=== PATIENT | male | born 1950 | race African-American/Black ===

== ENCOUNTER 2018-01-15 19:28 | Emergency (ER) | payer OTHER ==
[~2018-01-15] VITALS: Ht 167.6 cm; Wt 66.3 kg
[2018-01-15 19:36] VITALS: BP 170/90
--- NOTE | 2018-01-15 19:38 | NUR ---
TO BED # 11 AMBULATORY, REPORT GIVEN TO BRADLEY SMITH
--- NOTE | 2018-01-15 20:00 | NUR ---
PT BIB SELF C/O HIGH BLOOD SUGAR READ AT HOME, BLISTER TO RT FOOT,N/T TO EXTREMEITIES. PT IS AWAKE AND ALERT, ACTING APPROPRIATE, SITTING IN BED GRANDAUGHTER AT BEDSIDE. PT STATES HE TOOK HIS INSULIN THIS AM THEN RE TOOK BS AND IT READ HIGH. NO OPEN SKIN NOTED , EDEMA NOTED TO BL LOWER LEGS, +CMS. PMH HIGH CHOLESTEROL, HTN, DM NKDA
[2018-01-15] MEDS ORDERED: NACL 0.9% 2,000 ML IV ONE (20:05)
--- NOTE | 2018-01-15 20:26 | NUR ---
DR SMYTH AT BEDSIDE EVALUATING PT.
[2018-01-15 20:54] LABS: ANION GAP 9.9 (8-16); CARBON DIOXIDE 28.6 mmol/L (21-32); CREATININE 1.6 mg/dL (0.7-1.3); POTASSIUM 4.5 mmol/L (3.5-5.1)
[2018-01-15] MEDS ORDERED: NACL 0.9% 1,000 ML IV ONE (21:05)
[2018-01-15 21:59] VITALS: BP 187/97
--- NOTE | 2018-01-15 21:59 | NUR ---
Patient discharged with v/s stable. Written and verbal after care instructions given and explained. Patient verbalized understanding. Ambulatory with steady gait. All questions addressed prior to discharge. Advised to follow up with PMD.
== END 2018-01-15 21:59 | disposition home or self-care (01) ==
LOC: MED 19:28
DX: E11.65 Type 2 diabetes mellitus with hyperglycemia (principal); R42 Dizziness and giddiness; I10 Essential (primary) hypertension
CPT/HCPCS: 36415; 80048; 82948; 96360; 96361; 99285; J7030; 99284

== ENCOUNTER 2018-04-12 00:20 | Emergency (ER) | payer OTHER ==
[~2018-04-12] VITALS: Ht 167.6 cm; Wt 68.0 kg
[2018-04-12 00:42] VITALS: BP 166/95
--- NOTE | 2018-04-12 00:45 | NUR ---
PT TAKEN TO BED 11
--- NOTE | 2018-04-12 00:50 | NUR ---
Note undone in EDM - 04/12/18 at 0056 by DONNA 67 Y/O M PRESENTS TO ED W/C/O L KNEE L LEG PAIN STATUS POST T/C YESTERDAY. +SEATBELT, PT WAS PASSANGER. PT DENIES LOC, DENIES HITTING HEAD. PT DENIES N/V/D; AAOX4, PERRL, WITH EVEN AND STEADY GAIT; LUNGS CLEAR BL, BREATHING UNLABORED; HR EVEN AND REGULAR, BL PERIPHERAL PULSES PRESENT; BS ACTIVE X4, NO TENDERNESS TO PALPATION, NO HEPATOSPLENOMEGALLY PALPATED, RESONANT TO PERCUSSION; PT DENIES ANY FEVER, CP, SOB, OR COUGH AT THIS TIME; PT STATES 8/10 PAIN AT THIS TIME; VSS; PATIENT POSITIONED FOR COMFORT; HOB ELEVATED; BEDRAILS UP X2; BED DOWN.
--- NOTE | 2018-04-12 00:50 | NUR ---
67 Y/O M PRESENTS TO ED W/C/O L KNEE L LEG PAIN STATUS POST T/C YESTERDAY. +SEATBELT, PT WAS DIRECTOR DATA MANAGEMENT. PT DENIES LOC, DENIES HITTING HEAD. PT DENIES N/V/D; AAOX4, PERRL, WITH EVEN AND STEADY GAIT; LUNGS CLEAR BL, BREATHING UNLABORED; HR EVEN AND REGULAR, BL PERIPHERAL PULSES PRESENT; BS ACTIVE X4, NO TENDERNESS TO PALPATION, NO HEPATOSPLENOMEGALLY PALPATED, RESONANT TO PERCUSSION; PT DENIES ANY FEVER, CP, SOB, OR COUGH AT THIS TIME; PT STATES 8/10 PAIN AT THIS TIME; VSS; PATIENT POSITIONED FOR COMFORT; HOB ELEVATED; BEDRAILS UP X2; BED DOWN.
[2018-04-12] MEDS ORDERED: KETOROLAC 60 MG/2 ML VIAL IM ONE (01:00)
--- NOTE | 2018-04-12 02:00 | NUR ---
DPatient discharged with v/s stable. Written and verbal after care instructions given and explained. Patient alert, oriented and verbalized understanding of instructions. Ambulatory with steady gait. All questions addressed prior to discharge. ID band removed. Patient advised to follow up with PMD. Rx of NORCO, IBUPROFEN given. Patient educated on indication of medication including possible reaction and side effects. Opportunity to ask questions provided and answered.
[2018-04-12 02:03] VITALS: BP 136/81
== END 2018-04-12 02:00 | disposition home or self-care (01) ==
LOC: MED 00:20
DX: M25.572 Pain in left ankle and joints of left foot (principal); E11.9 Type 2 diabetes mellitus without complications; I10 Essential (primary) hypertension; V89.2XXA Person injured in unspecified motor-vehicle accident, traffic, initial encounter; Y93.89 Activity, other specified; Y92.89 Other specified places as the place of occurrence of the external cause; Y99.8 Other external cause status
CPT/HCPCS: 96372; 99283; J1885

== ENCOUNTER 2018-09-12 12:26 | Inpatient (IN) | payer OTHER ==
[~2018-09-12] VITALS: Ht 170.2 cm; Wt 74.4 kg
[2018-09-12 12:36] VITALS: BP 224/116
--- NOTE | 2018-09-12 12:45 | NUR ---
68 YEAR OLD MALE BIB SELF C/O BUE, BLE, AND ORBITAL EDEMA. PT REPORTS HEADACHE AT 10. UPON ASSESSMENT PT WAS NOTED WITH OPEN WOUNDS TO LLE. PMH OF DM AND HTN. CONNECTED TO MONITOR AND WAITING FOR ER MD EVALUATION. Addendum: 09/12/18 at 1319 by JEAN PT WAS NOTED WITH OPEN WOUNDS TO RIGHT LOWER LEG AND ANKLE.
[2018-09-12] MEDS ORDERED: hydrALAZINE 20 MG/ML VIAL IVP ONE (13:25)
[2018-09-12] MEDS ORDERED: ENALAPRILAT 2.5 MG/2 ML VIAL IVP ONE (13:25)
[2018-09-12 14:37] LABS: BASOPHILS % (AUTO) 0.7 % (0.0-2.0); EOSINOPHILS # (AUTO) 0.1 K/uL (0-0.4); HEMATOCRIT 28.3 % (36-52); HEMOGLOBIN 9.7 g/dL (12.0-18.0); LYMPHOCYTES # (AUTO) 0.9 K/uL (2.0-11.5); LYMPHOCYTES % (AUTO) 12.2 % (20.5-51.1); MEAN CORPUSCULAR HEMOGLOBIN 29 pg (27-31); MEAN CORPUSCULAR HGB CONC 34 g/dL (33-37); MONOCYTES # (AUTO) 0.5 K/uL (0.8-1.0); MONOCYTES % (AUTO) 6.8 % (1.7-9.3); NEUTROPHILS # (AUTO) 5.6 K/uL (1.8-7.7); NEUTROPHILS % (AUTO) 79.3 % (42.2-75.2); PLATELET COUNT (AUTO) 329 K/uL (140-450); RED BLOOD CELL COUNT(AUTO) 3.37 MIL/uL (4.20-6.10); RED CELL DISTRIBUTION WIDTH 12.6 % (11.6-13.7)
--- NOTE | 2018-09-12 14:50 | NUR ---
BP REDUCED TO 169/80 POST MEDICATION ADMIN. WILL CONTINUE TO ASSESS.
[2018-09-12 15:04] LABS: CREATINE KINASE MB 3.3 ng/mL (0-3.6)
[2018-09-12 15:07] LABS: CHOL/HDL RATIO 4.4 (1-4.5)
[2018-09-12 15:08] LABS: ANION GAP 12.5 (8-16); CARBON DIOXIDE 27.3 mmol/L (21-32); CREATININE 1.9 mg/dL (0.7-1.3); POTASSIUM 3.8 mmol/L (3.5-5.1); TOTAL BILIRUBIN 0.2 mg/dL (0.0-1.0)
[2018-09-12 15:09] LABS: ALBUMIN 1.9 g/dL (3.4-5.0)
[2018-09-12] MEDS ORDERED: INSULIN REGULAR, HUMAN 100 UNIT/ML VIAL IVP ONE (15:20)
[2018-09-12] MEDS ORDERED: SIMVASTATIN 40 MG TAB PO STA (15:21)
[2018-09-12] MEDS ORDERED: FUROSEMIDE 40 MG/4 ML VIAL IVP ONE (15:55)
--- NOTE | 2018-09-12 16:16 | NUR ---
PT UNABLE TO RECALL NAMES/DOSES OF HOME MEDICATIONS AT THIS TIME.
[2018-09-12] MEDS ORDERED: DEXTROSE 50% 50 ML SYR IVP PRN (17:20)
--- NOTE | 2018-09-12 17:20 | NUR ---
RECEIVED REPORT FROM ER NURSE ABUNDIO. PATIENT ARRIVED UNIT VIA GURNEY ACCOMPANIED WITH SISTER KENDALL. PATIENT IS AOX4. DENIES PAIN. RA. NO SIGNS OF DISTRESS NOTED. IV ON R AC 22, INTACT AND CLEAN, NOT INFUSING AT THIS TIME. RIGHT LATERAL LEG WOUND AND MID LEG WOUND NOTED. PICTURES TAKEN. PATIENT IS ABLE TO AMBULATE WITH STEADY GAIT. ORIENTED PATIENT TO THE ROOM, AND INSTRUCTED PATIENT ON HOW TO USE THE CALL LIGHT, TV, BED REMOTE,LIGHTS AND BATHROOM. PATIENT VERBALIZED UNDERSTANDING. DISCUSSED PLAN OF CARE WITH PATIENT AND PATIENT VERBALIZED UNDERSTANDING. VITAL SIGNS TAKEN. MRSA TAKEN. TELE MONITOR ATTACHED. BED IN LOW POSITION AND CALL LIGHT WITHIN REACH.
--- NOTE | 2018-09-12 17:23 | NUR ---
Patient will be admitted to care of [facility]. Admited to TELE VIA GUENRY WITH VSS. Will go to room 105B. Belongings list completed. Report to RUSS SMITH.
[2018-09-12] MEDS ORDERED: DOCUSATE SODIUM 250 MG GELCAP PO PRN (17:25)
[2018-09-12] MEDS ORDERED: guaiFENesin DM 200/20 MG-10 ML 10 ML UDC PO PRN (17:25)
[2018-09-12] MEDS ORDERED: ALBUTEROL 0.083% 2.5 MG/3 ML NEBU INH PRN (17:25)
[2018-09-12] MEDS ORDERED: MAG SULF 2000 MG/WATER PREMIX 50 ML IV PRN (17:25)
[2018-09-12] MEDS ORDERED: ZOLPIDEM 5 MG TAB PO PRN (17:25)
[2018-09-12] MEDS ORDERED: ACETAMINOPHEN 650 MG SUPP RC PRN (17:25)
[2018-09-12] MEDS ORDERED: HYDROcodone/APAP 5/325 MG 1 TAB TAB PO PRN (17:25)
[2018-09-12] MEDS ORDERED: ACETAMINOPHEN 325 MG TAB PO PRN (17:25)
[2018-09-12] MEDS ORDERED: LORazepam 2 MG/ML VIAL IVP PRN (17:25)
[2018-09-12] MEDS ORDERED: ALUMINUM HYD/MAG/SIMETHICONE 30 ML UDC PO PRN (17:25)
[2018-09-12] MEDS ORDERED: POTASSIUM CHLORIDE 40 MEQ, LIDOCAINE 1% 25 MG in NACL 0.9% 250 ML IV PRN (17:25)
[2018-09-12] MEDS ORDERED: SODIUM PHOSPHATE 118 ML ENEM RC PRN (17:25)
[2018-09-12] MEDS ORDERED: MAGNESIUM OXIDE 400 MG TAB PO PRN (17:25)
[2018-09-12] MEDS ORDERED: ONDANSETRON 4 MG/2 ML VIAL IVP PRN (17:25)
[2018-09-12] MEDS ORDERED: IPRATROPIUM 0.02% 0.5 MG/2.5 ML NEBU INH PRN (17:25)
[2018-09-12] MEDS ORDERED: POTASSIUM CHLORIDE 10 MEQ TABER PO PRN (17:25)
[2018-09-12] MEDS ORDERED: BISACODYL 10 MG SUPP RC PRN (17:25)
[2018-09-12] MEDS ORDERED: diphenhydrAMINE 50 MG/ML VIAL IVP PRN (17:25)
--- NOTE | 2018-09-12 18:05 | NUR ---
PATIENT IS SITTING UP ON BED AND EATING DINNER. DENIES PAIN AND SOB. NO SIGNS OF DISTRESS NOTED.
[2018-09-12 19:00] VITALS: BP 179/82
--- NOTE | 2018-09-12 19:25 | NUR ---
ENDORSED PATIENT AT BEDSIDE TO METAPHYSICIAN NURSE FOR CONTINUITY OF CARE. PATIENT IS IN STABLE CONDITION.
--- NOTE | 2018-09-12 19:30 | NUR ---
RECEIVED BEDSIDE REPORT FROM LUIS SOLANO, PER DAY SHIFT EXECUTIVE DIRECTOR OF NURSING NEEDS TO CE COMPLETED. PATIENT IN BED, AAOX4, DENIES PAIN. ADMISSION QUESTIONS ASKED. IV IN RIGHT AC 22 G SL. NOTED WOUND ON LEG, PICTURE IN CHART. MRSA SCREEN COLLECTED AND SENT TO LAB. EXPLAINED PLAN OF CARE, WILL CONTINUE TO MONITOR.
[2018-09-12] MEDS: cloNIDine 0.1 MG TAB PO PRN (20:20)
[2018-09-12] MEDS: BLOOD GLUCOSE MONITORING 1 DEV DEV FS SCH (20:23)
[2018-09-12] MEDS: INSULIN LISPRO SLIDING SCALE 100 UNITS/ML VIAL SUBQ PRN (20:23)
--- NOTE | 2018-09-12 20:24 | NUR ---
PTS BP 179/82 HR 110 GAVE CATAPRES WILL REASSESS. BG 462 GAVE 14 UNITS ACCORDING TO MD ORDER. WILL REASSESS AND CALL
--- NOTE | 2018-09-12 21:10 | NUR ---
BP 120/63 HR 80 AFTER CLONIDINE. BG 429 AFTER [address] UN[address]MINISTR[address]. [address] CECILIA RODRIGUEZ SINGING TEACHER.
--- NOTE | 2018-09-12 22:55 | NUR ---
CALLED MARGAUX FROM RADIOLOGY REGARDING ORDERS FOR DR BROOKS. DR BROOKS IS NOT AVAILABLE RIGHT NOW DR RODRIGUEZ IS LOCKER OPERATOR. NOTIFIED MARGAUX THAT DR BROOKS SHOULD BE THE ONE TO VERIFY THE DUPLICATE ORDER. WILL ENDORSE TO DAY SHIFT TO ENSURE ORDER IS CORRECTED ONCE DR BROOKS IS AVAILABLE.
--- NOTE | 2018-09-12 23:27 | NUR ---
CALL BACK FROM DR RODRIGUEZ ORDER FOR 20 U HUMALOG NOW AND TO INCREASE MAINTENANCE DOSAGE OF GLUCOTROL TO 10 MG A DAY AND TO GIVE ONE DOSE NOW OF GLUCOTROL. WILL PUT IN ORDERS.
[2018-09-12] MEDS ORDERED: INSULIN LISPRO 100 UNITS/ML VIAL SUBQ ONE (23:30)
[2018-09-12] MEDS ORDERED: glipiZIDE 10 MG TAB PO ONE (23:35)
--- NOTE | 2018-09-12 23:44 | NUR ---
GAVE DUE MEDICATIONS
[2018-09-13] VITALS: BP 125/70
--- NOTE | 2018-09-13 01:42 | NUR ---
BLOOD GLUCOSE 161
[2018-09-13] MEDS ORDERED: INFLUENZA VIRUS VACCINE QUAD 0.5 ML SYR IMVAC PRN ×2 (03:30→05:05)
[2018-09-13] MEDS ORDERED: PNEUMOCOCCAL VACCINE 23 MCG/0.5 ML VIAL IMVAC ONE (03:30)
[2018-09-13 04:00] VITALS: BP 147/88
--- NOTE | 2018-09-13 04:00 | NUR ---
V/S TAKEN BP WITHIN BASELINE WILL CONTINUE TO MONITOR
[2018-09-13] MEDS ORDERED: PNEUMOCOCCAL VACCINE 23 MCG/0.5 ML VIAL IMVAC PRN (05:05)
[2018-09-13] MEDS: BLOOD GLUCOSE MONITORING 1 DEV DEV FS SCH ×2 (06:09→12:27)
[2018-09-13] MEDS: glipiZIDE 5 MG TAB PO SCH ×2 (06:14→17:30)
--- NOTE | 2018-09-13 07:02 | NUR ---
BG 104 NO COVERAGE NEEDED
[2018-09-13 07:30] LABS: BASOPHILS % (AUTO) 0.6 % (0.0-2.0); EOSINOPHILS # (AUTO) 0.1 K/uL (0-0.4); EOSINOPHILS % (AUTO) 1.2 % (0.0-4.0); HEMATOCRIT 26.6 % (36-52); HEMOGLOBIN 9.1 g/dL (12.0-18.0); LYMPHOCYTES # (AUTO) 0.9 K/uL (2.0-11.5); LYMPHOCYTES % (AUTO) 12.8 % (20.5-51.1); MEAN CORPUSCULAR HEMOGLOBIN 28 pg (27-31); MEAN CORPUSCULAR HGB CONC 34 g/dL (33-37); MEAN CORPUSCULAR VOLUME 82.4 fL (80-94); MONOCYTES # (AUTO) 0.4 K/uL (0.8-1.0); MONOCYTES % (AUTO) 5.3 % (1.7-9.3); NEUTROPHILS # (AUTO) 5.4 K/uL (1.8-7.7); NEUTROPHILS % (AUTO) 80.1 % (42.2-75.2); PLATELET COUNT (AUTO) 343 K/uL (140-450); RED BLOOD CELL COUNT(AUTO) 3.23 MIL/uL (4.20-6.10); RED CELL DISTRIBUTION WIDTH 12.8 % (11.6-13.7); WHITE BLOOD COUNT (AUTO) 6.8 K/uL (4.8-10.8)
[2018-09-13] MEDS ORDERED: glipiZIDE 5 MG TAB PO SCH (07:30)
--- NOTE | 2018-09-13 07:37 | NUR ---
ENDORSED PATIENT TO DAY SHIFT NURSE PATIENT STABLE
--- NOTE | 2018-09-13 07:38 | NUR ---
RECEIVED REPORT FROM BARKING MACHINE FEEDER NURSE [facility] FOR CONTINUITY OF CARE. PT IN STABLE CONDITION. RESPIRATIONS EVEN AND UNLABORED. IV INTACT AND PATENT. BED IN LOW POSITION. CALL LIGHT AT BEDSIDE. SAFETY MEASURES IN PLACE. WILL CONTINUE MONITOR.
[2018-09-13 08:00] VITALS: BP 198/99
[2018-09-13] MEDS: cloNIDine 0.1 MG TAB PO PRN (08:01)
[2018-09-13 08:35] LABS: CARBON DIOXIDE 22.4 mmol/L (21-32)
--- NOTE | 2018-09-13 08:46 | NUR ---
RECEIVED PATIENT ON ROOM AIR, PULSE OX SAT 98%. PATIENT DENIES ANY SHORTNESS OF BREATH. BREATH SOUNDS CLEAR. NO PRN TX GIVEN; NO TX INDICATED AT THIS TIME. NO RESPIRATORY DISTRESS NOTED AT THIS TIME. AMBU BAG AT BEDSIDE. WILL CONTINUE TO MONITOR.
[2018-09-13] MEDS ORDERED: LISINOPRIL 20 MG TAB PO SCH (09:00)
[2018-09-13] MEDS ORDERED: METOPROLOL 50 MG TAB PO SCH (09:00)
[2018-09-13 09:05] LABS: ANION GAP 16.2 (8-16); CREATININE 1.9 mg/dL (0.7-1.3)
--- NOTE | 2018-09-13 09:10 | NUR ---
CRITICAL LAB: POTASSIUM 2.6 DR BROOKS AWARE. ORDERS GIVEN.
[2018-09-13 09:11] LABS: POTASSIUM 2.6 mmol/L (3.5-5.1)
[2018-09-13 10:24] LABS: CHOL/HDL RATIO 4.1 (1-4.5)
[2018-09-13 10:26] LABS: PROTHROMBIN TIME 8.6 secs (10.8-13.4)
[2018-09-13] MEDS ORDERED: FUROSEMIDE 40 MG TAB PO SCH (10:45)
[2018-09-13 12:00] VITALS: BP 146/75
--- NOTE | 2018-09-13 12:14 | NUR ---
PT LYING IN BED IN STABLE CONDITION WATCHING TV. RESPIRATIONS EVEN AND UNLABORED. BED IN LOW POSITION. CALL LIGHT AT BEDSIDE. WILL CONTINUE TO MONITOR.
[2018-09-13] MEDS: INSULIN LISPRO SLIDING SCALE 100 UNITS/ML VIAL SUBQ PRN ×2 (12:38→14:35)
[2018-09-13] MEDS ORDERED: POTASSIUM CHLORIDE 10 MEQ TABER PO SCH (14:00)
--- NOTE | 2018-09-13 14:25 | NUR ---
PT LYING IN BED IN STABLE CONDITION. BED IN LOW POSITION. CALL LIGHT AT BEDSIDE. WILL CONTINUE TO MONITOR.
[2018-09-13 16:00] VITALS: BP 149/79
--- NOTE | 2018-09-13 16:00 | NUR ---
PICTURES TAKEN OF RIGHT LOWER LEG WOUND, CLEANED WITH STERILE WATER, PAT DRY, OPEN TO AIR.
[2018-09-13 16:56] LABS: ANION GAP 10.8 (8-16); CARBON DIOXIDE 26.2 mmol/L (21-32)
--- NOTE | 2018-09-13 18:10 | NUR ---
GAVE DISCHARGE INSTRUCTIONS AND PRESCRIPTIONS TO TAKE TO PHARMACY. PT VERBALIZED UNDERSTANDING OF INSTRUCTIONS. IV REMOVED LUMEN INTACT. ID BAND REMOVED. GAVE INFLUENZA/PNA VACCINE. PT TOLERATED WELL. PT REFUSED WHEELCHAIR, WALKED PT TO LOBBY WHERE HE OPTED TO WAIT FOR FAMILY MEMBER TO TELEPHONE ORDER SUPERVISOR. PT CALLED MULTIPLE FAMILY MEMBERS TO SEE WHO WILL PICK HIM UP FIRST. PT WAS OFFERED MULTIPLE TIMES TO WAIT IN ROOM TILL FAMILY CAME, PT REFUSED. PT WAITED IN LOBBY IN STABLE CONDITION. AAOX4.
[2018-09-13] MEDS ORDERED: ATORVASTATIN 20 MG TAB PO SCH (19:00)
[2018-09-14] MEDS ORDERED: TAMSULOSIN 0.4 MG CAP PO SCH (08:30)
--- NOTE | 2018-09-14 08:51 | NUR ---
Wound consult not done. pt. discharged.
[2018-09-14] MEDS ORDERED: FUROSEMIDE 40 MG TAB PO SCH (09:00)
--- NOTE | 2018-09-14 15:27 | NUR ---
CALLED 'S OFFICE AND SET UP FOLLOW UP APPOINTMENT FOR September. [place]ESS [id number] [address] [place] [facility] PHONE [phone]. I CALLED THE PATIENT AND HE HAD ME SPEAK WITH HIS SISTER, KENDALL STARKS HER PHONE [phone]. SHE SAID THE PATIENT IS NOT GOING BACK TO [place], HE WILL BE WITH HER, [address]. DOES NOT WANT TO FOLLOW UP WITH DR. HATCH. SHE SAID THAT SHE WILL CALL [facility] AND CHANGE THE ADDRESS AND SHE SAID THE PATIENT WILL FOLLOW UP WITH DR. BALDWIN [phone]. SHE WILL CALL FOR AN APPOINTMENT. I WILL CALL HER BACK TOMORROW TO FOLLOW UP.
--- NOTE | 2018-09-15 12:33 | NUR ---
SPOKE WITH THE SISTER KENDALL STARKS, . SHE SAID SHE SPOKE WITH [facility] AND THEY WILL CHANGE THE PCP TO DR. BALDWIN. KENDALL CALLED DR. BALDWIN'S OFFICE AND THEY ARE WORKING ON GETTING THE PATIENT'S INFORMATION AND THEN GETTING AN APPOINTMENT. KENDALL ASKED ME TO CANCEL THE APPOINTMENT WITH DR. HATCH IN [facility], WHICH I WILL DO..
== END 2018-09-13 18:10 | disposition home or self-care (01) | DRG 639 ==
LOC: MED 12:26 → MTU 16:31
PROVIDERS: ADMIT Internal Medicine Pulmonary Disease; ATTEND Internal Medicine Pulmonary Disease
PROC: 3E02340 Introduction of Influenza Vaccine into Muscle, Percutaneous Approach (ICD-10-PCS; principal; 2018-09-13)
PROC: 3E0234Z Introduction of Serum, Toxoid and Vaccine into Muscle, Percutaneous Approach (ICD-10-PCS; 2018-09-13)
DX: E11.65 Type 2 diabetes mellitus with hyperglycemia (principal); E87.6 Hypokalemia; E78.5 Hyperlipidemia, unspecified; E11.22 Type 2 diabetes mellitus with diabetic chronic kidney disease; I12.9 Hypertensive chronic kidney disease with stage 1 through stage 4 chronic kidney disease, or unspecified chronic kidney disease; D64.9 Anemia, unspecified; R33.9 Retention of urine, unspecified; Z23 Encounter for immunization; Z79.84 Long term (current) use of oral hypoglycemic drugs; N18.3 Chronic kidney disease, stage 3 (moderate)
CPT/HCPCS: 36415; 71045; 76770; 80048; 80053; 82550; 82553; 82948; 83036; 83880; 84484; 85025; 85379; 85610; 85730; 87081; 90732; 93005; 96374; 96375; 99285; J0360; J1815; J1940; J2001; J3480; J3490; J7030; Q0092

== ENCOUNTER 2018-09-16 11:00 | Inpatient (IN) | payer OTHER ==
[~2018-09-16] VITALS: Ht 167.6 cm; Wt 67.6 kg
[2018-09-16 11:03] VITALS: BP 212/85
--- NOTE | 2018-09-16 11:10 | NUR ---
Patient ambulated to bed 8 with family. RN evaluating patient at bedside.
--- NOTE | 2018-09-16 11:12 | NUR ---
68 Y M BIB SISTER WITH C/O MICHELINE LEG PAIN AND GROIN PAIN X 3 DAYS. PAIN 8/10. +SWELLING AT GROIN SITE. BILATERAL LEG EDEMA 3+, BP 212/85, DR GIBSON NOTIFIED. BED IS DOWN, LOCKED, BED RAIL X 1, ERMD NOTIFIED. PMH- HTN, DIABETES, HIGH CHOLESTEROL MEDS- CANT RECALL NAMES
--- NOTE | 2018-09-16 11:29 | NUR ---
Dr. Ocasio evaluating patient at bedside.
[2018-09-16] MEDS ORDERED: LISINOPRIL 5 MG TAB PO STA (11:31)
[2018-09-16] MEDS ORDERED: FUROSEMIDE 40 MG/4 ML VIAL IVP ONE (11:35)
[2018-09-16 11:58] LABS: BASOPHILS % (AUTO) 0.3 % (0.0-2.0); EOSINOPHILS # (AUTO) 0.1 K/uL (0-0.4); EOSINOPHILS % (AUTO) 1.8 % (0.0-4.0); HEMATOCRIT 26.4 % (36-52); HEMOGLOBIN 8.9 g/dL (12.0-18.0); LYMPHOCYTES # (AUTO) 0.7 K/uL (2.0-11.5); LYMPHOCYTES % (AUTO) 11.5 % (20.5-51.1); MEAN CORPUSCULAR HEMOGLOBIN 29 pg (27-31); MEAN CORPUSCULAR HGB CONC 34 g/dL (33-37); MEAN CORPUSCULAR VOLUME 84.5 fL (80-94); MONOCYTES # (AUTO) 0.5 K/uL (0.8-1.0); MONOCYTES % (AUTO) 8.1 % (1.7-9.3); NEUTROPHILS # (AUTO) 4.8 K/uL (1.8-7.7); NEUTROPHILS % (AUTO) 78.3 % (42.2-75.2); PLATELET COUNT (AUTO) 318 K/uL (140-450); RED BLOOD CELL COUNT(AUTO) 3.13 MIL/uL (4.20-6.10); RED CELL DISTRIBUTION WIDTH 12.9 % (11.6-13.7); WHITE BLOOD COUNT (AUTO) 6.2 K/uL (4.8-10.8)
[2018-09-16 12:17] LABS: ALBUMIN 1.9 g/dL (3.4-5.0); ANION GAP 10.3 (8-16); CARBON DIOXIDE 28.5 mmol/L (21-32); CREATININE 1.9 mg/dL (0.7-1.3); POTASSIUM 4.8 mmol/L (3.5-5.1); TOTAL BILIRUBIN 0.3 mg/dL (0.0-1.0)
[2018-09-16] MEDS ORDERED: LISINOPRIL 10 MG TAB ONE (12:23)
[2018-09-16] MEDS ORDERED: INSULIN REGULAR, HUMAN 100 UNIT/ML VIAL IVP ONE (12:30)
--- NOTE | 2018-09-16 12:30 | NUR ---
RAD AT BEDSIDE
--- NOTE | 2018-09-16 12:31 | NUR ---
CRITICAL LABS DOCUMENTED, REPORT FROM [place] IN LAB
[2018-09-16] MEDS ORDERED: hydrALAZINE 20 MG/ML VIAL IVP ONE (13:15)
--- NOTE | 2018-09-16 13:16 | NUR ---
bp 216/100, dr washington notified
--- NOTE | 2018-09-16 13:54 | NUR ---
pt doesnt recall the names of his medications, pt states his sister has the list and will give them to attending nurse when she arrives to hospital. brother at bedside
--- NOTE | 2018-09-16 13:54 | NUR ---
new bp is 175/79
[2018-09-16] MEDS ORDERED: ZOLPIDEM 5 MG TAB PO PRN (14:10)
[2018-09-16] MEDS ORDERED: DYR50 PO (14:16)
[2018-09-16] MEDS ORDERED: METF1000 PO (14:16)
[2018-09-16] MEDS ORDERED: METO25TA PO (14:16)
[2018-09-16] MEDS ORDERED: FERR325E14 PO (14:17)
[2018-09-16] MEDS ORDERED: GLIP10TA3 PO (14:17)
[2018-09-16] MEDS ORDERED: LISI-420 PO (14:17)
[2018-09-16] MEDS ORDERED: SIMV40TA1 PO (14:17)
[2018-09-16] MEDS ORDERED: FURO-572 PO (14:17)
[2018-09-16] MEDS ORDERED: APID SUBQ (14:17)
[2018-09-16] MEDS ORDERED: BENA40TA PO (14:17)
--- NOTE | 2018-09-16 15:25 | NUR ---
Patient will be admitted to care of dr sánchez. Admited to tele. Will go to room 112 a. Belongings list completed. Report to kenneth maria.
--- NOTE | 2018-09-16 15:25 | NUR ---
RECEIVED PT FROM CLAUDE ER NURSE. ORIENTED PT TO UNIT. ASSESSED VITALS. WENT OVER CARE PLAN AND PERFORMED ASSESSMENT, TOOK PHOTOS OF PTS OPEN TEARS ON LEGS AND PLACED THE PHOTOS IN THE PTS CHART. PLACED PT ON FALL PRECAUTIONS. PLACED YELLOW ARM BAND ON PT. AND YELLOW SIGN ON DOOR. WILL CONTINUE TO MONITOR PT
[2018-09-16 17:00] VITALS: BP 147/72
[2018-09-16] MEDS ORDERED: DEXTROSE 50% 50 ML SYR IVP PRN (17:50)
[2018-09-16] MEDS: INSULIN LISPRO SLIDING SCALE 100 UNITS/ML VIAL SUBQ PRN (17:59)
--- NOTE | 2018-09-16 18:30 | NUR ---
Dr. Montgomery at bedside to assess pt. Pt's sister & daughter at bedside as well. Pt lying comfortably in bed, no signs of distress. Call light within reach.
--- NOTE | 2018-09-16 19:34 | NUR ---
HANDOFF REPORT GIVEN TO SHIFT PRODUCTION ASSOCIATE NURSE. FAMILY AT BEDSIDE. PT IS STABLE AND APPEARS TO BE IN NO APPARENT DISTRESS.
--- NOTE | 2018-09-16 19:35 | NUR ---
RECEIVED BEDSIDE REPORT FROM JENSEN SMITH. PT IS AAO X 4. ON ROOM AIR DENIES ANY SOB OR PAIN AT THIS TIME. HAS IV ON RAC 20G SL. PT WITH WOUND ON R WATSON. PICTURES WERE TAKEN BY NURSE. MICHELINE LEG EDEMA PITTING +3. GOOD CIRCULATION AND SENSATION ON LEGS. SISTER AND DAUGHTER AT BEDSIDE. PLAN OF CARE DISCUSSED. CALL LIGHT WITHIN REACH. WILL CONTINUE TO MONITOR.
[2018-09-16 20:00] VITALS: BP 156/96
[2018-09-16] MEDS: BLOOD GLUCOSE MONITORING 1 DEV DEV FS SCH (20:21)
[2018-09-16] MEDS: METOPROLOL 50 MG TAB PO SCH (20:32)
--- NOTE | 2018-09-16 20:32 | NUR ---
DUE MEDICATIONS GIVEN PT TOLERATED WELL. BLOOD SUGAR 106. PT EATING DINNER. VITAL SIGNS ARE STABLE. Addendum: 09/16/18 at 2240 by Rose Jamison RN B/P 156/96 HR 89 100% ROOM AIR. REASSESSMENT FOR HYDRALAZINE FOR 1400 WAS NOT DOCUMENTED. WILL CONTINUE TO MONITOR.
[2018-09-16] MEDS: FUROSEMIDE 100 MG/10 ML VIAL IV SCH (20:34)
[2018-09-16] MEDS ORDERED: FUROSEMIDE 100 MG/10 ML VIAL IV SCH (21:00)
[2018-09-16] MEDS ORDERED: METOPROLOL 50 MG TAB PO SCH (21:00)
[2018-09-16] MEDS ORDERED: INSULIN LANTUS 100 UNITS/ML 10 ML VIAL SUBQ SCH (23:05)
--- NOTE | 2018-09-16 23:48 | NUR ---
BLOOD GLUCOSE 184. PER MD GIVE LANTUS 20U. PT TOLERATED WELL. HAS SNACK AT BEDSIDE. VS ARE STABLE B/P TRENDING DOWN 148/77 HR 70. ALL NEEDS MET AT THIS TIME. CALL LIGHT WITH REACH. WILL CONTINUE TO MONITOR.
[2018-09-17] VITALS (7 sets, daily range): BP systolic 134–173; BP diastolic 64–77
--- NOTE | 2018-09-17 01:00 | NUR ---
PT IS SLEEPING COMFORTABLY IN BED. NO S/S OF DISTRESS. RESPIRATIONS ARE EQUAL AND UNLABORED. CALL LIGHT WITHIN REACH.
--- NOTE | 2018-09-17 04:00 | NUR ---
VITAL SIGNS ARE STABLE. B/P 151/69 HR 71. SAFETY MEASURES ARE MET. CALL LIGHT WITHIN REACH.
[2018-09-17] MEDS: FUROSEMIDE 100 MG/10 ML VIAL IV SCH ×2 (04:25→21:25)
[2018-09-17] MEDS: INSULIN LISPRO SLIDING SCALE 100 UNITS/ML VIAL SUBQ PRN ×3 (05:59→21:21)
[2018-09-17] MEDS: BLOOD GLUCOSE MONITORING 1 DEV DEV FS SCH ×4 (06:02→21:20)
[2018-09-17 07:15] LABS: BASOPHILS % (AUTO) 0.4 % (0.0-2.0); EOSINOPHILS # (AUTO) 0.2 K/uL (0-0.4); EOSINOPHILS % (AUTO) 2.7 % (0.0-4.0); HEMATOCRIT 25.7 % (36-52); HEMOGLOBIN 8.8 g/dL (12.0-18.0); LYMPHOCYTES % (AUTO) 18.2 % (20.5-51.1); MEAN CORPUSCULAR HEMOGLOBIN 29 pg (27-31); MEAN CORPUSCULAR HGB CONC 34 g/dL (33-37); MEAN CORPUSCULAR VOLUME 83.3 fL (80-94); MONOCYTES # (AUTO) 0.3 K/uL (0.8-1.0); MONOCYTES % (AUTO) 5.5 % (1.7-9.3); NEUTROPHILS # (AUTO) 4.1 K/uL (1.8-7.7); NEUTROPHILS % (AUTO) 73.2 % (42.2-75.2); PLATELET COUNT (AUTO) 335 K/uL (140-450); RED BLOOD CELL COUNT(AUTO) 3.09 MIL/uL (4.20-6.10); RED CELL DISTRIBUTION WIDTH 12.9 % (11.6-13.7); WHITE BLOOD COUNT (AUTO) 5.7 K/uL (4.8-10.8)
--- NOTE | 2018-09-17 07:18 | NUR ---
GAVE BEDSIDE REPORT TO FAN SMITH. PT ENDORSED IN STABLE CONDITION.
--- NOTE | 2018-09-17 07:33 | NUR ---
RECEIVED HAND OFF REPORT FROM CLAIM TECHNICIAN NURSE. PT STABLE AND RESTING IN BED. WILL CONTINUE TO MONITOR
[2018-09-17 07:43] LABS: PHOSPHORUS 3.9 mg/dL (2.5-4.9)
[2018-09-17 07:46] LABS: ALBUMIN 1.5 g/dL (3.4-5.0); ANION GAP 9.8 (8-16); CARBON DIOXIDE 29.8 mmol/L (21-32); POTASSIUM 3.6 mmol/L (3.5-5.1); TOTAL BILIRUBIN 0.1 mg/dL (0.0-1.0)
[2018-09-17] MEDS: DOCUSATE SODIUM 100 MG GELCAP PO SCH (08:28)
[2018-09-17] MEDS: BENAZEPRIL 20 MG TAB PO SCH (08:28)
[2018-09-17] MEDS: TAMSULOSIN 0.4 MG CAP PO SCH (08:29)
[2018-09-17] MEDS: METOPROLOL 50 MG TAB PO SCH ×2 (08:29→21:26)
--- NOTE | 2018-09-17 08:56 | NUR ---
PATIENT HAS BEEN SCREENED AND CATEGORIZED MODERATE NUTRITION RISK. PATIENT WILL BE SEEN WITHIN 3-5 DAYS OF ADMISSION. 09/19/18-09/21/[address]
[2018-09-17] MEDS ORDERED: TRIAMTERENE 50 MG CAP PO SCH (09:00)
--- NOTE | 2018-09-17 09:23 | NUR ---
PT REQUESTED TO BE PLACED ON BEDSIDE COMMODE. HELPED ASSIST PT ON BEDSIDE COMMODE AND ADMINISTERED MORNING MEDICATIONS. ASSESSED PT BLOOD GLUCOSE. [address] PATEL GAVE 10 UNIT HUMALOG AND 35 UNITS LANTUS Addendum: 09/17/18 at 1113 by Cami Balderrama RN WRONG PT
--- NOTE | 2018-09-17 10:20 | NUR ---
REASSESSED PTS BLOOD GLUCOSE [address] IBARRA PLACED PT ON CLEAR LIQUID DIET REQUESTED FOR CONSULT AND STAT ABG ALSO DELAYED DISCHARGE TIL 1600 PENDING PTS BLOOD SUGAR LEVEL Addendum: 09/17/18 at 1113 by Cami Balderrama RN WRONG PT
--- NOTE | 2018-09-17 12:30 | NUR ---
Bladders scan completed. Asked pt to void prior to scan, pt refused & states he doesn't need to go. 64ml bladder contents present. No bladder distention noted.
--- NOTE | 2018-09-17 14:09 | NUR ---
CM NOTE RECEIVED ORDER FOR HIGH RISK FOLLOW UP WITH [facility]. NO DISCHARGE ORDER AT THIS TIME. I SPOKE WITH [facility] # [phone] TO SET UP PATIENT'S OUTPATIENT FOLLOW UP APPOINTMENT ON SEPTEMBER 21, 2018 2:[address] JOSE RAFAEL BALDWIN AT [address] [place], [place] [phone]. I GAVE THE PATIENT HIS HIGH RISK OUTPATIENT FOLLOW UP SCHEDULE.
--- NOTE | 2018-09-17 14:15 | NUR ---
CM NOTE FAXED ORDER FOR HIGH RISK FOLLOW UP WITH [facility] AND ORDER FOR HOME HEALTH WITH [facility] TO [facility]. [facility] CM EMMIE AWARE. FAXED ORDER FOR HOME HEALTH WITH [facility] FOR TRANSITIONAL CARE MANAGEMENT AND CLINICAL PACKET TO [facility].
--- NOTE | 2018-09-17 15:23 | NUR ---
CM NOTE I SPOKE WITH THE PATIENT BEDSIDE TO CONFIRM HIS ADDRESS. PER PATIENT HE LIVES IN [place] BUT HE WILL BE STAYING POST DISCHARGE WITH HIS SISTER ROLO STARKS AT HER HOUSE AT [address] [id number] UNTIL HE RECOVERS. I SPOKE WITH THE PATIENT'S SISTER KENDALL STARKS WHO CONFIRMED THAT THE PATIENT WILL BE STAYING AT HER HOUSE POST DISCHARGE. I GAVE CHLOE OF [facility] TRANSITIONAL CARE MANAGEMENT THE ADDRESS WHERE THE PATIENT STATED HE WILL BE STAYING POST DISCHARGE AND PER CHLOE # [phone] THEY ARE ACCEPTING THE PATIENT AND WILL HAVE A NURSE TO SEE THE PATIENT WHEN DISCHARGED.
--- NOTE | 2018-09-17 17:19 | NUR ---
PT MOVED TO BED 120B ALL BELONGINGS WITH THE PATIENT. PT IS STABLE AND COMFORTABLE WITH NO COMPLAINTS OF PAIN. WILL CONTINUE TO MONITOR.
--- NOTE | 2018-09-17 19:18 | NUR ---
ENDORSED RESIDENT DOCTOR NURSE. PT RESTING COMFORTABLY IN BED. NO SIGNS OF DISTRESS. ALL SAFETY MEASURES IN PLACE
--- NOTE | 2018-09-17 19:40 | NUR ---
RECEIVED ENDORSEMENT FROM AM SHIFT RN; PATIENT A/Ox4, ABLE TO MAKE NEEDS KNOWN. INTRODUCED SELF, UPDATED BOARD. PATIENT IS AMBULATORY. NO SOB OR DISTRESS NOTED, ON ROOM AIR. IV SITE ON RIGHT ANTECUBITAL, 20 GAUGE, SALINE LOCKED. SKIN TEAR NOTED ON RIGHT LEG, HAS A WOUND EVAL SCHEDULED FOR 09/18/2018. BED IN THE LOWEST POSITION, CALL LIGHT WITHIN REACH. INITIAL ASSESSMENT DONE. WILL CONTINUE TO MONITOR.
--- NOTE | 2018-09-17 20:30 | NUR ---
VITALS TAKEN, DUE MEDS GIVEN. NO DISTRESS NOTED.
[2018-09-17] MEDS ORDERED: SIMVASTATIN 40 MG TAB PO SCH (21:00)
[2018-09-17] MEDS ORDERED: INSULIN LANTUS 100 UNITS/ML 10 ML VIAL SUBQ SCH ×2 (21:00)
--- NOTE | 2018-09-17 23:20 | NUR ---
VITALS TAKEN, PATIENT ASLEEP, VISIBLE CHEST RISE AND FALL NOTED.
[2018-09-18] VITALS: BP 139/67
--- NOTE | 2018-09-18 02:05 | NUR ---
FREQUENT CHECKS MADE, NO DISTRESS NOTED.
--- NOTE | 2018-09-18 03:50 | NUR ---
VITALS TAKEN, PATIENT ASLEEP, NO DISTRESS NOTED.
[2018-09-18 04:00] VITALS: BP 155/68
--- NOTE | 2018-09-18 06:30 | NUR ---
BLOOD SUGAR CHECK DONE; BS AT 76. GAVE ORANGE JUICE. WILL CONTINUE TO MONITOR.
[2018-09-18] MEDS: BLOOD GLUCOSE MONITORING 1 DEV DEV FS SCH ×2 (06:45→11:30)
--- NOTE | 2018-09-18 07:25 | NUR ---
ENDORSED PATIENT TO AM SHIFT RN; PATIENT IN STABLE CONDITION.
--- NOTE | 2018-09-18 07:26 | NUR ---
RECEIVED REPORT FROM ENGINEER EXHAUSTER NURSE. PATIENT LYING DOWN IN BED SLEEPING, AROUSABLE BY VOICE. NO DISTRESS NOTED. DENIES ANY PAIN. AAOX4, CALM, COOPERATIVE, SKIN COLOR APPROPRIATE TO ETHNICITY, WARM TO TOUCH. HAS RIGHT LE SKIN TEAR, DRESSING DRY AND INTACT. RESPIRATIONS EVEN, UNLABORED, ON ROOM AIR. IV SITE INTACT, PATENT, AND INFUSING IVF PER MD ORDERS. REVIEWED PLAN OF CARE WITH PATIENT. PATIENT VERBALIZED UNDERSTANDING. SAFETY MEASURES IN PLACE, CALL LIGHT WITHIN REACH. WILL CONTINUE TO MONITOR.
[2018-09-18 07:37] LABS: BASOPHILS # (AUTO) 0.1 K/uL (0.00-0.22); BASOPHILS % (AUTO) 0.8 % (0.0-2.0); EOSINOPHILS # (AUTO) 0.2 K/uL (0-0.4); EOSINOPHILS % (AUTO) 3.1 % (0.0-4.0); HEMATOCRIT 31.2 % (36-52); HEMOGLOBIN 10.5 g/dL (12.0-18.0); LYMPHOCYTES # (AUTO) 1.4 K/uL (2.0-11.5); LYMPHOCYTES % (AUTO) 20.2 % (20.5-51.1); MEAN CORPUSCULAR HEMOGLOBIN 28 pg (27-31); MEAN CORPUSCULAR HGB CONC 34 g/dL (33-37); MEAN CORPUSCULAR VOLUME 84.2 fL (80-94); MONOCYTES # (AUTO) 0.4 K/uL (0.8-1.0); MONOCYTES % (AUTO) 6.3 % (1.7-9.3); NEUTROPHILS # (AUTO) 4.7 K/uL (1.8-7.7); NEUTROPHILS % (AUTO) 69.6 % (42.2-75.2); PLATELET COUNT (AUTO) 463 K/uL (140-450); RED CELL DISTRIBUTION WIDTH 13.1 % (11.6-13.7); WHITE BLOOD COUNT (AUTO) 6.8 K/uL (4.8-10.8)
[2018-09-18 07:52] LABS: PHOSPHORUS 4.1 mg/dL (2.5-4.9)
[2018-09-18 07:56] LABS: ALBUMIN 1.9 g/dL (3.4-5.0); ANION GAP 12.5 (8-16); CARBON DIOXIDE 28.6 mmol/L (21-32); CREATININE 1.9 mg/dL (0.7-1.3); POTASSIUM 3.1 mmol/L (3.5-5.1); TOTAL BILIRUBIN 0.2 mg/dL (0.0-1.0)
[2018-09-18 08:00] VITALS: BP 166/76
[2018-09-18] MEDS: BENAZEPRIL 20 MG TAB PO SCH (09:07)
[2018-09-18] MEDS: METOPROLOL 50 MG TAB PO SCH (09:07)
[2018-09-18] MEDS: DOCUSATE SODIUM 100 MG GELCAP PO SCH (09:07)
[2018-09-18] MEDS: TAMSULOSIN 0.4 MG CAP PO SCH (09:07)
[2018-09-18] MEDS: FUROSEMIDE 100 MG/10 ML VIAL IV SCH (09:08)
--- NOTE | 2018-09-18 09:21 | NUR ---
PATIENT SITTING IN BED WATCHING TV. NO DISTRESS NOTED. DENIES ANY PAIN. SCHEDULED MEDICATIONS DUE GIVEN. WILL CONTINUE TO MONITOR.
[2018-09-18] MEDS ORDERED: GLIP10TA3 PO (09:56)
[2018-09-18] MEDS ORDERED: METO25TA PO (09:56)
[2018-09-18] MEDS ORDERED: APID SUBQ (09:56)
[2018-09-18] MEDS ORDERED: TAMS0.4C96 PO (09:56)
[2018-09-18] MEDS ORDERED: POTA10TE30 PO (10:02)
[2018-09-18] MEDS ORDERED: AMLO5TAB PO (10:02)
[2018-09-18] MEDS ORDERED: amLODIPine 5 MG TAB PO SCH (10:30)
[2018-09-18] MEDS ORDERED: POTASSIUM CHLORIDE 10 MEQ TABER PO SCH (10:30)
--- NOTE | 2018-09-18 11:00 | NUR ---
WOUND CARE NURSE AT BEDSIDE PERFORM RLE WOUND EVALUATION. WILL CONTINUE TO MONITOR.
--- NOTE | 2018-09-18 11:35 | NUR ---
FREDDY CORONA PH# [phone] OF [facility] TRANSITIONAL CARE MANAGEMENT MADE AWARE OF THE DISCHARGE ORDER TODAY. Addendum: 09/18/18 at 1504 by Nanette Harris CM CORRECTION GABRIELLA PH# [phone] OF [facility] TRANSITIONAL CARE MANAGEMENT MADE AWARE OF THE DISCHARGE ORDER TODAY.
[2018-09-18 12:00] VITALS: BP 155/76
--- NOTE | 2018-09-18 12:00 | NUR ---
PATIENT'S BLOOD GLUCOSE 402, DR. DENNY STEWART. PER DR. BALDWIN GIVE 10 UNITS HUMALOG. WILL CONTINUE TO MONITOR.
--- NOTE | 2018-09-18 12:05 | NUR ---
WOUND CARE EVALUATION NOTE: REASON FOR EVALUATION: RLE WOUND SKIN ASSESSMENT DONE TO THIS 68 Y/O MALE WITH HX OF CHRONIC UN-HEALED WOUND TO BLE, PER PT. NO REGULAR FOLLOW UP WITH HIS PRIMARY PHYSICIAN, PT. REFUSED TO BE CHECK FROM HEAD TO TOE, ONLY LIKE TO BE CHECKED ON THE RIGHT/LEFT LOWER LEG. INTEGUMENTARY: -RIGHT LE TO MEDIAL MANASA-ANKLE WITH VASCULAR ULCER , 7X7X0.1, WOUND BED DARK RED, WEEPING SKIN, NO ODOR, MANASA-WOUND SKIN DRY, NO PAIN. -LEFT LE XEROSIS -MULTIPLE SCABS TO UPPER AND LOWER EXTREMITIES RECOMMENDATIONS: -CLEANSE RIGHT LE VASCULAR ULCER WITH NS. PAT DRY, APPLY ADAPTIC DRESSING AND WRAP WITH KERLIX ROLLS QD AND PRN IS SOILING -OFFLOAD BILATERAL HEELS BY PLACING PILLOWS UNDER CALVES UNLESS OTHERWISE CONTRAINDICATED -TURN AND REPOSITION Q2H, OFFLOAD SACRALCOCCYX BY TURNING RIGHT AND LEFT -MONITOR SKIN CONDITION EACH TIME PT IS REPOSITIONS -CONTINUE TO FOLLOW RD RECOMMENDATIONS ALL ABOVE RECOMMENDATIONS DISCUSSED WITH PRIMARY RN WILL FOLLOW UP PT Q7-10 DAYS. PLEASE CONTACT WOUND CARE NURSE FOR ANY QUESTION AND CHANGE OF WOUND CONDITION.
[2018-09-18] MEDS: INSULIN LISPRO SLIDING SCALE 100 UNITS/ML VIAL SUBQ PRN (13:06)
--- NOTE | 2018-09-18 13:54 | NUR ---
PATIENT LYING DOWN IN BED WATCHING TV. NO DISTRESS NOTED. CONDITION UNCHANGED. WILL CONTINUE TO MONITOR.
--- NOTE | 2018-09-18 14:52 | NUR ---
DISCHARGE INSTRUCTIONS PROVIDED TO PATIENT IN PREFERRED LANGUAGE OF IVORIAN. INSTRUCTIONS ON FOLLOW-UP VISIT WITH DR. BALDWIN, AND DR. JASSO, NEW/CHANGED MEDICATION REGIMEN, DIET REGIMEN, AND DISEASE PROCESS/MANAGEMENT OF ANASARCA. ANSWERED ALL OF PATIENT'S QUESTIONS REGARDING DISCHARGE. PATIENT VERBALIZED COMPLETE UNDERSTANDING. ALL BELONGINGS AND PRESCRIPTIONS GIVEN TO PATIENT. AWAITING FOR PATIENT'S SISTER WHO IS ON HER WAY TO TAKE PATIENT HOME. WILL CONTINUE TO MONITOR.
--- NOTE | 2018-09-18 16:00 | NUR ---
SISTER ON UNIT READY TO TAKE PATIENT HOME. ID BANDS REMOVED. IV SITE REMOVED WITH MINIMAL BLOOD AND LUMEN COMPLETELY INTACT. ESCORTED PATIENT DOWN TO LOBBY VIA STEADY AMBULATION. PATIENT DISCHARGED TO HOME WITH HOME HEALTH AT THIS TIME.
[2018-09-19] MEDS ORDERED: FUROSEMIDE 40 MG TAB PO SCH (09:00)
[2018-09-19] MEDS ORDERED: GAUZE TP SCH (13:00)
== END 2018-09-18 16:00 | disposition home health service (06) | DRG 291 ==
LOC: MED 11:00 → MTU 14:06
PROVIDERS: ADMIT Hospitalist; ATTEND Hospitalist
DX: I13.0 Hypertensive heart and chronic kidney disease with heart failure and stage 1 through stage 4 chronic kidney disease, or unspecified chronic kidney disease (principal); I50.33 Acute on chronic diastolic (congestive) heart failure; N04.9 Nephrotic syndrome with unspecified morphologic changes; E44.0 Moderate protein-calorie malnutrition; L97.809 Non-pressure chronic ulcer of other part of unspecified lower leg with unspecified severity; E44.1 Mild protein-calorie malnutrition; E87.70 Fluid overload, unspecified; I16.0 Hypertensive urgency; N18.3 Chronic kidney disease, stage 3 (moderate); D64.9 Anemia, unspecified; E11.22 Type 2 diabetes mellitus with diabetic chronic kidney disease; E11.42 Type 2 diabetes mellitus with diabetic polyneuropathy; E11.65 Type 2 diabetes mellitus with hyperglycemia; E78.5 Hyperlipidemia, unspecified; D63.8 Anemia in other chronic diseases classified elsewhere; N40.0 Benign prostatic hyperplasia without lower urinary tract symptoms; I83.008 Varicose veins of unspecified lower extremity with ulcer other part of lower leg; Z68.24 Body mass index [BMI] 24.0-24.9, adult
CPT/HCPCS: 36415; 71045; 80053; 82948; 83036; 83735; 83880; 84100; 84484; 85025; 87081; 93005; 96374; 96375; 99285; J0360; J1644; J1815; J1940; Q0092

== ENCOUNTER 2019-03-12 07:34 | Inpatient (IN) | payer OTHER ==
[~2019-03-12] VITALS: Ht 170.2 cm; Wt 72.6 kg
[~2019-03-12 07:34] MED LIST: AMLO5TAB PO; APID SUBQ; BENA40TA PO; DYR50 PO; GLIP10TA3 PO; METO25TA PO; POTA10TE30 PO; SIMV40TA1 PO; TAMS0.4C96 PO
[2019-03-12 07:42] VITALS: BP 216/89
--- NOTE | 2019-03-12 07:54 | NUR ---
PT AAOXPT BIB SELF WITH C/O SOB, GEN ABD PAIN X 1 DAY. DENIES N/V. DENIES CHILLS OR FEVER AT THIS TIME. NO DISTRESS NOTED. PT CONNECTED TO THE MONITOR , O2 SAT 100% ON RA. PT HAS HX OF BP, DM, HIGH CHOLESTROL AND THINKS MIGHT HAVE THE COPD. HAS HIGH BP 206/91 AT THIS TIME, NO BP MEDS TAKEN AT HOME. BREATHING NORMAL AND NON-LABORED. NO USE OF THE ACCESSORY MUSCLE . PT HAS SKIN DISCOLORATION BLE , BELOW THE KNEE, HAS SKIN TEAR ON THE RT LEG AT SHAFT. SWELLING +1. DENIES ANY PAIN AT THIS TIME. PT AAOX4, ABLE TO AMKE HIS NEEDS KNOWN , COMMUNICATES PROEPRLY. ER MD TO SEE THE PT. WILL CONTNUE TO MONITOR PT. HX-- CHF, DM, BP NKA
[2019-03-12] MEDS ORDERED: FURO-570 PO (08:06)
[2019-03-12] MEDS ORDERED: GABA300C PO (08:06)
[2019-03-12] MEDS ORDERED: TRAM50TA1 PO (08:06)
[2019-03-12] MEDS ORDERED: ASPIRIN 81 MG TAB.CHEW PO ONE (08:35)
[2019-03-12] MEDS ORDERED: FUROSEMIDE 20 MG/2 ML VIAL IVP ONE (08:35)
[2019-03-12 08:38] LABS: BASOPHILS # (AUTO) 0.1 K/uL (0.00-0.22); BASOPHILS % (AUTO) 0.7 % (0.0-2.0); EOSINOPHILS # (AUTO) 0.2 K/uL (0-0.4); EOSINOPHILS % (AUTO) 2.1 % (0.0-4.0); HEMOGLOBIN 7.7 g/dL (12.0-18.0); LYMPHOCYTES # (AUTO) 0.8 K/uL (2.0-11.5); LYMPHOCYTES % (AUTO) 10.2 % (20.5-51.1); MEAN CORPUSCULAR HEMOGLOBIN 28 pg (27-31); MEAN CORPUSCULAR HGB CONC 33 g/dL (33-37); MEAN CORPUSCULAR VOLUME 84.7 fL (80-94); MONOCYTES # (AUTO) 0.6 K/uL (0.8-1.0); MONOCYTES % (AUTO) 7.2 % (1.7-9.3); NEUTROPHILS # (AUTO) 6.4 K/uL (1.8-7.7); NEUTROPHILS % (AUTO) 79.8 % (42.2-75.2); PLATELET COUNT (AUTO) 274 K/uL (140-450); RED BLOOD CELL COUNT(AUTO) 2.72 MIL/uL (4.20-6.10); RED CELL DISTRIBUTION WIDTH 14.4 % (11.6-13.7)
[2019-03-12] MEDS ORDERED: NITROGLYCERIN 2% 1 GM PKT TP ONE (08:40)
[2019-03-12 09:14] LABS: ALBUMIN 2.9 g/dL (3.4-5.0); ANION GAP 17.6 (8-16); CARBON DIOXIDE 20.8 mmol/L (21-32); CREATININE 3.2 mg/dL (0.7-1.3); POTASSIUM 4.4 mmol/L (3.5-5.1); TOTAL BILIRUBIN 0.4 mg/dL (0.0-1.0)
[2019-03-12] MEDS ORDERED: MORPHINE SULFATE 4 MG/ML SYR IVP ONE (09:45)
--- NOTE | 2019-03-12 09:54 | NUR ---
AT THE BEDSIDE DOING ABD US. YARD RIGGER TO DRAW THE BLADDER. WILL CONTINUE TO MONITOR PT.
[2019-03-12] MEDS ORDERED: amLODIPine 5 MG TAB PO ONE (10:05)
--- NOTE | 2019-03-12 10:30 | NUR ---
PT LAYING ACROSS THE BED. STATES PRESSURE AGAINST THE BED IN HIS STOMACH HELPS WITH HIS PAIN AND MAKES HIM COMFORTABLE. MD NOTIFIED AND OKAY WITH IT. INFORMED PT TO LET KNOW IF WANTS TO GO BACK TO BED. VERBALISED UNDERSTANDING. WILL CONTINUE TO MONITOR PT.
--- NOTE | 2019-03-12 11:15 | NUR ---
PIPE BLANKS CUT OFF SAW OPERATOR IN TELE , STATES SEWING MACHINE OPERATOR ZIPPER NURSE IS AT UNIT AND PT CAN BE TAKEN TO FLOOR.
--- NOTE | 2019-03-12 11:35 | NUR ---
Admitted from ER , with chief complaint of SOB, ABDOMINAL PAIN , 68 y/o ,Male, Appropriate, AAOX4, NO S/S OF ACUTE DISTRESS. PT DENIES PAIN, IV SITE PATENT AND INTACT. CALL LIGHT WITHIN REACH. PT oriented to call light, bed, phone,television, bathroom, smoking policy, visiting hours, procedures, ID bracelet on. Belongings list checked. SAFETY MEASURES ENSURED. WILL CONTINUE TO MONITOR.
--- NOTE | 2019-03-12 11:35 | NUR ---
Patient will be admitted to care of DR. POLK. Admited to [facility]ST FLOOR. Will go to room 119 A. Belongings list completed. Report to LUIS BOSS. PT STABLE WHILE DISCHARGED. FAMILY AT THE BEDSIDE.
[2019-03-12 13:01] VITALS: BP 202/83
[2019-03-12] MEDS ORDERED: ALBUTEROL SULFATE/IPRATROPIU 3 ML SOL IH PRN (13:05)
[2019-03-12] MEDS ORDERED: hydrALAZINE 20 MG/ML VIAL IVP PRN (13:30)
[2019-03-12] MEDS ORDERED: METOPROLOL 25 MG TAB PO SCH (13:30)
[2019-03-12] MEDS ORDERED: BENAZEPRIL 20 MG TAB PO SCH (14:00)
--- NOTE | 2019-03-12 14:58 | NUR ---
PATIENT HAS BEEN SCREENED AND CATEGORIZED MODERATE NUTRITION RISK. PATIENT WILL BE SEEN WITHIN 3-5 DAYS OF ADMISSION. 03/15/19 03/16/[address]
[2019-03-12] MEDS ORDERED: cloNIDine 0.1 MG TAB PO PRN (15:20)
[2019-03-12 16:10] VITALS: BP 185/90
--- NOTE | 2019-03-12 16:14 | NUR ---
PT RESTING IN BED. NO S/S OF ACUTE DISTRESS. PT DENIES PAIN. CALL LIGHT WITHIN REACH. SAFETY MEASURES ENSURED. WILL CONTINUE TO MONITOR.
[2019-03-12] MEDS ORDERED: FUROSEMIDE 40 MG/4 ML VIAL IVP SCH ×2 (17:00→18:50)
[2019-03-12] MEDS: MORPHINE SULFATE 2 MG/ML SYR IVP PRN ×2 (17:44→22:03)
--- NOTE | 2019-03-12 19:30 | NUR ---
RECEIVED FROM AM RN IN BED SLEEPING. WOKE UP WHEN TOUCHED AND CALLED BY NAME. ABLE TO VERBALIZE NEEDS WELL IN URDU. CALL LIGHT WITH IN REACH. NO SOB. NO COMPLAINTS OF PAIN DONE. BED ALARM ON. IVF SITE INTACT AND NO INFILTRATION . DX. OF ANEMIA AND ACUTE KIDNEY INJURY. DRESSING TO RIGHT LEG INTACT AND NO BLEEDING. FOR BLOOD TRANSFUSION ORDERED. WAITING FOR AVAILABILITY OF BLOOD.
[2019-03-12 20:00] VITALS: BP 176/70
[2019-03-12] MEDS ORDERED: ATORVASTATIN 20 MG TAB PO SCH (21:00)
[2019-03-12] MEDS: BLOOD GLUCOSE MONITORING 1 DEV DEV FS SCH (21:13)
[2019-03-12] MEDS: CARVEDILOL 12.5 MG TAB PO SCH (21:13)
[2019-03-12] MEDS: INSULIN LISPRO SLIDING SCALE 100 UNITS/ML VIAL SUBQ PRN (21:18)
--- NOTE | 2019-03-12 21:29 | NUR ---
PT. AWAKE AND STANDING. ENCOURAGED TO STAY IN BED AND NOT STAND UP UN NECESSARILY. STATED HE IS KIND OF REALLY RESTLESS WHEN IN BED AND THAT HE NEEDS TO STAND UP. BLOOD SUGAR PER FINGERSTICK 317. ADMINISTERED HUMALOG ORDERED. PER AM RN PT.S FAMILY MEMBERS CAME BY THIS DINNER TIME AND HAD A LOT OF SODA AND FOOD FOR HIM. EDUCATED RE: SUGAR , EXTRA FOOD AND HIS DIABETES STATUS. "OK" PLACED BED ALARM ON.
[2019-03-12 21:58] VITALS: BP 172/63
--- NOTE | 2019-03-12 22:10 | NUR ---
MEDICATED WITH MORPHINE IVP 2 MG RT COMPLAINED OF ABDOMINAL PAIN AND OVER ALL PAIN PER PT. ENCOURAGED TO LAY ON BACK AND NOT TO ATTEMPT WALKING AROUND RT WEAK. "OK" URINAL AT BEDSIDE. REMINDED TO URINATE IN URINAL RT WE ARE WATCHING HIS OUT PUT. "OK" BED ALARM ON.
--- NOTE | 2019-03-12 22:35 | NUR ---
PT. SLEEPING AT THIS TIME. BED ALARM ON. CALL LIGHT WITH IN REACH. TELEMETRY MONITORING.
[2019-03-13] VITALS: BP 154/70
--- NOTE | 2019-03-13 00:20 | NUR ---
BLOOD TRANSFUSION ORDERED 1 UNIT INFUSING AT THIS TIME. PT. NO COMPLAINTS. ABLE TO VERBALIZE SIMPLE NEEDS.
--- NOTE | 2019-03-13 00:54 | NUR ---
PT. SLEEPING. NO NOTED ADVERSE REACTIONS TO BLOOD TRANSFUSION ON GOING. CALL LIGHT WITH IN REACH. VITAL SIGNS WITH IN NORMAL LIMITS. TELEMETRY MONITORING. AFEBRILE.
--- NOTE | 2019-03-13 02:24 | NUR ---
PT. SLEEPING. NO COMPLAINTS DONE. NO ADVERSE REACTIONS NOTED TO INFUSING BLOOD TRANSFUSION.
[2019-03-13 02:51] VITALS: BP 180/73
--- NOTE | 2019-03-13 02:54 | NUR ---
DIVINE PT. UP TO RE-POSITION RT BP IS 180/75. INFORMED HIM THAT I AM ADMINISTERING HIM APRESOLINE IVP 10 MG FOR PRN SBP ABOVE 170. "OK" A/O X 4.
--- NOTE | 2019-03-13 03:35 | NUR ---
BLOOD TRANSFUSION DONE. NO COMPLAINT OF ITCHINESS OR SOB. NO NOTED RASHES TO SKIN. CALL LIGHT WITH IN REACH.
[2019-03-13 03:59] VITALS: BP 157/84
[2019-03-13] MEDS: BLOOD GLUCOSE MONITORING 1 DEV DEV FS SCH ×3 (05:36→16:30)
[2019-03-13] MEDS: INSULIN LISPRO SLIDING SCALE 100 UNITS/ML VIAL SUBQ PRN ×3 (05:38→18:52)
--- NOTE | 2019-03-13 07:10 | NUR ---
RECEIVED REPORT FROM CLAIMS ADJUSTOR NURSE NANCY FOR CONTINUITY OF CARE. PT IN STABLE CONDITION. RESPIRATIONS EVEN AND UNLABORED, ROOM AIR. IV INTACT AND PATENT. SAFETY MEASURES IN PLACE. BED IN LOW POSITION. BED ALARM ON. CALL LIGHT AT BEDSIDE. WILL CONTINUE TO MONITOR.
[2019-03-13 08:00] VITALS: BP 172/77
[2019-03-13] MEDS ORDERED: TAMSULOSIN 0.4 MG CAP PO SCH (08:30)
[2019-03-13] MEDS: CARVEDILOL 12.5 MG TAB PO SCH (08:56)
[2019-03-13] MEDS ORDERED: ENOXAPARIN 30 MG/0.3 ML SYR SUBQ SCH (09:00)
[2019-03-13] MEDS ORDERED: SIMVASTATIN 40 MG TAB PO SCH (09:00)
[2019-03-13] MEDS ORDERED: BENAZEPRIL 20 MG TAB PO SCH (09:00)
[2019-03-13] MEDS ORDERED: amLODIPine 5 MG TAB PO SCH ×2 (09:00)
--- NOTE | 2019-03-13 09:00 | NUR ---
HELD ENOXAPARIN WILL CALL GONZALO CALERO TO INFORM PHARMACY RECOMMENDATION TO CHANGE TO HEPARIN SUBQ DUE TO KIDNEY INJURY.
--- NOTE | 2019-03-13 09:39 | NUR ---
ULTRASOUND AT BEDSIDE AT THIS TIME. PT IN STABLE CONDITION.
--- NOTE | 2019-03-13 11:15 | NUR ---
YANDY GUTIERREZ DR. D/C ENOXAPARIN SUBQ, ORDER HEPARIN 5,000 UNITS SUBQ
[2019-03-13 12:00] VITALS: BP 145/88
--- NOTE | 2019-03-13 12:20 | NUR ---
SPOKE WITH CUSTOMS INVESTIGATOR TO DRAW BMP.
--- NOTE | 2019-03-13 13:04 | NUR ---
GAVE PRN PAIN MEDICATION PER PT REQUEST. PT TOLERATED WELL. WILL CONTINUE TO MONITOR. BED IN LOW POSITION. BED ALARM ON. CALL LIGHT AT BEDSIDE.
[2019-03-13] MEDS: MORPHINE SULFATE 2 MG/ML SYR IVP PRN (13:06)
[2019-03-13 14:21] LABS: APPEARANCE,URINE CLEAR (CLEAR); BILIRUBIN,URINE NEGATIVE (NEGATIVE); BLOOD, URINE 2+ (NEGATIVE); COLOR,URINE YELLOW (YELLOW); LEUKOCYTE ESTERASE ,URINE NEGATIVE (NEGATIVE); NITRITE, URINE NEGATIVE (NEGATIVE); UGLUCOSE 1+ (NEGATIVE)
[2019-03-13 14:37] LABS: RBC,URINE 0-5 /HPF (0-5); WBC,URINE NONE SEEN /HPF (0-5)
--- NOTE | 2019-03-13 15:01 | NUR ---
PT LYING IN BED YANDY COTTON AND MARY AGUILERA AT BEDSIDE. PT IN STABLE CONDITION. BED IN LOW POSITION. BED ALARM ON. CALL LIGHT AT BEDSIDE. WILL CONTINUE TO MONITOR.
[2019-03-13 15:36] LABS: BASOPHILS % (AUTO) 0.5 % (0.0-2.0); EOSINOPHILS # (AUTO) 0.2 K/uL (0-0.4); EOSINOPHILS % (AUTO) 2.2 % (0.0-4.0); HEMATOCRIT 24.3 % (36-52); HEMOGLOBIN 8.2 g/dL (12.0-18.0); LYMPHOCYTES # (AUTO) 0.8 K/uL (2.0-11.5); LYMPHOCYTES % (AUTO) 9.5 % (20.5-51.1); MEAN CORPUSCULAR HEMOGLOBIN 28 pg (27-31); MEAN CORPUSCULAR HGB CONC 34 g/dL (33-37); MEAN CORPUSCULAR VOLUME 82.8 fL (80-94); MONOCYTES # (AUTO) 0.6 K/uL (0.8-1.0); NEUTROPHILS % (AUTO) 80.8 % (42.2-75.2); PLATELET COUNT (AUTO) 280 K/uL (140-450); RED BLOOD CELL COUNT(AUTO) 2.93 MIL/uL (4.20-6.10); RED CELL DISTRIBUTION WIDTH 14.1 % (11.6-13.7); WHITE BLOOD COUNT (AUTO) 8.7 K/uL (4.8-10.8)
[2019-03-13 16:00] VITALS: BP 154/84
[2019-03-13 16:00] LABS: ALBUMIN 2.5 g/dL (3.4-5.0); ANION GAP 12.8 (8-16); CARBON DIOXIDE 24.1 mmol/L (21-32); CREATININE 3.2 mg/dL (0.7-1.3); POTASSIUM 3.9 mmol/L (3.5-5.1); TOTAL BILIRUBIN 0.4 mg/dL (0.0-1.0)
--- NOTE | 2019-03-13 17:58 | NUR ---
PT SITTING IN CHAIR EATING AN ORANGE IN STABLE CONDITION. PT IN STABLE CONDITION. CALL LIGHT WITHIN REACH. WILL CONTINUE TO MONITOR.
--- NOTE | 2019-03-13 19:15 | NUR ---
GAVE REPORT TO COSMETICS SUPERVISOR NURSE ZENON FOR CONTINUITY OF CARE. PT IN STABLE CONDITION.
--- NOTE | 2019-03-13 19:30 | NUR ---
PT LEFT VIA WHEELCHAIR W/ SISTER ACCOMPANYING HIM; WENT AND ESCORTED PATIENT TO EXIT
[2019-03-13] MEDS ORDERED: glipiZIDE 10 MG TAB PO SCH (21:00)
--- NOTE | 2019-03-15 10:01 | NUR ---
WOUND CARE CONSULT NOT DONE, PT. DISCHARGED
--- NOTE | 2019-03-16 11:20 | NUR ---
CONTACTED PATIENT'S PCP DR JOSE RAFAEL BALDWIN'S OFFICE AT [phone] FOR POST DC APPOINTMENT. APPOINTMENT SCHEDULED FOR 03/17/19 AT 1245 PM. OFFICE ADDRESS IS [address] [place] [address]. CONTACTED PATIENT AT [phone] REGARDING APPOINTMENT, ABLE TO SPEAK TO PATIENT'S SISTER ROLO STARKS. ABLE TO VERBALIZE UNDERSTANDING.
== END 2019-03-13 19:30 | disposition home or self-care (01) | DRG 682 ==
LOC: MED 07:34 → MTU 10:04
PROVIDERS: ADMIT Internal Medicine; ATTEND Internal Medicine
PROC: 30233N1 Transfusion of Nonautologous Red Blood Cells into Peripheral Vein, Percutaneous Approach (ICD-10-PCS; principal; 2019-03-13)
DX: N17.9 Acute kidney failure, unspecified (principal); J96.00 Acute respiratory failure, unspecified whether with hypoxia or hypercapnia; I13.0 Hypertensive heart and chronic kidney disease with heart failure and stage 1 through stage 4 chronic kidney disease, or unspecified chronic kidney disease; I50.9 Heart failure, unspecified; E11.22 Type 2 diabetes mellitus with diabetic chronic kidney disease; E78.00 Pure hypercholesterolemia, unspecified; D64.9 Anemia, unspecified; N18.9 Chronic kidney disease, unspecified; J44.9 Chronic obstructive pulmonary disease, unspecified; N40.0 Benign prostatic hyperplasia without lower urinary tract symptoms; E78.5 Hyperlipidemia, unspecified; Z79.899 Other long term (current) drug therapy; Z87.891 Personal history of nicotine dependence
CPT/HCPCS: 36415; 71045; 76700; 76770; 80053; 81001; 82728; 82948; 83540; 83880; 84484; 85025; 86886; 86900; 86901; 86920; 87081; 93005; 93970; 96374; 96375; 99285; J0360; J1650; J1940; J2270; J7030; P9016; Q0092

== ENCOUNTER 2019-03-24 16:49 | Inpatient (IN) | payer OTHER ==
[~2019-03-24] VITALS: Ht 170.2 cm; Wt 72.6 kg
[~2019-03-24 16:49] MED LIST changes: -DYR50 PO; +GABA300C PO; -POTA10TE30 PO; +TRAM50TA1 PO
[2019-03-24 16:50] VITALS: BP 168/89
--- NOTE | 2019-03-24 16:50 | NUR ---
PATIENT WHEELCHAIR ASSISTED TO BED 8.
--- NOTE | 2019-03-24 17:04 | NUR ---
DR BRAXTON AT BEDSIDE
[2019-03-24 17:44] LABS: BASOPHILS % (AUTO) 0.5 % (0.0-2.0); EOSINOPHILS # (AUTO) 0.1 K/uL (0-0.4); EOSINOPHILS % (AUTO) 1.4 % (0.0-4.0); HEMATOCRIT 24.7 % (36-52); LYMPHOCYTES # (AUTO) 0.8 K/uL (2.0-11.5); LYMPHOCYTES % (AUTO) 9.4 % (20.5-51.1); MEAN CORPUSCULAR HEMOGLOBIN 28 pg (27-31); MEAN CORPUSCULAR HGB CONC 33 g/dL (33-37); MEAN CORPUSCULAR VOLUME 86.5 fL (80-94); MONOCYTES # (AUTO) 0.8 K/uL (0.8-1.0); MONOCYTES % (AUTO) 8.7 % (1.7-9.3); NEUTROPHILS # (AUTO) 7.2 K/uL (1.8-7.7); PLATELET COUNT (AUTO) 272 K/uL (140-450); RED BLOOD CELL COUNT(AUTO) 2.85 MIL/uL (4.20-6.10); RED CELL DISTRIBUTION WIDTH 14.6 % (11.6-13.7)
[2019-03-24 18:03] LABS: PROTHROMBIN TIME 9.6 secs (10.8-13.4)
[2019-03-24 18:13] LABS: ALBUMIN 2.6 g/dL (3.4-5.0); ANION GAP 13.7 (8-16); CARBON DIOXIDE 22.6 mmol/L (21-32); CREATININE 3.4 mg/dL (0.7-1.3); POTASSIUM 4.3 mmol/L (3.5-5.1); TOTAL BILIRUBIN 0.3 mg/dL (0.0-1.0)
--- NOTE | 2019-03-24 18:18 | NUR ---
PT ARRIVED TO ED W/ WHEELCHAIR C/O STOMACH PAIN AND BIALTERAL LEG SWELLING X TODAY. PT STATES PAIN LEVEL 7/10 AND DESCRIBES IT A SHOOTING PAIN. HEART SOUNDS S1S2 PRESENT, LUNG SOUNDS CLEAR ALL THROUGHOUT. VS STABLE. BS 362. PTS BILATERAL SWELLING TO LOWER LEGS NONPITTING +3. NKA. PMH: CHF, KIDNEY FAILURE, LIVER FAILURE, HTN, DM
--- NOTE | 2019-03-24 19:16 | NUR ---
REPORT GIVEN TO LUIS MANCINI
--- NOTE | 2019-03-24 20:09 | NUR ---
BLOOD GLUCOSE 351MG/DL. NOTIFIED
[2019-03-24] MEDS ORDERED: INSULIN REGULAR, HUMAN 100 UNIT/ML VIAL IVP ONE (20:15)
[2019-03-24] MEDS ORDERED: fentaNYL 0.05 MG/ML VIAL IVP ONE (21:00)
[2019-03-24] MEDS ORDERED: FUROSEMIDE 40 MG/4 ML VIAL IVP ONE (21:15)
[2019-03-24 21:59] VITALS: BP 184/86
--- NOTE | 2019-03-24 21:59 | NUR ---
RECEIVED PATIENT FROM ER NURSE. PATIENT IS AOX3, BREATHING IS UNLABORED AND EVEN, ON ROOM AIR, IV ON LEFT THUMB 22G, SKIN IS DRY AND SCALING ON BLE, URINAL AND COMMODE AT BEDSIDE, CANE AT BEDSIDE, ABLE TO MAKE NEEDS KNOWN, CALL LIGHT WITHIN REACH, BED ON LOW POSITION. WILL CONTINUE TO MONITOR.
--- NOTE | 2019-03-24 21:59 | NUR ---
APatient will be admitted to care of DR. BROOKS . Admited to TELE. Will go to room 105 A. Belongings list completed. Report to LUIS JEROME.
--- NOTE | 2019-03-24 22:45 | NUR ---
PT ABLE TO VOID @300 ML URINE. SPECIMEN COLLECTED FOR UA AND CULTURE. SEND TO LAB. WILL FOLLOW UP RESULT.
[2019-03-24] MEDS ORDERED: DEXTROSE 50% 50 ML SYR IVP PRN (23:45)
[2019-03-24] MEDS ORDERED: hydrALAZINE 20 MG/ML VIAL IVP PRN (23:45)
--- NOTE | 2019-03-24 23:50 | NUR ---
PAGED DR. BROOKS, DR. HINDS POCKET SECRETARY ASSEMBLER FOR ELEVATED BP AND CLARIFICATIONS OF ORDERS. CALLED BACK WITH ORDERS.
[2019-03-25 00:15] VITALS: BP 200/89
[2019-03-25 01:50] LABS: APPEARANCE,URINE CLEAR (CLEAR); BILIRUBIN,URINE NEGATIVE (NEGATIVE); BLOOD, URINE 1+ (NEGATIVE); COLOR,URINE YELLOW (YELLOW); LEUKOCYTE ESTERASE ,URINE NEGATIVE (NEGATIVE); NITRITE, URINE NEGATIVE (NEGATIVE); UGLUCOSE 1+ (NEGATIVE)
--- NOTE | 2019-03-25 02:20 | NUR ---
REASSESSED BP AFTER GIVING HYDRALAZINE 10MG IV PUSH, BP STILL ELEVATED 184/86. CALLED DR. HINDS, CALLED BACK MADE AWARE WITH ORDER.
[2019-03-25] MEDS: cloNIDine 0.1 MG TAB PO PRN ×2 (02:39→11:52)
[2019-03-25 03:30] LABS: HYALINE CASTS, URINE 0-10 /LPF (None Seen); WBC,URINE 0-5 /HPF (0-5)
--- NOTE | 2019-03-25 03:50 | NUR ---
ASSISTED PATIENT TO THE BEDSIDE COMMODE WITH THE ASSISTANCE OF LUIS LOZADA. PATIENT HAD A SMALL SOFT STOOL.
[2019-03-25 04:00] VITALS: BP 155/73
--- NOTE | 2019-03-25 04:20 | NUR ---
REASSESSED PATIENTS BP AFTER GIVING CLONIDINE. BP WAS 155/73. PATIENT IS SLEEPING COMFORTABLY, NO SIGNS OF DISTRESS NOTED, WILL CONTINUE TO MONITOR.
[2019-03-25] MEDS: BLOOD GLUCOSE MONITORING 1 DEV DEV FS SCH ×4 (06:24→21:02)
[2019-03-25] MEDS: INSULIN LISPRO SLIDING SCALE 100 UNITS/ML VIAL SUBQ PRN ×4 (06:25→21:23)
--- NOTE | 2019-03-25 06:25 | NUR ---
BLOOD SUGAR THIS MORNING WAS 270. GAVE 6 UNITS OF HUMALOG SUBQ COVERAGE. WILL CONTINUE TO MONITOR.
[2019-03-25 06:26] LABS: ANION GAP 13.5 (8-16); CARBON DIOXIDE 24.5 mmol/L (21-32); CREATININE 3.5 mg/dL (0.7-1.3)
[2019-03-25 06:40] LABS: BASOPHILS # (AUTO) 0.1 K/uL (0.00-0.22); BASOPHILS % (AUTO) 0.5 % (0.0-2.0); EOSINOPHILS # (AUTO) 0.1 K/uL (0-0.4); EOSINOPHILS % (AUTO) 1.6 % (0.0-4.0); HEMATOCRIT 22.3 % (36-52); HEMOGLOBIN 7.4 g/dL (12.0-18.0); LYMPHOCYTES # (AUTO) 0.8 K/uL (2.0-11.5); LYMPHOCYTES % (AUTO) 8.2 % (20.5-51.1); MEAN CORPUSCULAR HEMOGLOBIN 28 pg (27-31); MEAN CORPUSCULAR HGB CONC 33 g/dL (33-37); MEAN CORPUSCULAR VOLUME 85.8 fL (80-94); MONOCYTES # (AUTO) 0.8 K/uL (0.8-1.0); MONOCYTES % (AUTO) 8.6 % (1.7-9.3); NEUTROPHILS # (AUTO) 7.5 K/uL (1.8-7.7); NEUTROPHILS % (AUTO) 81.1 % (42.2-75.2); PLATELET COUNT (AUTO) 250 K/uL (140-450); RED CELL DISTRIBUTION WIDTH 14.5 % (11.6-13.7); WHITE BLOOD COUNT (AUTO) 9.2 K/uL (4.8-10.8)
--- NOTE | 2019-03-25 07:23 | NUR ---
ENDORSED PT IN STABLE CONDITION TO AM NURSE FOR CONTINUITY OF CARE.
--- NOTE | 2019-03-25 07:35 | NUR ---
RECEIVED PT FROM THREADER OPERATOR NURSE, KIERRA AND QUEENIE, PT IS ASLEEP AND LYING ON THE BED WITH SIDE RAILS UP AND CALL LIGHT WITHIN REACH, IV LINE ON THE LEFT THUMB G. 22 ON SALINE LOCK, PT HAS BILATERAL LEGS EDEMA, BILATERAL LEGS ARE SCALY AND DRY, AND PENIS IS ALSO EDEMATOUS,ON ROOM AIR, RESPIRATION IS EVEN AND NO SIGN OF DISTRESS NOTED. WILL CONTINUE TO MONITOR PT.
--- NOTE | 2019-03-25 07:54 | NUR ---
SPOKE TO DR. BROOKS AND INFORMED OF THE PT'S BUN OF 72 AND CREATININE OF 3.5, DR. BROOKS MADE A VERBAL ORDER TO HAVE A DOYLE CATHETER INSERTION, RENAL ULTRASOUND STAT AND A CHEM 7 AT 1200, TELEPHONE ORDER READ BACK AND VERIFIED, WILL CARRY OUT MD ORDER
[2019-03-25 08:00] VITALS: BP 159/74
--- NOTE | 2019-03-25 08:12 | NUR ---
PATIENT HAS BEEN SCREENED AND CATEGORIZED MODERATE NUTRITION RISK. PATIENT WILL BE SEEN WITHIN 3-5 DAYS OF ADMISSION. 03/27/19 03/29/[address]
--- NOTE | 2019-03-25 08:30 | NUR ---
DOYLE CATHETER INSERTION WAS UNSUCCESSFUL BECAUSE THERE IS RESISTANCE AND PT IS HAVING PAIN AND REFUSED TO HAVE IT INSERTED.
--- NOTE | 2019-03-25 08:49 | NUR ---
PT IS AWAKE AND EATING HIS BREAKFAST, LASIX WAS ADMINISTERED VIA IV PUSH AND PARAMETER CHECKED, WILL MONITOR PT.
[2019-03-25] MEDS ORDERED: FUROSEMIDE 40 MG/4 ML VIAL IVP SCH (09:00)
--- NOTE | 2019-03-25 10:30 | NUR ---
INFORMED DR. BROOKS THAT DOYLE CATHETER WAS NOT INSERTED BECAUSE PT IS IN PAIN AND IS REFUSING TO HAVE AN INSERTION.
--- NOTE | 2019-03-25 11:50 | NUR ---
DR. BROOKS CAME TO PT'S ROOM AND SPOKE AND ASSESSED PT.
--- NOTE | 2019-03-25 11:52 | NUR ---
PT IS AWAKE AND ORAL BP MEDICATION WAS GIVEN AND TOLERATED IT, WILL RE-ASSESS AND MONITOR PT.
[2019-03-25 12:00] VITALS: BP 178/81
[2019-03-25 12:17] LABS: ANION GAP 12.2 (8-16); CARBON DIOXIDE 24.8 mmol/L (21-32); CREATININE 3.4 mg/dL (0.7-1.3)
--- NOTE | 2019-03-25 13:30 | NUR ---
ECHO IS BEING DONE TO PT NOW.
--- NOTE | 2019-03-25 14:38 | NUR ---
PT IS AWAKE AND PARAMETER CHECKED, BP IS 139/66, PULSE IS 70 AND ORAL MEDICATION WAS GIVEN AND PT TOLERATED IT. WILL MONITOR PT.
[2019-03-25] MEDS ORDERED: EPOETIN ALFA 10,000 UNITS/ML VIAL SUBQ SCH (15:00)
[2019-03-25] MEDS ORDERED: NIFEdipine 90 MG TABER PO SCH (15:00)
--- NOTE | 2019-03-25 16:17 | NUR ---
PT IS AWAKE AND ORSL MEDICATION WAS GIVEN, 4 UNITS INSULIN WAS ALSO GIVEN FOR BLOOD GLUCOSE OF 228. WILL MONITOR PT.
[2019-03-25] MEDS: glipiZIDE 5 MG TAB PO SCH (16:18)
[2019-03-25 17:24] VITALS: BP 151/62
--- NOTE | 2019-03-25 19:05 | NUR ---
RECEIVED BEDSIDE REPORT FROM DAY SHIFT NURSE. PATIENT IS AWAKE, ALERT, AND COOPERATIVE. RESPIRATION EVEN UNLABORED ON ROOM AIR. NO DISTRESS NOTED. SKIN IS WARM AND DRY. IV PATENT ANT INTACT. BILATERAL LOWER EXTREMITY AND SCROTUM EDEMA NOTED. PLAN OF CARE WAS DISCUSSED. BED IS AT LOW POSITION. CALL LIGHT WITHIN REACH AND VERBALIZES ITS USE. WILL CONTINUE TO MONITOR.
--- NOTE | 2019-03-25 19:05 | NUR ---
ENDORSED PT TO TELEPHONE REPAIRER NURSE KISSES, FOR CONTINUITY OF CARE.
[2019-03-25 20:00] VITALS: BP 129/56
--- NOTE | 2019-03-25 20:00 | NUR ---
INITIAL ASSESSMENT DONE. VITALS WERE TAKEN. PATIENT IN STABLE CONDITION. ELEVATED BILATERAL LOWER EXTREMITY TO REDUCE SWELLING. WILL CONTINUE TO MONITOR.
--- NOTE | 2019-03-25 20:30 | NUR ---
PATIENT IV INFILTRATED DC NO ACTIVE BLEEDING SEEN. CANNULA TIP INTACT. INSERTED NEW ONE LEFT HAND 24G. TOLERATED IT WELL. WILL CONTINUE TO MONITOR.
[2019-03-25] MEDS: GABAPENTIN 300 MG CAP PO SCH (20:54)
[2019-03-25] MEDS: METOPROLOL 50 MG TAB PO SCH (20:54)
[2019-03-25] MEDS: SIMVASTATIN 40 MG TAB PO SCH (20:54)
[2019-03-25] MEDS: FUROSEMIDE 100 MG/10 ML VIAL IVP SCH (20:56)
[2019-03-25] MEDS: traMADol 50 MG TAB PO SCH (20:57)
--- NOTE | 2019-03-25 21:00 | NUR ---
ALL SCHEDULED MEDS WERE GIVEN PER ORDER. NO ASE NOTED. WILL CONTINUE TO MONITOR.
--- NOTE | 2019-03-25 22:33 | NUR ---
CHECKED ON PATIENT. PATIENT SLEEPING RESPIRATION EVEN UNLABORED ON ROOM AIR. NO DISTRESS NOTED. WILL CONTINUE TO MONITOR.
[2019-03-26] VITALS: BP 146/69
--- NOTE | 2019-03-26 | NUR ---
VITALS WERE TAKEN. PATIENT IN STABLE CONDITION. WILL CONTINUE TO MONITOR.
--- NOTE | 2019-03-26 00:15 | NUR ---
APPT >150. WILL HOLD HEPARIN DRIP FOR AN HOUR PROTOCOL. IS AWARE OF THE RESULT Addendum: 03/26/19 at 0033 by Danilo Abbasi RN WRONG PATIENT
--- NOTE | 2019-03-26 02:59 | NUR ---
HELPED PATIENT GET UP TO USE BEDSIDE COMMODE. PATIENT TOLERATED IT WELL. WILL CONTINUE TO MONITOR.
[2019-03-26 04:00] VITALS: BP 134/62
--- NOTE | 2019-03-26 04:00 | NUR ---
VITALS WERE TAKEN. PATIENT IN STABLE CONDITION. WILL CONTINUE TO MONITOR.
[2019-03-26] MEDS: FUROSEMIDE 100 MG/10 ML VIAL IVP SCH (04:42)
[2019-03-26] MEDS: BLOOD GLUCOSE MONITORING 1 DEV DEV FS SCH ×4 (06:25→20:43)
[2019-03-26] MEDS: glipiZIDE 5 MG TAB PO SCH ×2 (06:30→16:27)
[2019-03-26] MEDS: INSULIN LISPRO SLIDING SCALE 100 UNITS/ML VIAL SUBQ PRN ×4 (06:31→21:33)
[2019-03-26 06:37] LABS: BASOPHILS % (AUTO) 0.5 % (0.0-2.0); EOSINOPHILS # (AUTO) 0.3 K/uL (0-0.4); EOSINOPHILS % (AUTO) 3.1 % (0.0-4.0); HEMATOCRIT 21.1 % (36-52); LYMPHOCYTES # (AUTO) 0.9 K/uL (2.0-11.5); LYMPHOCYTES % (AUTO) 10.8 % (20.5-51.1); MEAN CORPUSCULAR HEMOGLOBIN 28 pg (27-31); MEAN CORPUSCULAR HGB CONC 32 g/dL (33-37); MEAN CORPUSCULAR VOLUME 86.2 fL (80-94); MONOCYTES # (AUTO) 0.7 K/uL (0.8-1.0); MONOCYTES % (AUTO) 8.3 % (1.7-9.3); NEUTROPHILS # (AUTO) 6.8 K/uL (1.8-7.7); NEUTROPHILS % (AUTO) 77.3 % (42.2-75.2); PLATELET COUNT (AUTO) 232 K/uL (140-450); RED BLOOD CELL COUNT(AUTO) 2.45 MIL/uL (4.20-6.10); RED CELL DISTRIBUTION WIDTH 15.1 % (11.6-13.7); WHITE BLOOD COUNT (AUTO) 8.8 K/uL (4.8-10.8)
--- NOTE | 2019-03-26 07:20 | NUR ---
ENDORSED PATIENT TO DAY SHIFT NURSE. PATIENT IN STABLE CONDITION
[2019-03-26 07:22] LABS: ANION GAP 12.4 (8-16); CARBON DIOXIDE 25.7 mmol/L (21-32); CREATININE 3.8 mg/dL (0.7-1.3); POTASSIUM 4.1 mmol/L (3.5-5.1); TOTAL BILIRUBIN 0.1 mg/dL (0.0-1.0)
--- NOTE | 2019-03-26 07:25 | NUR ---
RECEIVED PT FROM UNIVERSAL WORKER ASSISTED LIVING NURSE, KIKE, PT IS AWAKE AND SEATED ON THE BED WITH SIDE RAILS UP AND CALL LIGHT WITHIN REACH, IV LINE ON THE RT HAND G. 24 ON SALINE LOCK, PT IS ON ROOM AIR NO SOB NOTED, AND DENIES PAIN. WILL CONTINUE TO MONITOR PT.
[2019-03-26 07:34] LABS: PHOSPHORUS 5.2 mg/dL (2.5-4.9)
[2019-03-26 08:00] VITALS: BP 137/67
--- NOTE | 2019-03-26 08:18 | NUR ---
PAGED DR. BROOKS TO INFORM REGARDING THE PT'S CRITICAL LAB VALUE OF BUN IS 77 AND CREATININE IS 3.8, AND HEMOGLOBIN OF 6.8, AWAITING FOR MD CALL BACK.
[2019-03-26 08:19] LABS: HEMOGLOBIN 6.8 g/dL (12.0-18.0)
--- NOTE | 2019-03-26 08:22 | NUR ---
SPOKE TO DR. BROOKS AND HE MADE A TELEPHONE ORDER TO GIVE PT 2 UNITS OF PRBC, TYPE AND SCREEN AND CBC AFTER THE TRANSFUSION, ORDERS READ BACK AND VERIFIED AND WILL CARRY OUT ORDER.
[2019-03-26] MEDS: TAMSULOSIN 0.4 MG CAP PO SCH (08:44)
[2019-03-26] MEDS: traMADol 50 MG TAB PO SCH ×2 (08:46→20:45)
[2019-03-26] MEDS: GABAPENTIN 300 MG CAP PO SCH ×2 (08:46→20:43)
[2019-03-26] MEDS: NIFEdipine 90 MG TABER PO SCH (08:47)
[2019-03-26] MEDS: METOPROLOL 50 MG TAB PO SCH ×2 (08:47→20:44)
--- NOTE | 2019-03-26 08:47 | NUR ---
PT IS AWAKE AND PARAMETER CHECKED, BP IS 138/67, PULSE IS 70 ON MANUAL CHECK, ORAL MEDICATIONS WERE GIVEN AND TOLERATED IT. WILL MONITOR PT.
[2019-03-26] MEDS ORDERED: amLODIPine 5 MG TAB PO SCH (09:00)
--- NOTE | 2019-03-26 09:10 | NUR ---
PT EVALUATION IS BEING DONE TO PT NOW, PT WAS SEEN AMBULATING FROM BED TO BATHROOM AND BACK TO BED, NO SOB NOTED. WILL MONITOR PT.
[2019-03-26] MEDS: IRON SUCROSE COMPLEX 100 MG/5 ML VIAL IVP SCH (11:21)
--- NOTE | 2019-03-26 11:21 | NUR ---
PT IS AWAKE AND INSULIN 4 UNITS GIVEN ON THE LEFT UA FOR BLOOD GLUCOSE RESULT OF 240 AND IV PUSH MEDICATION WAS GIVEN WELL. WILL MONITOR PT.
[2019-03-26 12:00] VITALS: BP 115/54
--- NOTE | 2019-03-26 15:53 | NUR ---
CONTACTED PATIENT'S PCP DR. JOSE RAFAEL BALDWIN AT [phone], ABLE TO SPEAK TO JOSE REGARDING POST DISCHARGE APPOINTMENT. SHE PROVIDED ME WITH APR 01, 2019 AT 1445 PM. COPY PROVIDED TO THE PATIENT.
[2019-03-26 16:00] VITALS: BP 112/58
--- NOTE | 2019-03-26 19:05 | NUR ---
ENDORSED PT TO UNIFORM CAP OPERATOR NURSE LISS FOR CONTINUITY OF CARE.
--- NOTE | 2019-03-26 19:10 | NUR ---
RECEIVED BEDSIDE REPORT FROM AM SHIFT LUIS HAHN, FOR PT'S CONTINUITY OF CARE. PT IS AAOX4, IS ON INVESTIGATION OFFICER, IS ON ROOM AIR, HAS RIGHT HAND 22G INFUSING WITH BLOOD (1ST UNIT) AND RIGHT HAND 24G SALINE LOCK, AND DENIES ANY PAIN AT THIS TIME. EXPLAINED TO PT OXYGRAPH OPERATOR ROUTINE, PT VERBALIZED UNDERSTANDING. BED IS ON LOW POSITION, SIDE RAILS ARE UP, AND CALL LIGHT IS WITHIN REACH. WILL MONITOR PT THROUGHOUT SHIFT.
[2019-03-26 20:00] VITALS: BP 117/64
--- NOTE | 2019-03-26 20:05 | NUR ---
VS CHECKED AND CHARTED. BLOOD GLUCOSE CHECKED AND CHARTED. ADMINISTERED 2ND UNIT OF BLOOD, VERIFIED WITH BROADCAST CHIEF ENGINEER FAIRY. PT DENIES ANY REACTIONS FROM THE FIRST UNIT. BLOOD TRANSFUSION PROTOCOL IN PLACE. WILL CONTINUE TO MONITOR PT.
[2019-03-26] MEDS: SIMVASTATIN 40 MG TAB PO SCH (20:43)
[2019-03-26] MEDS: FUROSEMIDE 40 MG/4 ML VIAL IVP SCH (20:44)
--- NOTE | 2019-03-26 20:45 | NUR ---
ADMINISTERED SCHEDULED PO AND IV PUSH MEDICATIONS ORDERED. PT TOLERATED THEM WELL. WILL CONTINUE TO MONITOR PT.
--- NOTE | 2019-03-26 21:30 | NUR ---
ADMINISTERED SUBQ INSULIN PER SLIDING SCALE ORDER. PT TOLERATED IT WELL.
--- NOTE | 2019-03-26 23:05 | NUR ---
BLOOD TRANSFUSION 2ND UNIT ENDED. VS ARE CHECKED AND CHARTED. PT DENIES ANY PAIN OR REACTION FROM 2ND UNIT. WILL CONTINUE TO MONITOR PT.
[2019-03-27] VITALS: BP 129/66
--- NOTE | 2019-03-27 02:00 | NUR ---
MADE ROUNDS. PT LYING DOWN ASLEEP WITH NO SIGNS OF DISTRESS. WILL CONTINUE TO MONITOR PT.
[2019-03-27 04:00] VITALS: BP 138/69
--- NOTE | 2019-03-27 04:15 | NUR ---
VS CHECKED AND CHARTED. PT WOKE UP AND DENIES PAIN AT THIS TIME. WILL CONTINUE TO MONITOR PT.
[2019-03-27] MEDS: BLOOD GLUCOSE MONITORING 1 DEV DEV FS SCH ×4 (06:22→20:38)
[2019-03-27 06:42] LABS: BASOPHILS % (AUTO) 0.5 % (0.0-2.0); EOSINOPHILS # (AUTO) 0.3 K/uL (0-0.4); EOSINOPHILS % (AUTO) 3.6 % (0.0-4.0); HEMATOCRIT 30.3 % (36-52); LYMPHOCYTES # (AUTO) 1.2 K/uL (2.0-11.5); LYMPHOCYTES % (AUTO) 13.6 % (20.5-51.1); MEAN CORPUSCULAR HEMOGLOBIN 28 pg (27-31); MEAN CORPUSCULAR HGB CONC 33 g/dL (33-37); MEAN CORPUSCULAR VOLUME 84.5 fL (80-94); MONOCYTES # (AUTO) 0.9 K/uL (0.8-1.0); MONOCYTES % (AUTO) 10.1 % (1.7-9.3); NEUTROPHILS # (AUTO) 6.1 K/uL (1.8-7.7); NEUTROPHILS % (AUTO) 72.2 % (42.2-75.2); PLATELET COUNT (AUTO) 247 K/uL (140-450); RED BLOOD CELL COUNT(AUTO) 3.59 MIL/uL (4.20-6.10); WHITE BLOOD COUNT (AUTO) 8.5 K/uL (4.8-10.8)
[2019-03-27] MEDS: glipiZIDE 5 MG TAB PO SCH ×2 (06:42→16:20)
--- NOTE | 2019-03-27 06:43 | NUR ---
BLOOD GLUCOSE CHECKED AND CHARTED. NO COVERAGE NEEDED. ADMINISTERED SCHEDULED PO MEDICATION ORDERED. PT DENIES ANY PAIN AND IS COMFORTABLE AT THIS TIME. WILL ENDORSE TO AM SHIFT RN FOR PT'S CONTINUITY OF CARE.
--- NOTE | 2019-03-27 07:15 | NUR ---
RECEIVED BEDSIDE REPORT FORM BARREL DRILLER NURSE. PATIENT IS RESTING ON BED COMFORTABLY AT THIS TIME. AROUDABLE TO VOICE. RESPIRATION EVEN AND UNLABORED ON RA. NO SIGNS OF DISTRESS NOTED. IV ON R HAND CLOSE TO WRIST AREA 22G, CLEAN AND INTACT AND R HAND 24 , CLEAN INTACT AND ABLE TO FLUSH, BOTH SL. SKIN CLEAN AND DRY. PATIENT IS CONTINENT AND ABLE TO USE URANAL BY BEDSIDE. PATIENT IS ABLE TO AMBULATE WITH ASSIST. FALL RISK PROTOCOL IN PLACE. TELE MONITOR ATTACHED. SAFETY MEASURES IN PLACE. BED IN LOW POSITION AND CALL LIGHT WITHIN REACH.
[2019-03-27 07:33] LABS: PHOSPHORUS 6.1 mg/dL (2.5-4.9)
[2019-03-27 07:35] LABS: ANION GAP 14.7 (8-16); CARBON DIOXIDE 23.7 mmol/L (21-32); POTASSIUM 4.4 mmol/L (3.5-5.1)
[2019-03-27 07:43] LABS: ALBUMIN 2.5 g/dL (3.4-5.0); ANION GAP 14.7 (8-16); CARBON DIOXIDE 23.8 mmol/L (21-32); POTASSIUM 4.5 mmol/L (3.5-5.1); TOTAL BILIRUBIN 0.4 mg/dL (0.0-1.0)
[2019-03-27 07:51] LABS: CREATININE 4.1 mg/dL (0.7-1.3)
[2019-03-27 08:00] VITALS: BP 135/64
--- NOTE | 2019-03-27 08:00 | NUR ---
RECEIVED CRITICAL VALUES FOR BUN 84 AND CREATININE 4.[address] BROOKS AND AWAIT FOR DR BROOKS TO RETURN CALL.
[2019-03-27 08:03] LABS: MAGNESIUM 2.4 mg/dL (1.8-2.4)
--- NOTE | 2019-03-27 08:15 | NUR ---
RECEIVED A CALL BACK FROM DR CANADA AND NOTIFIED DR CANADA THAT PATIENT BUN 84 AND CREATININE 4.1. DR CANADA WAS AWARE AND NO ORDER RECEIVE AT THIS TIME.
[2019-03-27] MEDS: TAMSULOSIN 0.4 MG CAP PO SCH (09:22)
[2019-03-27] MEDS: FUROSEMIDE 40 MG/4 ML VIAL IVP SCH ×2 (09:22→20:41)
[2019-03-27] MEDS: traMADol 50 MG TAB PO SCH ×2 (09:23→20:42)
[2019-03-27] MEDS: GABAPENTIN 300 MG CAP PO SCH ×2 (09:23→20:42)
[2019-03-27] MEDS: METOPROLOL 50 MG TAB PO SCH ×2 (09:24→20:43)
[2019-03-27] MEDS: NIFEdipine 90 MG TABER PO SCH (09:24)
--- NOTE | 2019-03-27 09:24 | NUR ---
ADMINISTERED MEDS PER MD ORDER, PATIENT TOLERATED WELL. MEDS EDUCATION PROVIDED TO PATIENT AND PATIENT VERBALIZED UNDERSTANDING. PATIENT IS AWAKE AND LOOKING AT HIS PHONE AT THIS TIME. DENIED PAIN, SOB, AND DIZZINESS. NO SIGNS OF DISTRESS NOTED. TELE MONITOR ATTACHED. SAFETY MEASURES IN PLACE. BED IN LOW POSITION AND CALL LIGHT WITHIN REACH. INSTRUCTED PATIENT TO USE THE CALL LIGHT FOR ANY ASSISTANCE AND PATIENT WAS AWARE.
[2019-03-27] MEDS ORDERED: METOLAZONE 5 MG TAB PO SCH (10:00)
--- NOTE | 2019-03-27 10:14 | NUR ---
ADMINISTERED MED PER MD ORDER, PATIENT TOLERATED WELL. MED EDUCATION PROVIDED TO PATIENT AND PATIENT VERBALIZED UNDERSTANDING. PATIENT IS AWAKE AND WATCHING AT THIS TIME. DENIED PAIN, SOB, AND DIZZINESS. NO SIGNS OF DISTRESS NOTED. TELE MONITOR ATTACHED. SAFETY MEASURES IN PLACE. BED IN LOW POSITION AND CALL LIGHT WITHIN REACH. INSTRUCTED PATIENT TO USE THE CALL LIGHT FOR ANY ASSISTANCE AND PATIENT WAS AWARE.
[2019-03-27] MEDS: IRON SUCROSE COMPLEX 100 MG/5 ML VIAL IVP SCH (11:24)
--- NOTE | 2019-03-27 11:28 | NUR ---
ADMINISTERED MED VIA IVP OVER 3 MINS PER MD ORDER, PATIENT TOLERATED WELL. MED EDUCATION PROVIDED TO PATIENT AND PATIENT VERBALIZED UNDERSTANDING. PATIENT AWAKE AND WATCHING TV ON BED AT THIS TIME. DENIED PAIN, SOB, AND DIZZINESS. NO SIGNS OF DISTRESS NOTED. TELE MONITOR ATTACHED. SAFETY MEASURES IN PLACE. BED IN LOW POSITION AND CALL LIGHT WITHIN REACH. INSTRUCTED PATIENT TO USE THE CALL LIGHT FOR ANY ASSISTANCE AND PATIENT WAS AWARE.
[2019-03-27 12:00] VITALS: BP 146/62
[2019-03-27] MEDS: INSULIN LISPRO SLIDING SCALE 100 UNITS/ML VIAL SUBQ PRN ×3 (12:06→20:40)
--- NOTE | 2019-03-27 12:06 | NUR ---
ADMINISTERED 2 UNIT HUMALOG SUBQ ON R LATERAL ARM FOR GLUCOSE 176, PATIENT TOLERATED WELL. PATIENT AWAKE AND WATCHING TV ON BED. DENIED PAIN, SOB, AND DIZZINESS. PATIENT SAID " I AM READY FOR LUNCH." NO SIGNS OF DISTRESS NOTED. TELE MONITOR ATTACHED. SAFETY MEASURES IN PLACE. BED IN LOW POSITION AND CALL LIGHT WITHIN REACH. INSTRUCTED PATIENT TO USE THE CALL LIGHT FOR ANY ASSISTANCE AND PATIENT WAS AWARE.
--- NOTE | 2019-03-27 13:45 | NUR ---
PATIENT AWAKE AND WATCHING TV ON BED. DENIED PAIN, SOB, AND DIZZINESS. NO SIGNS OF DISTRESS NOTED. SAFETY MEASURES IN PLACE. BED IN LOW POSITION AND CALL LIGHT WITHIN REACH. INSTRUCTED PATIENT TO USE THE CALL LIGHT FOR ANY ASSISTANCE AND PATIENT WAS AWARE.
[2019-03-27 16:00] VITALS: BP 133/66
--- NOTE | 2019-03-27 16:20 | NUR ---
ADMINISTERED MED PER MD ORDER, PATIENT TOLERATED WELL. PATIENT AWAKE AND WATCHING TV ON BED AT THIS TIME. DENIED PAIN, SOB, AND DIZZINESS. NO SIGNS OF DISTRESS NOTED. TELE MONITOR ATTACHED. SAFETY MEASURES IN PLACE. BED IN LOW POSITION AND CALL LIGHT WITHIN REACH. INSTRUCTED PATIENT TO USE THE CALL LIGHT FOR ANY ASSISTANCE AND PATIENT SAID OK.
--- NOTE | 2019-03-27 17:35 | NUR ---
PATIENT AWAKE AND RESTING ON BED AT THIS TIME. DENIED PAIN, SOB AND DIZZINESS. NO SIGNS OF DISTRESS NOTED. TELE MONITOR ATTACHED. SAFETY MEASURES IN PLACE. BED IN LOW POSITION AND CALL LIGHT WITHIN REACH. INSTRUCTED PATIENT TO USE THE CALL LIGHT FOR ANY ASSISTANCE AND PATIENT WAS AWARE.
--- NOTE | 2019-03-27 18:11 | NUR ---
PATIENT IS EATING DINNER AND TALKING TO VISITORS BY BEDSIDE. NO SIGNS OF DISTRESS NOTED. TELE MONITOR ATTACHED. SAFETY MEASURES IN PLACE. BED IN LOW POSITION AND CALL LIGHT WITHIN REACH. INSTRUCTED PATIENT TO USE THE CALL LIGHT FOR ANY ASSISTANCE AND PATIENT WAS AWARE.
--- NOTE | 2019-03-27 19:16 | NUR ---
ENDORSED PATIENT AT BEDSIDE TO SVP NURSE FOR CONTINUITY OF CARE. PATIENT IS RESTING ON BED AT THIS TIME AND AROUSABLE TO VOICE. NO SIGNS OF DISTRESS NOTED. PATIENT IS IN STABLE CONDITION. TELE MONITOR ATTACHED. SAFETY MEASURES IN PLACE. BED IN LOW POSITION AND CALL LIGHT WITHIN REACH. I
--- NOTE | 2019-03-27 19:20 | NUR ---
RECEIVED BEDSIDE REPORT FROM AM SHIFT RN RUSS, FOR PT'S CONTINUITY OF CARE. PT IS LYING DOWN AROUSABLE TO VOICE, DENIES ANY PAIN AT THIS TIME, IS ON ROOM AIR, ON FLY FISHING GUIDE, HAS RIGHT HAND/WRIST 22G AND RIGHT HAND 24G SALINE LOCK. EXPLAINED TO PT THE STONE DERRICKMAN AND RIGGER ROUTINE, PT VERBALIZED UNDERSTANDING. BED IS ON LOW POSITION, SIDE RAILS ARE UP, AND CALL LIGHT IS WITHIN REACH. WILL MONITOR PT THROUGHOUT SHIFT.
[2019-03-27 20:00] VITALS: BP 134/63
[2019-03-27] MEDS: SIMVASTATIN 40 MG TAB PO SCH (20:42)
--- NOTE | 2019-03-27 20:45 | NUR ---
VS AND BLOOD GLUCOSE CHECKED AND CHARTED. ADMINISTERED SCHEDULED IV PUSH, PO, AND SUBQ MEDICATIONS ORDERED. PT TOLERATED THEM WELL. WILL CONTINUE TO MONITOR PT.
--- NOTE | 2019-03-27 22:10 | NUR ---
MADE ROUNDS. PT IS LYING DOWN ASLEEP, WITH NO SIGNS OF DISTRESS. WILL CONTINUE TO MONITOR PT.
[2019-03-28] VITALS: BP 128/72
--- NOTE | 2019-03-28 | NUR ---
VS CHECKED AND CHARTED. PT WOKE UP, AND DENIES ANY PAIN AT THIS TIME. LEFT ARM DOES NOT LOOK EDEMATOUS AND SKIN DOES NOT FEEL TAUT. WILL CONTINUE TO MONITOR PT.
--- NOTE | 2019-03-28 02:30 | NUR ---
MADE ROUNDS. PT LYING DOWN ASLEEP WITH NO SIGNS OF DISTRESS.
[2019-03-28 04:00] VITALS: BP 120/63
--- NOTE | 2019-03-28 04:00 | NUR ---
PT AWAKE WATCHING TV, VS TAKEN, PT DENIES ANY PAIN OR DISCOMFORT AT THIS TIME. WILL CONTINUE TO MONITOR PT.
[2019-03-28] MEDS: INSULIN LISPRO SLIDING SCALE 100 UNITS/ML VIAL SUBQ PRN ×4 (06:05→21:08)
[2019-03-28] MEDS: BLOOD GLUCOSE MONITORING 1 DEV DEV FS SCH ×4 (06:05→21:04)
--- NOTE | 2019-03-28 06:05 | NUR ---
BLOOD GLUCOSE CHECKED AND CHARTED. ADMINISTERED SUBQ INSULIN PER SLIDING SCALE ORDERED. PT TOLERATED IT WELL. PT TEACHING REGARDING BLOOD SUGAR CONTROL, PT VERBALIZED UNDERSTANDING.
[2019-03-28] MEDS: glipiZIDE 5 MG TAB PO SCH ×2 (06:34→17:01)
--- NOTE | 2019-03-28 06:35 | NUR ---
ADMINISTERED SCHEDULED PO MEDICATION ORDERED. PT TOLERATED IT WELL. PT DENIES ANY PAIN OR NEEDS AT THIS TIME. PT LYING DOWN IN BED COMFORTABLY WITH NO SIGNS OF RESPIRATORY DISTRESS. WILL ENDORSE TO AM SHIFT RN FOR PT'S CONTINUITY OF CARE.
--- NOTE | 2019-03-28 07:10 | NUR ---
RECEIVED BEDSIDE REPORT FORM ORACLE ENGINEER NURSE. PATIENT IS RESTING ON BED COMFORTABLY AT THIS TIME. AROUSABLE TO VOICE. RESPIRATION EVEN AND UNLABORED ON RA. NO SIGNS OF DISTRESS NOTED. IV ON R HAND CLOSE TO WRIST AREA 22G, CLEAN AND INTACT AND R HAND 24 , CLEAN INTACT AND ABLE TO FLUSH, BOTH SL. SKIN CLEAN AND DRY. PATIENT IS CONTINENT AND ABLE TO USE URANAL BY BEDSIDE. PATIENT IS ABLE TO AMBULATE WITH ASSIST. DISCUSSED PLAN OF CARE WITH PATIENT AND PATIENT VERBALIZED UNDERSTANDING. FALL RISK PROTOCOL IN PLACE. TELE MONITOR ATTACHED. SAFETY MEASURES IN PLACE. BED IN LOW POSITION AND CALL LIGHT WITHIN REACH. INSTRUCTED PATIENT TO UES THE CALL LIGHT FOR ANY ASSISTANCE AND PATIENT SAID OK.
[2019-03-28 07:46] LABS: ANION GAP 12.5 (8-16); CARBON DIOXIDE 24.1 mmol/L (21-32); POTASSIUM 4.6 mmol/L (3.5-5.1)
[2019-03-28 07:56] LABS: CREATININE 4.4 mg/dL (0.7-1.3)
--- NOTE | 2019-03-28 07:57 | NUR ---
RECEIVED CRITICAL LAB FOR BUN 86, CR 4.4 AND CA 8.4. PAGED DR CANADA AND AWAITING FOR CALL BACK.
[2019-03-28 08:00] VITALS: BP 132/60
--- NOTE | 2019-03-28 08:00 | NUR ---
RECEIVED A CALL BACK FROM DR CANADA. NOTIFIED THAT BUN 86, CR 4.4 [address] CA [address] CANADA WAS AWARE OF CRITICAL VALUES. NO ORDER RECEIVED AT THIS TIME.
[2019-03-28] MEDS: TAMSULOSIN 0.4 MG CAP PO SCH (08:53)
[2019-03-28] MEDS: GABAPENTIN 300 MG CAP PO SCH ×2 (08:53→21:13)
[2019-03-28] MEDS: METOPROLOL 50 MG TAB PO SCH ×2 (08:54→21:13)
[2019-03-28] MEDS: traMADol 50 MG TAB PO SCH ×2 (08:55→21:14)
[2019-03-28] MEDS: FUROSEMIDE 40 MG/4 ML VIAL IVP SCH (08:56)
[2019-03-28] MEDS: NIFEdipine 90 MG TABER PO SCH (08:57)
--- NOTE | 2019-03-28 08:57 | NUR ---
ADMINISTERED MEDS PER MD ORDER, PATIENT TOLERATED WELL. MEDS EDUCATION PROVIDED TO PATIENT AND PATIENT VERBALIZED UNDERSTANDING. PATIENT AWAKE AND WATCHING TV ON BED AT THIS TIME. DENIED PAIN, SOB AND DIZZINESS. RESPIRATION EVEN AND UNLABORED ON RA. NO SIGNS OF DISTRESS NOTED. SAFETY MEASURES IN PLACE. TELE MONITOR ATTACHED. BED IN LOW POSITION AND CALL LIGHT WITHIN REACH. INSTRUCTED PATIENT TO USE THE CALL LIGHT FOR ANY ASSISTANCE AND PATIENT WAS AWARE.
[2019-03-28] MEDS ORDERED: METOLAZONE 5 MG TAB PO SCH (09:00)
--- NOTE | 2019-03-28 09:50 | NUR ---
PATIENT AWAKE AND WATCHING TV ON BED AT THIS TIME. DENIED PAIN, SOB, AND DIZZINESS. NO SIGNS OF DISTRESS NOTED. SAFETY MEASURES IN PLACE. TELE MONITOR ATTACHED. BED IN LOW POSITION AND CALL LIGHT WITHIN REACH. INSTRUCTED PATIENT TO USE THE CALL LIGHT FOR ANY ASSISTANCE AND PATIENT WAS AWARE.
[2019-03-28] MEDS: IRON SUCROSE COMPLEX 100 MG/5 ML VIAL IVP SCH (11:23)
--- NOTE | 2019-03-28 11:23 | NUR ---
ADMINISTERED MED VIA IVP FOR 3 MINS PER MD ORDER, PATIENT TOLERATED WELL. MED EDUCATION PROVIDED TO PATIENT AND PATIENT VERBALIZED UNDERSTANDING. CHECKED BLOOD GLUCOSE AND RECEIVED 310, WILL ADMINISTER INSULIN. PATIENT AWAKE AND WATCHING TV ON BED AT THIS TIME. DENIED PAIN, SOB AND DIZZINESS. RESPIRATION EVEN AND UNLABORED ON RA. NO SIGNS OF DISTRESS NOTED. SAFETY MEASURES IN PLACE. TELE MONITOR ATTACHED. BED IN LOW POSITION AND CALL LIGHT WITHIN REACH. INSTRUCTED PATIENT TO USE THE CALL LIGHT FOR ANY ASSISTANCE AND PATIENT WAS AWARE.
[2019-03-28 12:00] VITALS: BP 137/64
--- NOTE | 2019-03-28 13:43 | NUR ---
PATIENT AWAKE AND TALKING TO NEPHEW BY BEDSIDE. DENIED PAIN, SOB, AND DIZZINESS. NO SIGNS OF DISTRESS NOTED. SAFETY MEASURES IN PLACE. BED IN LOW POSITION AND CALL LIGHT WITHIN REACH. TELE MONITOR ATTACHED. INSTRUCTED PATIENT TO USE THE CALL LIGHT FOR ANY ASSISTANCE AND PATIENT WAS AWARE.
--- NOTE | 2019-03-28 13:56 | NUR ---
DR CANADA IS ASSESSING AND TALKING TO PATIENT AND PATIENT'S FAMILY AT BEDSIDE. DR CANADA DISCUSSED THE PLAN OF CARE TO PATIENT AND PATIENT'S FAMILY, ALL VERBALIZED UNDERSTANDING. NO SIGNS OF DISTRESS NOTED. SAFETY MEASURES IN PLACE. BED IN LOW POSITION AND CALL LIGHT WITHIN REACH. TELE MONITOR ATTACHED. INSTRUCTED PATIENT TO USE THE CALL LIGHT FOR ANY ASSISTANCE AND PATIENT WAS AWARE.
[2019-03-28 16:00] VITALS: BP 122/64
--- NOTE | 2019-03-28 16:20 | NUR ---
PATIENT AWAKE AND TALKING TO VISITORS AT BEDSIDE. NO SIGNS OF DISTRESS NOTED. SAFETY MEASURES IN PLACE.
--- NOTE | 2019-03-28 17:01 | NUR ---
ADMINISTERED MED PER MD ORDER, PATIENT TOLERATED WELL. MED EDUCATION PROVIDED TO PATIENT AND PATIENT VERBALIZED UNDERSTANDING. PATIENT AWAKE AND TALKING TO VISITORS BY BEDSIDE. NO SIGNS OF DISTRESS NOTED. SAFETY MEASURES IN PLACE. TELE MONITOR ATTACHED. BED IN LOW POSITION AND CALL LIGHT WITHIN REACH. FALL RISK PROTOCOL IN PLACE. INSTRUCTED PATIENT TO USE THE CALL LIGHT FOR ANY ASSISTANCE AND PATIENT WAS AWARE.
--- NOTE | 2019-03-28 17:16 | NUR ---
ADMINISTERED 2 UNITS HUMALOG FOR BLOOD GLUCOSE 191, PATIENT TOLERATED WELL. PATIENT AWAKE AND TALKING TO FAMILY AT BEDSIDE. NEXT OF KIN, PATIENT'S SISTER KENDALL [phone] REQUESTS TO BE INFORM IF POSSIBLE FOR DIALYSIS TREATMENT OR ANY INVASIVE PLAN OF CARE PRIOR TO ANY EVENT/ACTION TAKE PLACE, WILL ENDORSE INFORMATION TO ONCOMING SHIFT NURSE. TELE MONITOR ATTACHED. BED IN LOW POSITION AND CALL LIGHT WITHIN REACH. FALL RISK PROTOCOL IN PLACE. INSTRUCTED PATIENT TO USE THE CALL LIGHT FOR ANY ASSISTANCE AND PATIENT WAS AWARE.
--- NOTE | 2019-03-28 19:28 | NUR ---
RECEIVED BEDSIDE REPORT FROM AM SHIFT RN RUSS, FOR PT'S CONTINUITY OF CARE. PT IS AAOX4, IS ON ROOM AIR, ON SENIOR REPORT DEVELOPER, HAS A RIGHT HAND 22G AND 24G SALINE LOCK, PT DENIES PAIN AT THIS TIME, EXPLAINED TO PT THE INTERLOCKER ROUTINE, PT VERBALIZED UNDERSTANDING. FALL PRECAUTION IN PLACE, CALL LIGHT IS WITHIN REACH. WILL MONITOR PT THROUGHOUT SHIFT.
[2019-03-28 20:00] VITALS: BP 141/75
[2019-03-28] MEDS: SIMVASTATIN 40 MG TAB PO SCH (21:14)
--- NOTE | 2019-03-28 21:15 | NUR ---
VS AND BLOOD SUGAR CHECKED AND CHARTED. ADMINISTERED SCHEDULED PO AND SUBQ INSULIN MEDICATIONS ORDERED. PT TEACHING GIVEN, VERBALIZED UNDERSTANDING. PT TOLERATED THEM WELL. WILL CONTINUE TO MONITOR.
--- NOTE | 2019-03-28 22:00 | NUR ---
PT REQUESTED TO SIT ON THE CHAIR AT BEDSIDE TO WATCH TV. ASSISTED PT TO THE CHAIR WITH HELP FROM BREAD DOUGH MIXER. PT TOLERATED IT WELL, DENIES ANY PAIN OR DISCOMFORT. EXPLAINED TO PT THE FALL RISK INDICATION, PT AGREES TO BE ON THE CHAIR FOR FEW MINUTES, THEN WILL BE ASSISTED BACK TO THE BED. WILL BE AT BEDSIDE TO MONITOR PT, UNTIL HE GOES BACK TO BED.
[2019-03-29] VITALS: BP 153/74
--- NOTE | 2019-03-29 00:15 | NUR ---
VS CHECKED AND CHARTED. PT LYING DOWN ASLEEP WITH NO SIGNS OF DISTRESS. WILL CONTINUE TO MONITOR.
--- NOTE | 2019-03-29 02:15 | NUR ---
MADE ROUNDS. PT LYING DOWN APPEARS TO BE ASLEEP WITH NO SIGNS OF DISTRESS.
[2019-03-29 04:00] VITALS: BP 159/78
--- NOTE | 2019-03-29 04:30 | NUR ---
VS CHECKED AND CHARTED. PT LYING DOWN WITH NO SIGNS OF DISTRESS. WILL CONTINUE TO MONITOR.
--- NOTE | 2019-03-29 06:00 | NUR ---
BLOOD GLUCOSE CHECKED AND CHARTED. WILL ADMINISTER INSULIN PER SLIDING SCALE ORDERED. PT SLEEPING, WOKE UP AND DENIES ANY PAIN. WILL CONTINUE TO MONITOR.
[2019-03-29] MEDS: BLOOD GLUCOSE MONITORING 1 DEV DEV FS SCH ×4 (06:34→20:51)
[2019-03-29] MEDS: INSULIN LISPRO SLIDING SCALE 100 UNITS/ML VIAL SUBQ PRN ×3 (06:34→20:55)
[2019-03-29] MEDS: glipiZIDE 5 MG TAB PO SCH ×2 (06:36→16:22)
--- NOTE | 2019-03-29 06:39 | NUR ---
ADMINISTERED SCHEDULED PO AND SUBQ INSULIN PER SLIDING SCALE ORDERED. PT TOLERATED THEM WELL. PT DENIES ANY PAIN OR DISCOMFORT. SAFETYU MEASURES IN PLACE, REMINDED THE PT THE USE OF CALL LIGHT, PT VERBALIZED UNDERSTANDING. WILL ENDORSE TO AM SHIFT RN FOR PT'S CONTINUITY OF CARE.
--- NOTE | 2019-03-29 07:10 | NUR ---
RECEIVED BEDSIDE REPORT FROM DONOR SUPPORT TECHNICIAN NURSE LISS, PT IS ASLEEP, NO S/S OF ACUTE DISTRESS NOTED, PT IS ON ROOM AIR. SKIN IS INTACT, BLE DRYNESS NOTED. IV SITES NOTED ON THE R HAND 22 G, AND R HAND 24 G, SALINE LOCKED. PT IS ON 1000 ML/BIANCA FLUID RESTRICTION. FALL PRECAUTIONS IN PLACE, CALL LIGHT IS WITHIN REACH.
[2019-03-29 07:35] LABS: ANION GAP 14.7 (8-16); POTASSIUM 4.7 mmol/L (3.5-5.1)
[2019-03-29 07:43] LABS: CREATININE 4.2 mg/dL (0.7-1.3)
[2019-03-29 08:00] VITALS: BP 147/74
[2019-03-29] MEDS: GABAPENTIN 300 MG CAP PO SCH (09:03)
[2019-03-29] MEDS: traMADol 50 MG TAB PO SCH ×2 (09:03→20:53)
[2019-03-29] MEDS: METOPROLOL 50 MG TAB PO SCH ×2 (09:03→20:53)
[2019-03-29] MEDS: NIFEdipine 90 MG TABER PO SCH (09:04)
[2019-03-29] MEDS: TAMSULOSIN 0.4 MG CAP PO SCH (09:04)
--- NOTE | 2019-03-29 09:07 | NUR ---
ORDERED AM MEDS ADMINISTERED, PT TOLERATED WELL.
--- NOTE | 2019-03-29 09:27 | NUR ---
PT SEEN BY PHYSICAL THERAPY
--- NOTE | 2019-03-29 11:10 | NUR ---
PT SEEN BY DR CANADA
[2019-03-29 12:00] VITALS: BP 127/68
[2019-03-29] MEDS: IRON SUCROSE COMPLEX 100 MG/5 ML VIAL IVP SCH (12:29)
--- NOTE | 2019-03-29 13:44 | NUR ---
03/29/19 RD INITIAL ASSESSMENT COMPLETED PLEASE REFER TO NUTRITION ASSESSMENT UNDER CARE ACTIVITY FOR ESTIMATED NUTRITIONAL NEEDS. 1. RECOMMEND RENAL, LOW PHOSPHORUS, CCHO 60GM, AND CARDIAC DIET TOLERATED 2. CONTINUE FLUID RESTRICTION OF 1000ML/DAY 3. RD PROVIDED NUTRITION EDUCATION FOR LOW SALT, FLUID RESTRICTION, LOW PHOSPHORUS FOODS, AND CONSISTENT CARBOHYDRATE DIET. PT ACCEPTED 4. RD TO FOLLOW-UP 3-5 DAYS, MODERATE RISK GABRIELLA PINEDA RD
--- NOTE | 2019-03-29 13:45 | NUR ---
RECEIVED A CALL FROM EMMIE OF [facility], STATING THAT THE PATIENT'S SISTER CALLED HER AND IS REQUESTING IF PATIENT CAN BE DISCHARGE TO A SNF FOR MORE REHAB SERVICES. UPDATED HER OF THE PT EVALUATION FOR TODAY THAT PATIENT WALKED 110 FEET WITH MINIMAL ASSISTANCE AND WITH FRONT WALKER. SHE STATED WILL CONTACT DR. CANADA. SHE ALSO STATED TO CONTACT [facility] FOR SHORT TERM PT, SHE STATED SHE CAN PROVIDE AUTH FOR 7 DAYS. CHARGE NURSE MADE AWARE.
--- NOTE | 2019-03-29 13:51 | NUR ---
PER ENRIKE PENNINGTON, SHE RECEIVED A CALL FROM EMMIE OF [facility]. PATIENT GOT ACCEPTED AT [facility]. CONTACTED [facility] AT [phone], ABLE TO SPEAK TO PRATIMA. SHE STATED TANI STEPPED OUT FOR LUNCH. PROVIDED HER WITH MY CONTACT INFO FOR TANI. SHE STATED SHE WILL HAVE TANI CALL ME BACK. FREDDY WILL FOLLOW UP.
--- NOTE | 2019-03-29 13:58 | NUR ---
CALLED PT'S SISTER KENDALL TO LET HER KNOW THAT PT HAS BEEN DC'D HOME, KENDALL SAYS THAT SHE WANTS PT TO GO TO A REHAB FACILITY FOR PHYSICAL THERAPY. EMMIE FROM [facility] IS AWARE AND WILL CALL DR. CANADA. I ALSO PAGED DR. CANADA TO NOTIFY HIM OF THIS CHANGE, WAITING FOR HIS CALL BACK.
--- NOTE | 2019-03-29 14:18 | NUR ---
PT WAS ENDORSED TO LUIS VALDIVIA, FOR CONTINUITY OF CARE.
--- NOTE | 2019-03-29 14:19 | NUR ---
RECEIVED REPORT FROM LUIS MARQUEZ. PT IS SITTING UP IN BED WATCHING TV. PT HAS NO SIGNS OF DISTRESS AT THIS TIME.
[2019-03-29] MEDS ORDERED: NACL 0.9% 1,000 ML IV SCH (15:35)
--- NOTE | 2019-03-29 15:54 | NUR ---
CONTACTED [facility] AT [phone] REGARDING INQUIRY FOR SNF PLACEMENT. SHE STATED SHE WORKING ON TRANSFERRING ONE OF THEIR PATIENTS TO THEIR SISTER FACILITY TO ACCOMMODATE THE PATIENT. SHE ALSO STATED SHE WILL CALL ME BACK WITH UPDATE. EMMIE OF [facility] MADE AWARE. SHE STATED TO GO AHEAD AND SENT INQUIRY TO [facility] AND [facility]UL[facility]. SHE ALSO PROVIDED ME WITH TRANSPORT AUTH [id number] AND SNF AUTH [id number]. SHE ALSO REQUESTED TO CALL HER IF A SNF ACCEPTS THE PATIENT. SHE ALSO PROVIDED ME WITH PHONE NUMBER TO CONTACT HER [phone] BECAUSE OF POOR CLINICAL ALLERGIST OF HER REGULAR PHONE (SHE IS IN A HOSPITAL AT THIS MOMENT). CLINICALS FAXED TO [facility] AND [facility]UL[facility]. WILL FOLLOW UP. Addendum: 03/29/19 at 1615 by Nanette Rogers CONTACTED JASON OF [facility] AT [phone] REGARDING INQUIRY, SHE STATED THAT SHE WILL REVIEW THE CASE AND WILL GIVE ME A CALL. RECEIVED A CALL FROM [facility], SHE STATED THEY ARE ABLE TO ACCEPT THE PATIENT. PATIENT WILL GO TO ROOM 7C UNDER DR. MATA.
[2019-03-29 16:00] VITALS: BP 140/68
--- NOTE | 2019-03-29 16:18 | NUR ---
ARRANGED TRANSPORT WITH [facility] , CONTINUOUS MINING MACHINE LODE MINER TIME IS 8PM NOTIFIED CHARGE NURSE BRANDT
--- NOTE | 2019-03-29 16:22 | NUR ---
ADMINISTERED GLIPIZIDE PER ORDER, PT IS AWARE OF INDICATIONS AND POTENTIAL SIDE EFFECTS OF MEDICATION. VSS. BS CHECKED AT 222 AT THIS TIME.
[2019-03-29] MEDS ORDERED: INFLUENZA VACCINE QUAD 0.5 ML SYR IM PRN (17:35)
--- NOTE | 2019-03-29 17:51 | NUR ---
ADMINISTERED HUMALOG PER SLIDING SCALE FOR BLOOD SUGAR 222. NO S/S OF HYPERGLYCEMIA. PT ALSO GIVEN INFLUENZA VACCINE TO LT DELTOID LOT [id number], EXP [id number]. WILL CONTINUE TO MONITOR PT.
--- NOTE | 2019-03-29 18:10 | NUR ---
PT'S SISTER/ROLO NOTIFIED THAT PT WILL BE TRANSFERRED TO [facility]. ALL QUESTIONS ANSWERED AND CLARIFIED.
--- NOTE | 2019-03-29 18:35 | NUR ---
GIVEN REPORT TO MIRANDA/RN FROM [facility]. ALL QUESTIONS ANSWERED AND CLARIFIED. NOTIFIED RN THAT IT TELECOM TECHNICIAN TIME FROM [facility] WILL BE 1999.
--- NOTE | 2019-03-29 19:25 | NUR ---
ENDORSED PT TO SUPERIOR COURT JUDGE NURSE. PT HAS NO SIGNS OF DISTRESS AT THIS TIME.
--- NOTE | 2019-03-29 19:26 | NUR ---
REPORT RECEIVED FROM AM NURSE AT BEDSIDE. PT IN STABLE CONDITION. AAOX4. INTRODUCED SELF TO PT. BOARD UPDATED. NO COMPLAINTS OF PAIN. NO SOB. AFEBRILE. PT IS AMBULATORY WITH ASSISTIVE DEVICE. PT TO TRANSFER TO [facility] AT 1999. IV SITE R HAND 22G AND 24G SL BOTH PATENT AND INTACT. SKIN WARM, DRY, AND INTACT WITH NO OPEN WOUNDS. BED LOCKED IN LOW POSITION. CALL PETERSON WITHIN REACH. SAFETY PRECAUTION IN PLACE. ALL NEEDS MET AT THIS TIME.
[2019-03-29] MEDS: SIMVASTATIN 40 MG TAB PO SCH (20:53)
--- NOTE | 2019-03-29 20:53 | NUR ---
LOPRESSOR, NEURONTIN, ULTRAM, AND ZOCOR GIVEN PO. BS 178. 2 UNITS OF HUMALOG GIVEN. PT TOLERATED WELL.
[2019-03-29] MEDS ORDERED: GABAPENTIN 300 MG CAP PO SCH (21:00)
--- NOTE | 2019-03-29 22:45 | NUR ---
PT SLEEPING COMFORTABLY BUT AROUSABLE. NO S/S OF DISTRESS NOTED. WILL CONTINUE TO MONITOR.
--- NOTE | 2019-03-29 22:54 | NUR ---
REPORT GIVEN TO NATHAN SMITH. PT IN STABLE CONDITION.
--- NOTE | 2019-03-29 22:55 | NUR ---
RECEIVED REPORT FROM JEAN PIERRE SMITH.PT IS IN STABLE CONDITION AND READY TO TRANSFER TO SNF.
[2019-04-01] MEDS ORDERED: EPOETIN ALFA 10,000 UNITS/ML VIAL SUBQ SCH (09:00)
== END 2019-03-29 23:20 | DRG 682 ==
LOC: MED 16:49 → MTU 21:27
PROVIDERS: ADMIT Internal Medicine Pulmonary Disease; ATTEND Internal Medicine Pulmonary Disease
PROC: 30233N1 Transfusion of Nonautologous Red Blood Cells into Peripheral Vein, Percutaneous Approach (ICD-10-PCS; principal; 2019-03-26)
DX: N17.9 Acute kidney failure, unspecified (principal); I50.33 Acute on chronic diastolic (congestive) heart failure; I13.2 Hypertensive heart and chronic kidney disease with heart failure and with stage 5 chronic kidney disease, or end stage renal disease; E44.1 Mild protein-calorie malnutrition; N18.5 Chronic kidney disease, stage 5; I16.0 Hypertensive urgency; E11.22 Type 2 diabetes mellitus with diabetic chronic kidney disease; I87.8 Other specified disorders of veins; D63.8 Anemia in other chronic diseases classified elsewhere; Z68.25 Body mass index [BMI] 25.0-25.9, adult; Z79.84 Long term (current) use of oral hypoglycemic drugs; Z88.8 Allergy status to other drugs, medicaments and biological substances; Z87.891 Personal history of nicotine dependence
CPT/HCPCS: 36415; 71045; 76770; 80048; 80053; 81001; 82728; 82948; 83036; 83540; 83605; 83690; 83721; 83735; 83880; 84100; 84484; 85025; 85610; 85730; 86886; 86900; 86901; 86920; 87040; 87081; 87086; 93005; 96374; 96375; 97116; 97161-GP; 97530; 99285; J0360; J1756; J1815; J1940; J7030; P9016; Q0092

== ENCOUNTER 2019-04-16 21:19 | Inpatient (IN) | payer OTHER ==
[~2019-04-16] VITALS: Ht 165.1 cm; Wt 72.6 kg
[~2019-04-16 21:19] MED LIST changes: -BENA40TA PO
[2019-04-16 21:22] VITALS: BP 172/102
--- NOTE | 2019-04-16 21:22 | NUR ---
PT BIBA TO BED 05.
[2019-04-16] MEDS ORDERED: NACL 0.9% 500 ML IV SCH (21:27)
[2019-04-16] MEDS ORDERED: MORPHINE SULFATE 2 MG/ML SYR IVP ONE (21:40)
[2019-04-16] MEDS ORDERED: ONDANSETRON 4 MG/2 ML VIAL IVP ONE (21:40)
[2019-04-16 22:19] LABS: HEMATOCRIT 37.8 % (36-52); HEMOGLOBIN 12.3 g/dL (12.0-18.0); MEAN CORPUSCULAR HEMOGLOBIN 28 pg (27-31); MEAN CORPUSCULAR HGB CONC 32 g/dL (33-37); MEAN CORPUSCULAR VOLUME 86.3 fL (80-94); PLATELET COUNT (AUTO) 379 K/uL (140-450); RED BLOOD CELL COUNT(AUTO) 4.38 MIL/uL (4.20-6.10); RED CELL DISTRIBUTION WIDTH 15.4 % (11.6-13.7); WHITE BLOOD COUNT (AUTO) 10.4 K/uL (4.8-10.8)
[2019-04-16 22:41] LABS: APPEARANCE,URINE CLEAR (CLEAR); BILIRUBIN,URINE NEGATIVE (NEGATIVE); BLOOD, URINE 2+ (NEGATIVE); COLOR,URINE YELLOW (YELLOW); LEUKOCYTE ESTERASE ,URINE NEGATIVE (NEGATIVE); NITRITE, URINE NEGATIVE (NEGATIVE); UGLUCOSE 1+ (NEGATIVE)
[2019-04-16 22:46] LABS: ALBUMIN 2.7 g/dL (3.4-5.0); ANION GAP 13.6 (8-16); CARBON DIOXIDE 28.9 mmol/L (21-32); POTASSIUM 3.5 mmol/L (3.5-5.1); TOTAL BILIRUBIN 0.3 mg/dL (0.0-1.0)
[2019-04-16 22:51] LABS: BASOPHILS % (MANUAL) 0 % (0-2); EOSINOPHILS % (MANUAL) 0 % (0-4); LYMPHOCYTES % (MANUAL) 3 % (20-46); MONOCYTES % (MANUAL) 5 % (5-12)
[2019-04-16 22:55] LABS: PROTHROMBIN TIME 9.5 secs (10.8-13.4)
--- NOTE | 2019-04-16 22:55 | NUR ---
68 Y/O MALE BIB AMBULANCE FROM [facility]. PRESENTS TO ED, C/O OF ABDOMINAL PAIN X10 HRS, DOES NOT RADIATE. PT C/O CONSTIPATION X1 DAY. BS ACTIVE X4 QUADRANTS. NO N/V BEFORE ARRIVAL; 1 EPISODE AFTER TRANSFER TO BED, BLACK EMESIS. NO SOB/CHEST PAIN. PT VSS. ERMD SEEN. WILL CONTINUE TO MONITOR.
[2019-04-16 22:59] LABS: RBC,URINE 50-80 /HPF (0-5); WBC,URINE 0-5 /HPF (0-5)
[2019-04-17] MEDS ORDERED: METOCLOPRAMIDE 10 MG/2 ML INJ VIAL IVP ONE (00:05)
[2019-04-17] MEDS ORDERED: MORPHINE SULFATE 2 MG/ML SYR IVP PRN (03:00)
[2019-04-17] MEDS ORDERED: ACETAMINOPHEN 325 MG TAB PO PRN (03:00)
[2019-04-17] MEDS ORDERED: ONDANSETRON 4 MG/2 ML VIAL IM/IVP PRN (03:00)
[2019-04-17] MEDS: METOPROLOL 25 MG TAB PO SCH ×4 (03:20→21:04)
[2019-04-17] MEDS ORDERED: hydrALAZINE 20 MG/ML VIAL IVP PRN (03:20)
[2019-04-17] MEDS: amLODIPine 5 MG TAB PO SCH ×3 (03:20→10:04)
[2019-04-17 04:06] LABS: CHOL/HDL RATIO 3.8 (1-4.5); MAGNESIUM 2.4 mg/dL (1.8-2.4); PHOSPHORUS 5.1 mg/dL (2.5-4.9); THYROID STIMULATING HORMONE 2.3 uIU/mL (0.34-3.74)
--- NOTE | 2019-04-17 04:15 | NUR ---
INSERTED NGT. PLACEMENT VERIFIED. PT TOLERATED PROCEDURE. WILL CONTINUE TO MONITOR.
--- NOTE | 2019-04-17 04:54 | NUR ---
REMOVED INITIAL DOYLE CATHETER. INSERTED NEW 16 FR DOYLE CATHETER. PT TOLERATED PROCEDURE. WILL CONTINUE TO MONITOR.
[2019-04-17] MEDS: NACL 0.9% 1,000 ML IV SCH ×2 (04:57→18:31)
--- NOTE | 2019-04-17 05:36 | NUR ---
CALLED AND SPOKE WITH PT'S SISTER, ROLO STARKS. NOTIFIED FAMILY REGARDING ADMISSION STATUS OF PT.
--- NOTE | 2019-04-17 07:10 | NUR ---
PT ADMITTED TO [facility] RM 110A. PT TRANSFERRED VIA [facility] WITH JUANA EMT, PT STABLE CONDITION. REPORT GIVEN TO EFE SMITH. PT CARE TRANSFERRED TO RECEIVING RN.
--- NOTE | 2019-04-17 07:20 | NUR ---
PT ADMITTED FROM ER. PT AWAKE WITH EYES CLOSED, AROUSABLE TO SPEECH. DENIES PAIN AT THIS TIME. BILATERAL LEG DRYNESS PHOTOGRAPHED IN ER. LEFT TOE WOUND PHOTOGRAPHED IN MST UPON ADMISSION. SKIN WARM AND DRY. RESPIRATIONS EVEN AND UNLABORED ON ROOM AIR. IV IN PLACE ASYMPTOMATIC AND PATENT R AC 20G INFUSING PER ORDER. ADMISSION ASSESMENT DONE AT THIS TIME. PT CANNOT RECALL PNA AND FLU VACCINE INFORMATION. SAFETY MEASURES IN PLACE. BED IN LOW POSITION. CALL LIGHT WITHIN REACH. WILL CONTINUE TO MONITOR.
[2019-04-17] MEDS ORDERED: SODIUM PHOSPHATE 118 ML ENEM RC SCH (07:30)
[2019-04-17] MEDS: TAMSULOSIN 0.4 MG CAP PO SCH (09:48)
[2019-04-17] MEDS: LACTOBACILLUS RHAMNOSUS GG 1 EACH CAP PO SCH (09:49)
[2019-04-17] MEDS: glipiZIDE 10 MG TAB PO SCH ×2 (09:50→21:05)
[2019-04-17] MEDS: GABAPENTIN 300 MG CAP PO SCH (09:56)
[2019-04-17] MEDS: DOCUSATE SODIUM 100 MG GELCAP PO SCH ×2 (09:56→21:04)
[2019-04-17] MEDS: SIMVASTATIN 40 MG TAB PO SCH (09:57)
[2019-04-17] MEDS ORDERED: BISACODYL 10 MG SUPP RC SCH (10:30)
[2019-04-17] MEDS ORDERED: MAGNESIUM HYDROXIDE 2400 MG/30 ML UDC PO SCH (10:30)
[2019-04-17 10:40] LABS: HEMOGLOBIN 11.4 g/dL (12.0-18.0); MEAN CORPUSCULAR HEMOGLOBIN 28 pg (27-31); MEAN CORPUSCULAR HGB CONC 33 g/dL (33-37); MEAN CORPUSCULAR VOLUME 85.5 fL (80-94); PLATELET COUNT (AUTO) 350 K/uL (140-450); RED CELL DISTRIBUTION WIDTH 14.8 % (11.6-13.7); WHITE BLOOD COUNT (AUTO) 9.8 K/uL (4.8-10.8)
[2019-04-17 11:14] LABS: BASOPHILS % (MANUAL) 0 % (0-2); EOSINOPHILS % (MANUAL) 0 % (0-4); LYMPHOCYTES % (MANUAL) 5 % (20-46); MONOCYTES % (MANUAL) 7 % (5-12)
[2019-04-17 12:00] VITALS: BP 152/74
[2019-04-17 12:24] LABS: ANION GAP 16.7 (8-16); CARBON DIOXIDE 25.4 mmol/L (21-32); POTASSIUM 3.1 mmol/L (3.5-5.1)
[2019-04-17 12:25] LABS: CREATININE 4.3 mg/dL (0.7-1.3)
[2019-04-17] MEDS: HYDROcodone/APAP 7.5/325 MG 1 TAB PO PRN (13:20)
[2019-04-17] MEDS: SENNA 8.6 MG TAB PO SCH ×2 (13:20→17:56)
[2019-04-17] MEDS: POLYETHYLENE GLYCOL 17 GM/PKT PO SCH ×3 (13:21→21:07)
[2019-04-17] MEDS: PIPERACILLIN/TAZOBACTAM 2.25 GM in DEXTROSE 5% 50 ML IV SCH ×2 (13:22→22:00)
[2019-04-17] MEDS ORDERED: MAGNESIUM CITRATE 300 ML BTL PO SCH (13:30)
[2019-04-17] MEDS ORDERED: POTASSIUM CHLORIDE 20% 40 MEQ/15 ML UDC PO SCH (14:00)
[2019-04-17 16:00] VITALS: BP 150/70
[2019-04-17] MEDS ORDERED: ALBUTEROL SULFATE/IPRATROPIU 3 ML SOL IH PRN (16:55)
--- NOTE | 2019-04-17 19:15 | NUR ---
RECD. RESTING IN BED, AWAKE, A/OX2, WITH FORGETFULNESS. RESPIRATION EVEN AND UNLABORED. IV OF NS AT 60 ML/HR INFUSING, LEFT AC G20. ABDOMEN MODERATELY DISTENDED, WITH POSITIVE BOWEL SOUNDS ON ALL QUADRANTS. BILATERAL EXTREMITIES WITH DISCOLORATION, VERY DRY AND FLAKY SKIN. WITH DIABETIC ULCER AT THE RIGHT WATSON OPEN TO AIR DRY AND INTACT. F/C PATENT DRAINING CLEAR YELLOW URINE. PLAN OF CARE FOR THE SHIFT DISCUSSED. NEEDS REINFORCEMENT. DENIES ABDOMINAL PAIN 0/10. NO N/V NOTED.
--- NOTE | 2019-04-17 19:30 | NUR ---
Patient's Plan of Care was discussed and reviewed with EMBLEM FUSER TENDER: MICKEY.
[2019-04-17 20:00] VITALS: BP 149/76
[2019-04-17] MEDS: ALBUTEROL SULFATE/IPRATROPIU 3 ML SOL IH SCH (20:26)
--- NOTE | 2019-04-17 20:35 | NUR ---
RECEIVED PATIENT ON ROOM AIR, PULSE OX SAT 95%. SCHEDULED BREATHING TREATMENT ADMINISTERED. TOLERATED TX WELL WITHOUT ADVERSE SIDE EFFECTS. NO ACUTE RESPIRATORY DISTRESS NOTED AT THIS TIME. WILL CONTINUE TO MONITOR.
--- NOTE | 2019-04-17 21:05 | NUR ---
DUE PO MEDICATIONS GIVEN, TOLERATED WELL.
[2019-04-17] MEDS ORDERED: DEXTROSE 50% 50 ML SYR IVP PRN (21:15)
[2019-04-17] MEDS: INSULIN LISPRO SLIDING SCALE 100 UNITS/ML VIAL SUBQ PRN (22:04)
[2019-04-17] MEDS: BLOOD GLUCOSE MONITORING 1 DEV DEV FS SCH (22:04)
[2019-04-18] VITALS: BP 158/68
--- NOTE | 2019-04-18 | NUR ---
HAD LARGE LOOSE BM. CLEANSED AND MADE COMFORTABLE IN BED, WITH PILLOWS.
--- NOTE | 2019-04-18 02:00 | NUR ---
STILL SLEEPING COMFORTABLY IN BED.
[2019-04-18 04:00] VITALS: BP 160/71
--- NOTE | 2019-04-18 04:00 | NUR ---
HAD A SMALL AMOUNT OF LOOSE BM, BROWNISH COLOR. CLEANSED AND REPOSITIONED IN BED WITH PILLOWS. DENIES PAIN 0/10.
[2019-04-18] MEDS: NACL 0.9% 1,000 ML IV SCH ×2 (04:37→23:13)
[2019-04-18] MEDS: PIPERACILLIN/TAZOBACTAM 2.25 GM in DEXTROSE 5% 50 ML IV SCH ×3 (05:25→21:57)
[2019-04-18] MEDS: ALBUTEROL SULFATE/IPRATROPIU 3 ML SOL IH SCH ×3 (06:00→19:54)
--- NOTE | 2019-04-18 06:08 | NUR ---
MEDICATED WITH FLEET ENEMA ORDERED.
[2019-04-18] MEDS: BLOOD GLUCOSE MONITORING 1 DEV DEV FS SCH ×4 (06:09→21:20)
[2019-04-18] MEDS: INSULIN LISPRO SLIDING SCALE 100 UNITS/ML VIAL SUBQ PRN ×4 (06:14→21:21)
[2019-04-18 06:24] LABS: BASOPHILS % (AUTO) 0.6 % (0.0-2.0); EOSINOPHILS # (AUTO) 0.2 K/uL (0-0.4); EOSINOPHILS % (AUTO) 2.4 % (0.0-4.0); HEMATOCRIT 29.8 % (36-52); HEMOGLOBIN 9.7 g/dL (12.0-18.0); LYMPHOCYTES # (AUTO) 0.9 K/uL (2.0-11.5); LYMPHOCYTES % (AUTO) 10.5 % (20.5-51.1); MEAN CORPUSCULAR HEMOGLOBIN 28 pg (27-31); MEAN CORPUSCULAR HGB CONC 33 g/dL (33-37); MEAN CORPUSCULAR VOLUME 86.1 fL (80-94); MONOCYTES # (AUTO) 0.9 K/uL (0.8-1.0); MONOCYTES % (AUTO) 10.6 % (1.7-9.3); NEUTROPHILS # (AUTO) 6.2 K/uL (1.8-7.7); NEUTROPHILS % (AUTO) 75.9 % (42.2-75.2); PLATELET COUNT (AUTO) 283 K/uL (140-450); RED BLOOD CELL COUNT(AUTO) 3.46 MIL/uL (4.20-6.10); RED CELL DISTRIBUTION WIDTH 14.9 % (11.6-13.7); WHITE BLOOD COUNT (AUTO) 8.2 K/uL (4.8-10.8)
--- NOTE | 2019-04-18 06:35 | NUR ---
HAD A LARGE SOLID BM. CLEANSED AND REPOSITIONED IN BED WITH PILLOWS.
[2019-04-18 06:51] LABS: MAGNESIUM 2.4 mg/dL (1.8-2.4); PHOSPHORUS 5.7 mg/dL (2.5-4.9)
--- NOTE | 2019-04-18 06:51 | NUR ---
CONDITIONED REMAIN STABLE. WILL ENDORSE TO AM NURSE FOR CONTINUITY OF CARE.
[2019-04-18] MEDS ORDERED: MINERAL OIL 135 ML ENEM RC SCH (07:00)
--- NOTE | 2019-04-18 07:20 | NUR ---
RECEIVED BEDSIDE REPORT FROM NIGHT NURSE. PT ASLEEP, AROUSABLE TO SPEECH, AAOX3. RESPIRATIONS EVEN AND UNLABORED ON ROOM AIR. IV IN PLACE R AC PATENT, INTACT AND ASYMPTOMATIC INFUSING PER ORDER. WOUND PRESENT ON RIGHT LEG AND LEFT TOE. SAFETY MEASURES IN PLACE. BED IN LOW POSITION. CALL LIGHT WITHIN REACH. WILL CONTINUE TO MONITOR.
[2019-04-18 07:50] LABS: ANION GAP 14.5 (8-16); CARBON DIOXIDE 26.6 mmol/L (21-32); POTASSIUM 3.1 mmol/L (3.5-5.1)
[2019-04-18 08:00] VITALS: BP 171/71
--- NOTE | 2019-04-18 08:27 | NUR ---
PATIENT HAS BEEN SCREENED AND CATEGORIZED MODERATE NUTRITION RISK. PATIENT WILL BE SEEN WITHIN 3-5 DAYS OF ADMISSION. 04/21/[address]
[2019-04-18 08:42] LABS: CREATININE 4.3 mg/dL (0.7-1.3)
[2019-04-18] MEDS ORDERED: POLYETHYLENE GLYCOL 17 GM/PKT PO SCH (09:00)
[2019-04-18] MEDS: POLYETHYLENE GLYCOL 17 GM/PKT PO SCH ×4 (09:11→22:00)
[2019-04-18] MEDS: MAGNESIUM HYDROXIDE 2400 MG/30 ML UDC PO SCH (09:16)
[2019-04-18] MEDS: DOCUSATE SODIUM 100 MG GELCAP PO SCH ×2 (09:17→21:59)
[2019-04-18] MEDS: GABAPENTIN 300 MG CAP PO SCH (09:17)
[2019-04-18] MEDS: glipiZIDE 10 MG TAB PO SCH ×2 (09:18→21:59)
[2019-04-18] MEDS: METOPROLOL 25 MG TAB PO SCH ×2 (09:19→22:00)
[2019-04-18] MEDS: TAMSULOSIN 0.4 MG CAP PO SCH (09:19)
[2019-04-18] MEDS: SIMVASTATIN 40 MG TAB PO SCH (09:19)
[2019-04-18] MEDS: amLODIPine 5 MG TAB PO SCH (09:19)
[2019-04-18] MEDS: SENNA 8.6 MG TAB PO SCH ×3 (09:19→16:07)
[2019-04-18] MEDS: LACTOBACILLUS RHAMNOSUS GG 1 EACH CAP PO SCH (09:20)
--- NOTE | 2019-04-18 09:26 | NUR ---
MEDICATIONS ADMINISTERED PER ORDER. PT TOLERATED WELL. NO DISTRESS NOTED. PT DENIES PAIN. WILL CONTINUE TO MONITOR.
[2019-04-18] MEDS ORDERED: POTASSIUM CHLORIDE 10 MEQ TABER PO SCH (10:30)
[2019-04-18] MEDS ORDERED: LOSARTAN 50 MG TAB PO SCH (11:00)
[2019-04-18] MEDS: INSULIN LANTUS 100 UNITS/ML 10 ML VIAL SUBQ SCH (11:07)
[2019-04-18] MEDS: PETROLATUM WHITE 30 GM TUBE TP SCH ×2 (11:10→21:00)
--- NOTE | 2019-04-18 11:47 | NUR ---
MEDICATIONS ADMINISTERED PER ORDER. PT TOLERATED WELL. NO DISTRESS NOTED. WILL CONTINUE TO MONITOR.
[2019-04-18 12:00] VITALS: BP 140/71
[2019-04-18] MEDS ORDERED: FUROSEMIDE 20 MG/2 ML VIAL IVP SCH (14:00)
[2019-04-18] MEDS ORDERED: MAGNESIUM CITRATE 300 ML BTL PO SCH (14:00)
[2019-04-18] MEDS ORDERED: BOWEL EVACUANT DRINK 4,000 ML PDS PO SCH (14:00)
[2019-04-18] MEDS: HYDROcodone/APAP 7.5/325 MG 1 TAB PO PRN ×2 (14:45→22:18)
--- NOTE | 2019-04-18 14:45 | NUR ---
MEDICATIONS ADMINISTERED PER ORDER. PT REQUESTS PAIN MEDICATION, PRN NORCO GIVEN AT THIS TIME. CONSENT FOR COLONOSCOPY SIGNED BY DAUGHTER JACKIE. ASSISTED FELLING MACHINE OPERATOR IN CLEANING AND CHANGING PT IN BED. BEDSIDE COMMODE PUT AT BEDSIDE FOR PT TO USE WITH ASSISTANCE IN PREPARATION FOR COLONOSCOPY.
[2019-04-18 16:00] VITALS: BP 174/81
[2019-04-18] MEDS ORDERED: POTASSIUM CHLORIDE 20% 40 MEQ/15 ML UDC PO SCH (16:00)
--- NOTE | 2019-04-18 16:58 | NUR ---
MEDICATIONS ADMINISTERED PER ORDER. PT TOLERATED WELL. WILL CONTINUE TO MONITOR.
--- NOTE | 2019-04-18 19:04 | NUR ---
BEDSIDE REPORT GIVEN TO NIGHT NURSE FOR CONTINUITY OF CARE.
--- NOTE | 2019-04-18 19:05 | NUR ---
RECD. RESTING IN BED, AWAKE, A/OX2, WITH FORGETFULNESS. RESPIRATION EVEN AND UNLABORED. IV OF NS AT 100 ML/HR INFUSING, RIGHT AC G20. NOTED DECREASED DISTENSION IN THE ABDOMEN. F/C PATENT DRAINING CLEAR YELLOW URINE. BILATERAL PITTING EDEMA 1 - 2 + ON BILATERAL LOWER EXTREMITIES. NOTED DISCOLORATION AND VERY DRY FLAKY SKIN AND HEALED WOUND ON THE RIGHT LOWER EXTREMITY, LEFT BIG TOE WITH DTI. PLAN FO CARE FOR THE SHIFT DISCUSSED. NEEDS REINFORCEMENT. DENIES PAIN 0/10.
--- NOTE | 2019-04-18 19:30 | NUR ---
Patient's Plan of Care was discussed and reviewed with CADET DECK: MICKEY
[2019-04-18 20:00] VITALS: BP 154/63
--- NOTE | 2019-04-18 20:09 | NUR ---
RECEIVED PATIENT ON ROOM AIR, PULSE OX SAT 95%. SCHEDULED BREATHING TREATMENT ADMINISTERED. TOLERATED TX WELL WITHOUT ADVERSE SIDE EFFECTS. EDUCATED PATIENT ON USE OF INCENTIVE SPIROMETRY EQUIPMENT. PATIENT PERFORMED RETURNED DEMONSTRATION WITH FAIR EFFORT. NO ACUTE RESPIRATORY DISTRESS NOTED AT THIS TIME. WILL CONTINUE TO MONITOR.
--- NOTE | 2019-04-18 21:45 | NUR ---
STARTED GOLYTELY, PATIENT ABLE TO DRINK BUT WANTS NURSE TO COME BACK LATER TO FINISH A CUP OF THE MEDICINE.
--- NOTE | 2019-04-18 22:10 | NUR ---
SPOKE WITH DR. MONTERO, PATIENT IS FOR COLONOSCOPY TOMORROW IF WE CAN HOLD HEPARIN, STATED IT IS OK TO GIVE LONG PATIENT IS NOT BLEEDING.
[2019-04-19] VITALS: BP 136/79
--- NOTE | 2019-04-19 | NUR ---
SLEEPING COMFORTABLY IN BED.
--- NOTE | 2019-04-19 03:00 | NUR ---
HAD LARGE AND MODERATE LOOSE BM. SINCE BEGINNING OF SHIFT.
[2019-04-19 04:00] VITALS: BP 174/84
[2019-04-19] MEDS: PIPERACILLIN/TAZOBACTAM 2.25 GM in DEXTROSE 5% 50 ML IV SCH ×2 (04:08→13:15)
[2019-04-19] MEDS: BLOOD GLUCOSE MONITORING 1 DEV DEV FS SCH ×4 (04:55→22:14)
--- NOTE | 2019-04-19 05:00 | NUR ---
HAD ANOTHER LOOSE BM. PATIENT BM IS NOT CLEAR.
[2019-04-19 06:34] LABS: BASOPHILS # (AUTO) 0.1 K/uL (0.00-0.22); BASOPHILS % (AUTO) 0.8 % (0.0-2.0); EOSINOPHILS # (AUTO) 0.5 K/uL (0-0.4); EOSINOPHILS % (AUTO) 6.8 % (0.0-4.0); HEMATOCRIT 31.5 % (36-52); HEMOGLOBIN 10.3 g/dL (12.0-18.0); LYMPHOCYTES # (AUTO) 0.9 K/uL (2.0-11.5); LYMPHOCYTES % (AUTO) 12.2 % (20.5-51.1); MEAN CORPUSCULAR HEMOGLOBIN 28 pg (27-31); MEAN CORPUSCULAR HGB CONC 33 g/dL (33-37); MEAN CORPUSCULAR VOLUME 86.2 fL (80-94); MONOCYTES # (AUTO) 0.7 K/uL (0.8-1.0); MONOCYTES % (AUTO) 9.5 % (1.7-9.3); NEUTROPHILS # (AUTO) 5.5 K/uL (1.8-7.7); NEUTROPHILS % (AUTO) 70.7 % (42.2-75.2); PLATELET COUNT (AUTO) 310 K/uL (140-450); RED BLOOD CELL COUNT(AUTO) 3.66 MIL/uL (4.20-6.10); WHITE BLOOD COUNT (AUTO) 7.8 K/uL (4.8-10.8)
[2019-04-19 06:52] LABS: ANION GAP 14.7 (8-16); CARBON DIOXIDE 25.7 mmol/L (21-32); POTASSIUM 3.4 mmol/L (3.5-5.1)
[2019-04-19 06:56] LABS: CREATININE 4.1 mg/dL (0.7-1.3)
--- NOTE | 2019-04-19 07:25 | NUR ---
ENDORSED TO AM SHIFT NURSE FOR CONTINUITY OF CARE.
--- NOTE | 2019-04-19 07:46 | NUR ---
RECEIVED REPORT FROM STATION ENGINEER CHIEF RN. PATIENT ON ROOM AIR, PULSE OX SAT 95%. SCHEDULED BREATHING TREATMENT ADMINISTERED. TOLERATED TX WELL WITHOUT ADVERSE SIDE EFFECTS. EDUCATED PT ON IMPORTANCE OF DRINKING ALL BOWEL PREP LEFT AT BEDSIDE. PT VERBALIZED UNDERSTANDING OF TEACHING. DISCUSSED POC WITH PT AND PT VERBALIZED UNDERSTANDING. NO ACUTE RESPIRATORY DISTRESS NOTED AT THIS TIME. BED IN LOW POSITION, CALL LIGHT WITHIN REACH. WILL ROUND FREQUENTLY ON PT.
[2019-04-19 08:05] VITALS: BP 165/75
[2019-04-19 08:19] LABS: MAGNESIUM 2.6 mg/dL (1.8-2.4); PHOSPHORUS 4.9 mg/dL (2.5-4.9)
[2019-04-19] MEDS ORDERED: POTASSIUM CHLORIDE 10 MEQ TABER PO SCH (09:00)
[2019-04-19] MEDS: DOCUSATE SODIUM 100 MG GELCAP PO SCH ×2 (09:12→21:00)
[2019-04-19] MEDS: TAMSULOSIN 0.4 MG CAP PO SCH (09:12)
[2019-04-19] MEDS: LOSARTAN 50 MG TAB PO SCH (09:13)
[2019-04-19] MEDS: glipiZIDE 10 MG TAB PO SCH ×2 (09:13→20:28)
[2019-04-19] MEDS: amLODIPine 5 MG TAB PO SCH (09:14)
[2019-04-19] MEDS: SENNA 8.6 MG TAB PO SCH ×2 (09:14→13:15)
[2019-04-19] MEDS: GABAPENTIN 300 MG CAP PO SCH (09:15)
[2019-04-19] MEDS: METOPROLOL 25 MG TAB PO SCH ×2 (09:15→20:23)
[2019-04-19] MEDS: SIMVASTATIN 40 MG TAB PO SCH (09:15)
[2019-04-19] MEDS: LACTOBACILLUS RHAMNOSUS GG 1 EACH CAP PO SCH (09:16)
[2019-04-19] MEDS: MAGNESIUM HYDROXIDE 2400 MG/30 ML UDC PO SCH (09:16)
[2019-04-19] MEDS: POLYETHYLENE GLYCOL 17 GM/PKT PO SCH ×2 (09:16→13:15)
[2019-04-19] MEDS: INSULIN LANTUS 100 UNITS/ML 10 ML VIAL SUBQ SCH (09:17)
[2019-04-19] MEDS: PETROLATUM WHITE 30 GM TUBE TP SCH ×2 (09:18→22:14)
--- NOTE | 2019-04-19 09:24 | NUR ---
ADMINISTERED MORNING MEDS TO PT. PT TOLERATED WELL. WILL CONTINUE TO ROUND FREQUENTLY ON PT. BED IN LOW POSITION, CALL LIGHT WITHIN REACH.
--- NOTE | 2019-04-19 10:59 | NUR ---
WOUND CARE EVALUATION NOTE: REASON FOR EVALUATION: RLE WOUND SKIN ASSESSMENT DONE WITH THIS 68 Y/O MALE PT ADMITTED TO [facility] WITH CHRONIC VASCULAR ULCER TO RIGHT LOWER LEG. PT. IS AAX4,PT SKIN IS WARM AND DRY. BLE NO HAIR GROWTH, BLE +1 EDEMA. WOUND CARE TEACHING DONE WITH PT. PT. VERBALIZES UNDERSTANDING, PLAN OF CARE DISCUSSED WITH PRIMARY RN. INTEGUMENTARY: -RLE VASCULAR ULCER WITH DRY XEROSIS SKIN TO MANSAA WOUND SKIN, WOUND BED IS PALE PINK WITH IMMATURE SCAR/ REMODELING STAGE 5X7CM, NO ODOR, WOUND EDGE FLAT WITH MANASA WOUND SKIN INTACT -MULTIPLE SCABS TO RIGHT UPPER THIGH 0.5X0.5CM AND LEFT HALLUX AT PLANTAR AREA 1.7X2 CM, MANASA WOUNDS DRY AND CLEAN, INTACT. RECOMMENDATIONS: -CLEANSE RIGHT LOWER LEG WOUND WITH NS, PAT DRY, APPLY VASELINE DRESSING, COVER WITH DRY DRESSING AND WRAP WITH KERLIX ROLLS QM-W-F AND PRN IF SOILING -CLEANSE MULTIPLE SCABS TO RIGHT UPPER THIGH AND LEFT HALLUX WITH NS, PAT DRY, PAINT WITH BETADINE SOLUTION BID AND INEZ -OFFLOAD BILATERAL HEELS BY PLACING PILLOWS UNDER CALVES UNLESS OTHERWISE CONTRAINDICATED -PRESSURE REDISTRIBUTION SURFACE -TURN AND REPOSITION Q2H, OFFLOAD SACROCOCCYX -MAY DISCHARGE WITH WOUND CARE SUPPLIES PLEASE CONTACT WOUND CARE NURSE FOR ANY QUESTION AND CHANGE OF WOUND CONDITION.
--- NOTE | 2019-04-19 11:25 | NUR ---
PT RESTING IN BED. ALL NEEDS MET. WILL CONTINUE TO ROUND FREQUENTLY ON PT. BED IN LOW POSITION, CALL LIGHT WITHIN REACH.
[2019-04-19 12:05] VITALS: BP 155/75
[2019-04-19] MEDS: GAUZE TP SCH (13:16)
[2019-04-19] MEDS: NON ADHERENT DRESSING TP SCH (13:16)
--- NOTE | 2019-04-19 13:24 | NUR ---
PT RESTING IN BED. PT HAD LARGE BOWEL MOVEMENT AND WAS CHANGED AND REPOSITIONED. ALL NEEDS MET. WILL CONTINUE TO ROUND FREQUENTLY ON PT. BED IN LOW POSITION, CALL LIGHT WITHIN REACH.
[2019-04-19] MEDS: INSULIN LISPRO SLIDING SCALE 100 UNITS/ML VIAL SUBQ PRN ×2 (13:26→22:20)
[2019-04-19] MEDS: ALBUTEROL SULFATE/IPRATROPIU 3 ML SOL IH SCH ×2 (13:43→19:40)
[2019-04-19] MEDS ORDERED: FUROSEMIDE 40 MG/4 ML VIAL IVP SCH (15:00)
[2019-04-19] MEDS ORDERED: diphenhydrAMINE 50 MG/ML VIAL ONE (15:26)
[2019-04-19] MEDS ORDERED: fentaNYL 0.05 MG/ML VIAL ONE (15:26)
[2019-04-19] MEDS ORDERED: MIDAZOLAM 2 MG/2 ML VIAL ONE (15:26)
[2019-04-19] MEDS ORDERED: MIDAZOLAM 2 MG/2 ML VIAL IVP ONE (15:34)
[2019-04-19] MEDS ORDERED: fentaNYL 0.05 MG/ML VIAL IVP ONE (15:36)
[2019-04-19 16:00] VITALS: BP 134/70
--- NOTE | 2019-04-19 16:05 | NUR ---
PT RETURNED FROM COLONOSCOPY. VITALS STABLE AT THIS TIME. PER , COLONOSCOPY WAS NORMAL.
--- NOTE | 2019-04-19 18:25 | NUR ---
PT HAVING DINNER. ALL NEEDS MET. WILL CONTINUE TO ROUND FREQUENTLY ON PT.
--- NOTE | 2019-04-19 19:29 | NUR ---
ENDORSED PT TO IMPOSER FOR CONTINUITY OF CARE. PT IN STABLE CONDITION.
--- NOTE | 2019-04-19 19:51 | NUR ---
RECEIVED PATIENT ON ROOM AIR, PULSE OX SAT 95%. SCHEDULED BREATHING TREATMENT ADMINISTERED. TOLERATED TX WELL WITHOUT ADVERSE SIDE EFFECTS. INCENTIVE SPIROMETRY PERFORMED WITH FAIR EFFORT. NO ACUTE RESPIRATORY DISTRESS NOTED AT THIS TIME. WILL CONTINUE TO MONITOR.
[2019-04-19 20:19] VITALS: BP 176/87
--- NOTE | 2019-04-19 20:25 | NUR ---
SEEN PT AWAKE, ALERT AND ORIENTED APPEARS ASLEEP BUT EASILY AROUSABLE. INITIAL ASSESSMENT DONE. VITAL SIGNS CHECKED. BP LEFT ARM:176/87, PT'S RIGHT ARM HAS THE IV ACCESS. PT DENIES ANY DISCOMFORT. METOPROLOL GIVEN ORDERED. WILL RECHECK BP. SCHEDULED MEDICATIONS GIVEN W/ TEACHINGS. PT STATES HE NEEDS TO BE CLEAN. WILL INFORM AUTISM TEACHER. INFORMED PT THAT HIS BLOOD SUGAR WILL BE CHECK LATER SINCE HE ATE DINNER LATE. PT VERBALIZED UNDERSTANDING. CALL LIGHT WIN REACH. BED ALARM TURNED ON.
--- NOTE | 2019-04-19 20:26 | NUR ---
PT'S IV ACCESS APPEARS PUFFY. PALPATED IV ACCESS, PT DENIES ANY PAIN. ENCOURAGED TO ELEVATE RIGHT ARM. IVF DISCONNECTED. WILL CONTINUE TO MONITOR.
--- NOTE | 2019-04-19 22:10 | NUR ---
SEEN PT APPEARS ASLEEP W/ BLANKET COVERING HIS HEAD. BLOOD SUGAR CHECKED:192. WILL COVER W/ SLIDING SCALE INSULIN. PT REFUSED COLACE SINCE HE'S STILL HAVING LOOSE STOOL FROM THE BOWEL PREP. PT STATES "I THINK I NEED TO BE CLEANED." PT'S BP RECHECKED:174/83. PT DENIES ANY DISCOMFORT. PARAMETER FOR PT'S PRN MEDICATION FOR ELEVATED BP IS ABOVE 180. WILL RECHECKED BP AGAIN. PT DENIES ANY OTHER NEEDS.
--- NOTE | 2019-04-19 22:20 | NUR ---
PT HAD MUCOID-LIKE STOOL. PERICARE RENDERED. PT REPOSITIONED FOR COMFORT. CALL LIGHT W/IN REACH. WILL CONTINUE TO MONITOR.
[2019-04-20] VITALS: BP 172/82
--- NOTE | 2019-04-20 01:55 | NUR ---
PT CALLED ASKING FOR SLEEPING PILL. INFORMED HIM MD NEEDS TO BE NOTIFIED SINCE HE DOESN'T HAVE ORDER FOR SLEEPING PILL. PT VERBALIZED UNDERSTANDING.
--- NOTE | 2019-04-20 02:00 | NUR ---
CALLED AND NOTIFIED DR CABALLERO REGARDING PT ASKING FOR SLEEPING PILL. HE SAID "OK, I'LL PUT THE ORDER IN."
[2019-04-20] MEDS: GAUZE TP SCH ×2 (02:30→12:50)
--- NOTE | 2019-04-20 02:33 | NUR ---
SEEN PT W/ HIS HEAD COVERED W/ BLANKET. PT GIVEN TRAZODONE FOR SLEEP ORDERED. TEACHINGS PROVIDED. PT ASKING IF HE'S GOING TO GET IT TONIGHT TOO IN CASE HE CAN'T SLEEP. INFORMED HIM TO TELL HIS NURSE EARLY SO MD CAN BE NOTIFIED. PT VERBALIZED UNDERSTANDING. CALL LIGHT WIN REACH. PT DENIES ANY OTHER NEEDS.
[2019-04-20] MEDS ORDERED: traZODone 50 MG TAB PO SCH (03:00)
[2019-04-20 04:15] VITALS: BP 180/82
--- NOTE | 2019-04-20 04:15 | NUR ---
SEEN PT ASLEEP. VITAL SIGNS CHECKED. SB=718/82. PT COMPLAINING OF BACK PAIN. WILL MEDICATE FOR ELEVATED BP AND PAIN WELL. PT ASKING FOR WARM BLANKET. CALL LIGHT W/IN REACH.
[2019-04-20 06:19] LABS: ANION GAP 16.4 (8-16); CARBON DIOXIDE 23.9 mmol/L (21-32); POTASSIUM 3.3 mmol/L (3.5-5.1)
--- NOTE | 2019-04-20 06:24 | NUR ---
RECEIVED CALL FROM LAB REGARDING BUN OF 65 AND CREA 4.0. WILL NOTIFY
[2019-04-20 06:27] LABS: BASOPHILS # (AUTO) 0.1 K/uL (0.00-0.22); BASOPHILS % (AUTO) 0.6 % (0.0-2.0); EOSINOPHILS # (AUTO) 0.4 K/uL (0-0.4); EOSINOPHILS % (AUTO) 4.4 % (0.0-4.0); HEMATOCRIT 31.2 % (36-52); HEMOGLOBIN 10.2 g/dL (12.0-18.0); LYMPHOCYTES # (AUTO) 0.9 K/uL (2.0-11.5); LYMPHOCYTES % (AUTO) 10.1 % (20.5-51.1); MEAN CORPUSCULAR HEMOGLOBIN 28 pg (27-31); MEAN CORPUSCULAR HGB CONC 33 g/dL (33-37); MEAN CORPUSCULAR VOLUME 85.1 fL (80-94); MONOCYTES # (AUTO) 0.8 K/uL (0.8-1.0); MONOCYTES % (AUTO) 8.3 % (1.7-9.3); NEUTROPHILS % (AUTO) 76.6 % (42.2-75.2); PLATELET COUNT (AUTO) 332 K/uL (140-450); RED BLOOD CELL COUNT(AUTO) 3.67 MIL/uL (4.20-6.10); RED CELL DISTRIBUTION WIDTH 14.3 % (11.6-13.7); WHITE BLOOD COUNT (AUTO) 9.2 K/uL (4.8-10.8)
[2019-04-20 06:31] LABS: MAGNESIUM 2.6 mg/dL (1.8-2.4); PHOSPHORUS 3.9 mg/dL (2.5-4.9)
[2019-04-20] MEDS: ALBUTEROL SULFATE/IPRATROPIU 3 ML SOL IH SCH ×2 (06:35→14:06)
--- NOTE | 2019-04-20 07:00 | NUR ---
AWAKEN PT. BLOOD SUGAR CHECKED:127. NO COVERAGE NEEDED. PT DENIES ANY PAIN. CALL LIGHT W/IN REACH.
[2019-04-20] MEDS: BLOOD GLUCOSE MONITORING 1 DEV DEV FS SCH ×3 (07:02→16:43)
--- NOTE | 2019-04-20 07:20 | NUR ---
REPORT GIVEN TO DAYSHIFT NURSE FOR CONTINUITY OF CARE.
--- NOTE | 2019-04-20 07:21 | NUR ---
RECEIVED BEDSIDE REPORT FROM CPHT NURSE. PATIENT IS AWAKE, ALERT AND ORIENTEDX3. NO SIGNS OF DISTRESS ON RA. SKIN HAS R WATSON WOUND AND L TOE WOUND. IV ON R AC 20G SL. CLEAN, DRY AND INTACT. TELE MONITOR IN PLACE. PATIENT IS BEDREST. FALL RISK PROTOCOL IN PLACE. PATIENT HAS A DOYLE. ABLE TO MAKE NEEDS KNOWN. BED IN LOW POSITION. CALL LIGHT WITHIN REACH. WILL CONTINUE TO MONITOR
[2019-04-20] MEDS ORDERED: POTASSIUM CHLORIDE 10 MEQ TABER PO SCH (07:30)
[2019-04-20 08:00] VITALS: BP 162/62
[2019-04-20] MEDS: DOCUSATE SODIUM 100 MG GELCAP PO SCH (08:19)
[2019-04-20] MEDS: LOSARTAN 50 MG TAB PO SCH (08:20)
[2019-04-20] MEDS: SIMVASTATIN 40 MG TAB PO SCH (08:20)
[2019-04-20] MEDS: METOPROLOL 25 MG TAB PO SCH (08:20)
[2019-04-20] MEDS: glipiZIDE 10 MG TAB PO SCH (08:20)
[2019-04-20] MEDS: amLODIPine 5 MG TAB PO SCH (08:20)
[2019-04-20] MEDS: GABAPENTIN 300 MG CAP PO SCH (08:20)
[2019-04-20] MEDS: LACTOBACILLUS RHAMNOSUS GG 1 EACH CAP PO SCH (08:21)
[2019-04-20] MEDS: TAMSULOSIN 0.4 MG CAP PO SCH (08:21)
[2019-04-20] MEDS: MAGNESIUM HYDROXIDE 2400 MG/30 ML UDC PO SCH (08:21)
[2019-04-20] MEDS ORDERED: LOSA50TA57 PO (08:29)
[2019-04-20] MEDS: INSULIN LANTUS 100 UNITS/ML 10 ML VIAL SUBQ SCH (08:30)
[2019-04-20] MEDS ORDERED: AMLO5TAB PO (08:31)
[2019-04-20] MEDS: PETROLATUM WHITE 30 GM TUBE TP SCH (08:32)
--- NOTE | 2019-04-20 08:32 | NUR ---
ADMINISTERED MEDS. PATIENT TOLERATED WELL. EDUCATED ON SIDE EFFECTS. WILL CONTINUE TO MONITOR THE PATIENT.
[2019-04-20] MEDS ORDERED: LACT10SO1 PO (08:33)
--- NOTE | 2019-04-20 10:24 | NUR ---
PATIENT GETTING A HEAD TO TOE EXAM BY STUDENT. PATIENT SHOWS NO SIGNS OF DISTRESS. WILL CONTINUE TO MONITOR
--- NOTE | 2019-04-20 11:57 | NUR ---
PATIENT DOES NOT WANT TO GO BACK TO [facility], HE SAID HE WANTS TO GO BACK HOME TO HIS SISTERS HOUSE. CALLED HIS SISTER ROLO AT [phone]. SHE SAID HE NEEDS TO GO BACK TO [facility]. PATIENT IS SPEAKING TO HIS SISTER ON THE PHONE AT THIS TIME
[2019-04-20 12:00] VITALS: BP 163/77
[2019-04-20] MEDS: INSULIN LISPRO SLIDING SCALE 100 UNITS/ML VIAL SUBQ PRN (12:50)
[2019-04-20] MEDS: NON ADHERENT DRESSING TP SCH (12:51)
[2019-04-20] MEDS ORDERED: CYCLOBENZAPRINE 10 MG TAB PO SCH (13:00)
--- NOTE | 2019-04-20 13:06 | NUR ---
Clinicals faxed to [facility] .
--- NOTE | 2019-04-20 13:33 | NUR ---
FAMILY DOES NOT AGREE TO LET PATIENT GO BACK TO THEIR HOUSE. PATIENT AGREED TO GO TO [facility]. NO COMPLAINTS AT THIS TIME. WILL CONTINUE TO MONITOR THE PATIENT
--- NOTE | 2019-04-20 14:36 | NUR ---
Spoke with Velma BARON. Transportation AUTH # [id number] [facility] AUTH # [id number].
--- NOTE | 2019-04-20 14:40 | NUR ---
Spoke with Mark from [facility] and pt is going to room 15 B per Mark. Gave Mark the [facility] AUTH #[id number].
--- NOTE | 2019-04-20 14:48 | NUR ---
Transportation arranged with [facility] . Pt will be picked up at 1800 and transported to [facility] to room 15B. Notified Morris Mancilla RN/GLADYS.
--- NOTE | 2019-04-20 14:53 | NUR ---
PATIENT IS SLEEPING. NO SIGNS OF DISTRESS. WILL CONTINUE TO MONITOR THE PATIENT.
--- NOTE | 2019-04-20 15:12 | NUR ---
Accepting MD in [facility] is Dr. Mccollum.
[2019-04-20 16:00] VITALS: BP 172/81
[2019-04-20] MEDS ORDERED: hydrALAZINE 20 MG/ML VIAL IVP SCH (16:49)
--- NOTE | 2019-04-20 17:14 | NUR ---
ADMINISTERED SEYMOUR HYDRALAZINE. EDUCATED PATIENT ON SIDE EFFECTS. NO SIGNS OF DISTRESS. WILL CONTINUE TO MONITOR
--- NOTE | 2019-04-20 17:35 | NUR ---
GAVE TELEPHONE REPORT TO LEODAN FROM [facility]. SHE SAID SHE IS AN AID BUT THAT SHE WAS THE ONLY PERSON I CAN GIVE REPORT TO. SHE SAID SHE HAS NO TOPSTITCHER ZIGZAG OR NURSE AVAILABLE TO TALK TO ME. I ASKED TO SPEAK TO TRUMAN AND SHE SAID HE IS GONE. I ASKED TO SPEAK TO MYRA THE TOPSTITCHER ZIGZAG BUT SHE SAID HE IS UNAVAILABLE. BARTOLOMEMatthew SAID SHE WILL RECEIVE REPORT, GAVE AID A TELEPHONE REPORT AND ANSWERED ALL QUESTIONS AT THIS TIME.
--- NOTE | 2019-04-20 17:52 | NUR ---
DOYLE REMOVED. TOLERATED WELL. PATIENT REFUSED TO TAKE BANDAGE OFF AND DID NOT ALLOW ME TO TAKE A PHOTO OF WOUNDS.
[2019-04-20] MEDS ORDERED: HYDROcodone/APAP 5/325 MG 1 TAB TAB PO SCH (17:53)
[2019-04-20 18:12] VITALS: BP 170/79
--- NOTE | 2019-04-20 19:11 | NUR ---
gave bedside report to orange picking supervisor nurse. patient endorsed in stable condition. endorsed charge nurse to remove IV at d/c and id bands
--- NOTE | 2019-04-20 19:40 | NUR ---
DISCHARGE PATIENT TO [facility] VIA [facility] AWAKE,ALERT AND ORIENTED,NORESPIRATORY DISTRESS NOTED.
== END 2019-04-20 19:40 | DRG 393 ==
LOC: MED 21:19 → MTU 04-17 03:01
PROVIDERS: ADMIT General Practice; ATTEND General Practice
PROC: 0DJD8ZZ Inspection of Lower Intestinal Tract, Via Natural or Artificial Opening Endoscopic (ICD-10-PCS; principal; 2019-04-19 14:55)
DX: K63.89 Other specified diseases of intestine (principal); I50.43 Acute on chronic combined systolic (congestive) and diastolic (congestive) heart failure; N17.0 Acute kidney failure with tubular necrosis; E43 Unspecified severe protein-calorie malnutrition; G93.40 Encephalopathy, unspecified; I13.0 Hypertensive heart and chronic kidney disease with heart failure and stage 1 through stage 4 chronic kidney disease, or unspecified chronic kidney disease; N18.4 Chronic kidney disease, stage 4 (severe); K56.609 Unspecified intestinal obstruction, unspecified as to partial versus complete obstruction; K56.41 Fecal impaction; E11.22 Type 2 diabetes mellitus with diabetic chronic kidney disease; F03.90 Unspecified dementia, unspecified severity, without behavioral disturbance, psychotic disturbance, mood disturbance, and anxiety; I50.810 Right heart failure, unspecified; E11.65 Type 2 diabetes mellitus with hyperglycemia; N40.0 Benign prostatic hyperplasia without lower urinary tract symptoms; E78.5 Hyperlipidemia, unspecified; E87.6 Hypokalemia; L70.0 Acne vulgaris; I87.2 Venous insufficiency (chronic) (peripheral); Z68.26 Body mass index [BMI] 26.0-26.9, adult; Z79.891 Long term (current) use of opiate analgesic; Z79.4 Long term (current) use of insulin
CPT/HCPCS: 36415; 71045; 74018; 76770; 80048; 80053; 81001; 82272; 82550; 82948; 83036; 83605; 83690; 83735; 83880; 84100; 84443; 84484; 85025; 85610; 85730; 87040; 87081; 87086; 93005; 94640; 96374; 96375; 97116; 97161-GP; 97530; 99285; J0360; J1200; J1644; J1815; J1940; J2250; J2270; J2405; J2543; J2765; J3010; J7030; J7060; J7620; Q0092

== ENCOUNTER 2019-05-08 22:26 | Emergency (ER) | payer OTHER ==
[~2019-05-08] VITALS: Ht 170.2 cm; Wt 79.4 kg
[~2019-05-08 22:26] MED LIST changes: +LACT10SO1 PO; +LOSA50TA57 PO
--- NOTE | 2019-05-08 22:29 | NUR ---
PT TETE BLS. TAKEN TO BED 7
[2019-05-08 22:35] VITALS: BP 149/65
--- NOTE | 2019-05-08 22:39 | NUR ---
PT BIBA BLS FROM [facility] WITH C/O NEW ONSET BILATERAL HAND AND ARM TREMORS THAT STARTED THIS MORNING. PT IS BEING TREATED FOR UTI AT THIS TIME. BILATERAL ARM SWELLING WELL BILATERAL PEDAL EDEMA. BILATERAL LOWER EXTREMITIES HAS BROKEN, FLAKEY SKIN. PT HAS FULL RANGE OF MOTION X4 EXTREMITIES. RR EVEN AND UNLABORED. GLUCOSE 186 PER EMS. VSS. MEDHX: DM, HTN, RENAL DISEASE, HYPERLIPIDEMA, ANXIETY, PACEMAKER, MUSCLE WASTING ALLERGIES: DENIES
--- NOTE | 2019-05-08 23:04 | NUR ---
Dr. Sloan examining patient.
--- NOTE | 2019-05-08 23:47 | NUR ---
Mariza amaya in [facility] - 05/08/19 at 2347 by SEBASTIAN PT TAKEN TO BED 7
--- NOTE | 2019-05-08 23:47 | NUR ---
PT TAKEN TO CT
--- NOTE | 2019-05-09 00:02 | NUR ---
PT RETURN FROM CT
--- NOTE | 2019-05-09 01:11 | NUR ---
PT RESTING IN BED POSITIONED FOR COMFORT. VISIBLE RISE AND FALL OF CHEST. VSS. BED LOCKED AND IN LOW POSITION. NO COMPLAINTS OF PAIN. WILL CONTINUE TO MONITOR.
--- NOTE | 2019-05-09 02:46 | NUR ---
PT LAYING IN BED WITH VISIBLE RISE AND FALL OF THE CHEST. PT AROUSABLE TO NAME AND ABLE TO ANSWER QUESTIONS PROPERLY. VSS. WILL CONTINUE TO MONITOR.
--- NOTE | 2019-05-09 03:58 | NUR ---
[facility] ETA FOR PT 0900. PHONE NUMBER
--- NOTE | 2019-05-09 05:15 | NUR ---
PT RESTING WITH EYES CLOSED POSITIONED FOR COMFORT. VISIBLE RISE AND FALL OF CHECK. RR EVEN AND UNLABORED. PT AROUSABLE TO NAME. VSS.
--- NOTE | 2019-05-09 07:06 | NUR ---
REPORT GIVEN TO LUIS MARTIN. TRANSFER OF CARE AT THIS TIME.
--- NOTE | 2019-05-09 07:07 | NUR ---
ASSUMED CARE OF PT FROM LUIS BELTRAN. PT SLEEPING BUT ALERT TO VERBAL STIMULI. OFFERED BREAKFAST TRAY. SLIGHT TREMOR NOTED TO R ARM. WILL CONTINUE TO MONITOR.
--- NOTE | 2019-05-09 08:00 | NUR ---
PT CLEANED, LARGE BM NOTED. NEW DIAPER, SHEETS, AND BLANKET PROVIDED. PT POSITIONED AND NOW EATING BREAKFAST TRAY WITHOUT DIFFICULTY. WILL CONTINUE TO MONITOR.
--- NOTE | 2019-05-09 09:03 | NUR ---
RECEIVED REPORT FROM LUIS MARTIN. PER VERONICA, PATIENT IS WAITING FOR TRANSPORT TO SENIOR TAX ACCOUNTANT TO TAKE HIM BACK TO FACILITY; ALL INTERVENTIONS HAVE BEEN COMPLETED.
--- NOTE | 2019-05-09 09:05 | NUR ---
REPORT TO LUIS MILLER. ALL CARE TRANSFERED AT THIS TIME.
--- NOTE | 2019-05-09 09:47 | NUR ---
[facility] AT BEDSIDE; PATIENT IN TRANSPORT [facility].
--- NOTE | 2019-05-09 09:48 | NUR ---
Patient discharged with v/s stable. Written and verbal after care instructions given and explained. Patient verbalized understanding. PICKED UP BY [facility] TO GO BACK TO [facility]. All questions addressed prior to discharge. Advised to follow up with PMD.
[2019-05-09 09:58] VITALS: BP 142/76
== END 2019-05-09 09:48 | disposition home or self-care (01) ==
LOC: MED 22:26
DX: R25.1 Tremor, unspecified (principal); E11.9 Type 2 diabetes mellitus without complications; I10 Essential (primary) hypertension; E78.5 Hyperlipidemia, unspecified; F41.9 Anxiety disorder, unspecified; Z95.0 Presence of cardiac pacemaker; Z79.899 Other long term (current) drug therapy; Z79.891 Long term (current) use of opiate analgesic
CPT/HCPCS: 70450; 99284

== ENCOUNTER 2019-06-24 16:57 | Inpatient (IN) | payer OTHER ==
[~2019-06-24] VITALS: Ht 175.3 cm; Wt 59.0 kg
[2019-06-24 17:13] VITALS: BP 131/74
--- NOTE | 2019-06-24 17:25 | NUR ---
PATIENT WHEELCHAIR ASSISTED TO BED 1.
--- NOTE | 2019-06-24 17:37 | NUR ---
69/M C/O WATERY, GEL LIKE DIARRHEA X1 MONTH, THAT GOT WORSE ABOUT 1 WEEK AGO. PT TEMP 100.1 AT THIS TIME. HX OF CDIFF, LAST ON ABX TX FOR CDIFF 1 WK BEFORE ROSA. 5X EPISODES OF NONBLOODY DIARRHEA TODAY. PAIN 10/10 AT ABD AND BACK. TAKING NORCO FOR CHRONIC BACK PAIN WHICH HELPS RELIEVE PAIN FOR A WHILE. FAMILY REPORTS PT HAS BEEN WEAK. PT DENIES ABD BLOATING BUT ABD IS DISTENDED. VSS; ERMD TO EVALUATE. HX: CHF, DM, RENAL FAILURE, HD (T,TH, SAT) LAST WAS YESTERDAY, DEMENTIA RX: SEE MED REC Addendum: 06/24/19 at 1741 by CHARLIE PER FAMILY PT IS STILL PRODUCING SOME URINE
--- NOTE | 2019-06-24 18:13 | NUR ---
NOTIFIED SIMULATION DEVELOPER THAT LAB NEEDS TO DRAW BLOOD ON PT
--- NOTE | 2019-06-24 19:07 | NUR ---
Pt report given to EMMETT SMITH. Transfer of care at this time.
[2019-06-24 19:43] LABS: BASOPHILS % (AUTO) 0.2 % (0.0-2.0); EOSINOPHILS % (AUTO) 0.3 % (0.0-4.0); HEMATOCRIT 35.2 % (36-52); HEMOGLOBIN 10.9 g/dL (12.0-18.0); LYMPHOCYTES % (AUTO) 9.4 % (20.5-51.1); MEAN CORPUSCULAR HEMOGLOBIN 28 pg (27-31); MEAN CORPUSCULAR HGB CONC 31 g/dL (33-37); MEAN CORPUSCULAR VOLUME 90.9 fL (80-94); MONOCYTES # (AUTO) 0.4 K/uL (0.8-1.0); MONOCYTES % (AUTO) 4.1 % (1.7-9.3); NEUTROPHILS # (AUTO) 9.2 K/uL (1.8-7.7); PLATELET COUNT (AUTO) 407 K/uL (140-450); RED BLOOD CELL COUNT(AUTO) 3.87 MIL/uL (4.20-6.10); RED CELL DISTRIBUTION WIDTH 18.9 % (11.6-13.7); WHITE BLOOD COUNT (AUTO) 10.8 K/uL (4.8-10.8)
--- NOTE | 2019-06-24 20:03 | NUR ---
CONTACT INFO KENDALL (SISTER): [phone]
[2019-06-24 20:04] LABS: ANION GAP 12.7 (8-16); CARBON DIOXIDE 29.6 mmol/L (21-32); CREATININE 2.3 mg/dL (0.7-1.3); TOTAL BILIRUBIN 0.3 mg/dL (0.0-1.0)
[2019-06-24 20:06] LABS: POTASSIUM 2.3 mmol/L (3.5-5.1)
--- NOTE | 2019-06-24 20:06 | NUR ---
CRITICAL LAB: K 2.3. MD BARNES AWARE.
[2019-06-24] MEDS ORDERED: MORPHINE SULFATE 4 MG/ML SYR IVP ONE (20:20)
[2019-06-24] MEDS ORDERED: KCL 20 MEQ/WATER INJ PREMIX 200 ML IV ONE (20:20)
[2019-06-24] MEDS ORDERED: NACL 0.9% 1,000 ML IV ONE (20:20)
[2019-06-24] MEDS ORDERED: MAG SULF 2000 MG/WATER PREMIX 50 ML IV PRN (20:35)
[2019-06-24] MEDS ORDERED: ONDANSETRON 4 MG/2 ML VIAL IVP PRN (20:35)
[2019-06-24] MEDS ORDERED: ACETAMINOPHEN 325 MG TAB PO PRN (20:35)
[2019-06-24] MEDS ORDERED: DEXTROSE 50% 50 ML SYR IVP PRN (20:45)
--- NOTE | 2019-06-24 21:50 | NUR ---
RECEIVED BEDSIDE REPORT FROM EMMETT PALOMINO RN. PT IS AAOX4. ON ROOM AIR. RESPIRATIONS ARE EQUAL AND UNLABORED. LUNG SOUNDS ARE CLEAR. SKIN IS INTACT. C/C DIARRHEA X1MO. HX C-DIFF. DX INFECTIOUS COLITIS, HYPOKALEMIA. K 2.3 ER ORDER 40MEQ K RIDER FIRST BAG IS INFUSING. ADMITTING MD ORDERED 160MEQ WILL CLARIFY. IV ON RAC 20G PATENT. PT TO BE NPO. CONTACT TO R/O C.DIFF. PT WITH R CHEST EMIR CATH HM T,TH,SAT LAST DIALYSIS TODAY OUTPUT UNK. PT ON EYELET OPERATOR. POC DISCUSSED WITH PT. ORIENTED TO ROOM,STAFF AND CALL LIGHT. MRSA SWAB OBTAINED. CALL LIGHT IS WITHIN REACH. WILL CONTINUE TO MONITOR.
--- NOTE | 2019-06-24 21:50 | NUR ---
Patient will be admitted to care of DR. CHING. Admited to TELE. Will go to room 107B. Belongings list completed. Report to LUIS ARIAS.
[2019-06-24 22:00] VITALS: BP 183/82
--- NOTE | 2019-06-24 22:00 | NUR ---
STOOL COLLECTED AND SENT TO LAB
--- NOTE | 2019-06-24 22:20 | NUR ---
PAGED MD CHING REGARDING ORDER OF 160MEQ K RIDER AND ER 40 MEQ TOTAL OF 200MEQ PER MD. IT IS THE DOSE TO BE GIVEN. CLARIFY IF OKAY TO GIVE INSULIN SINCE K 2.3 OK PT ON K RIDER.
[2019-06-24] MEDS: LACTATED RINGERS 1,000 ML IV SCH (22:37)
[2019-06-24] MEDS: metroNIDAZOLE 500 MG/NS PREMIX 100 ML IV SCH (22:46)
[2019-06-24] MEDS: METOPROLOL 25 MG TAB PO SCH (22:46)
--- NOTE | 2019-06-24 23:00 | NUR ---
NEW IV STARTED ON R UPPER ARM 20G ON FIRST ATTEMPT. PT TOLERATED WELL. ALL NEEDS MET.
[2019-06-25] VITALS: BP 180/89
[2019-06-25] MEDS ORDERED: KCL 20 MEQ/WATER INJ PREMIX 200 ML IV SCH
[2019-06-25] MEDS: VANCOMYCIN 500 MG VIAL GT SCH ×5 (00:10→23:11)
[2019-06-25] MEDS: BLOOD GLUCOSE MONITORING 1 DEV DEV FS SCH ×5 (00:10→23:16)
--- NOTE | 2019-06-25 00:10 | NUR ---
VS: 180/89 HR 81 97% RA RR 16. BG 257 INSULIN PER PROTOCOL. OK TO GIVE SINCE PT IS ON K-RIDER. TAMIA GIVEN. ALL NEEDS MET AT THIS TIME. CALL LIGHT IS WITHIN REACH.
[2019-06-25] MEDS: INSULIN LISPRO SLIDING SCALE 100 UNITS/ML VIAL SUBQ PRN ×3 (00:14→23:33)
--- NOTE | 2019-06-25 00:40 | NUR ---
SECOND BAG OF K-RIDER FROM ER NOW STARTED. PT TOLERATING WELL. WILL CONTINUE TO MONITOR.
--- NOTE | 2019-06-25 02:22 | NUR ---
PATIENT IS SLEEPING COMFORTABLY WITH EYES CLOSED. CHEST RISE AND FALL. NO S/S OF DISTRESS. CALL LIGHT IS WITHIN REACH.
[2019-06-25] MEDS: KCL 20 MEQ/WATER INJ PREMIX 200 ML IV SCH ×2 (03:27→04:00)
[2019-06-25 04:00] VITALS: BP 163/87
--- NOTE | 2019-06-25 04:00 | NUR ---
VSS B/P 163/87 HR 72. ALL NEEDS MET AT THIS TIME. CALL LIGHT IS WITHIN REACH.
[2019-06-25] MEDS: metroNIDAZOLE 500 MG/NS PREMIX 100 ML IV SCH ×3 (05:26→20:42)
--- NOTE | 2019-06-25 05:26 | NUR ---
SHC MEDICATIONS GIVEN. BG 74 PT IS NPO. WILL CONTINUE TO MONITOR. ALL SAFETY MEASURES ARE IN PLACE. CALL LIGHT IS WITHIN REACH.
[2019-06-25] MEDS: LACTATED RINGERS 1,000 ML IV SCH ×2 (05:51→09:47)
--- NOTE | 2019-06-25 06:45 | NUR ---
PATIENT IS SLEEPING COMFORTABLY IN BED. ALL NEEDS MET. WILL ENDORSE TO DAY RN. PT IS IN STABLE CONDITION.
[2019-06-25 07:11] LABS: BASOPHILS % (AUTO) 0.4 % (0.0-2.0); EOSINOPHILS # (AUTO) 0.1 K/uL (0-0.4); EOSINOPHILS % (AUTO) 0.9 % (0.0-4.0); HEMATOCRIT 28.9 % (36-52); HEMOGLOBIN 9.4 g/dL (12.0-18.0); LYMPHOCYTES # (AUTO) 1.3 K/uL (2.0-11.5); LYMPHOCYTES % (AUTO) 12.8 % (20.5-51.1); MEAN CORPUSCULAR HEMOGLOBIN 29 pg (27-31); MEAN CORPUSCULAR HGB CONC 32 g/dL (33-37); MEAN CORPUSCULAR VOLUME 89.9 fL (80-94); MONOCYTES # (AUTO) 0.5 K/uL (0.8-1.0); MONOCYTES % (AUTO) 5.3 % (1.7-9.3); NEUTROPHILS # (AUTO) 8.1 K/uL (1.8-7.7); NEUTROPHILS % (AUTO) 80.6 % (42.2-75.2); PLATELET COUNT (AUTO) 361 K/uL (140-450); RED BLOOD CELL COUNT(AUTO) 3.22 MIL/uL (4.20-6.10); RED CELL DISTRIBUTION WIDTH 18.5 % (11.6-13.7); WHITE BLOOD COUNT (AUTO) 10.1 K/uL (4.8-10.8)
--- NOTE | 2019-06-25 07:15 | NUR ---
RECEIVED REPORT FROM TANK HOUSE OPERATOR HELPER NURSE. PATIENT LYING DOWN IN BED SLEEPING, AROUSABLE BY VOICE. NO DISTRESS NOTED. DENIES ANY PAIN. AAOX4, CALM, COOPERATIVE, SKIN COLOR APPROPRIATE TO ETHNICITY, WARM TO TOUCH. SKIN INTACT. IV SITE INTACT, PATENT, AND IVF INFUSING PER MD ORDERS. ABDOMEN SOFT, NON-DISTENDED. REVIEWED PLAN OF CARE WITH PATIENT. PATIENT VERBALIZED UNDERSTANDING. SAFETY MEASURES IN PLACE, CALL LIGHT WITHIN REACH. WILL CONTINUE TO MONITOR.
[2019-06-25 07:26] LABS: ALBUMIN 1.7 g/dL (3.4-5.0); CREATININE 2.3 mg/dL (0.7-1.3); TOTAL BILIRUBIN 0.3 mg/dL (0.0-1.0)
[2019-06-25 08:00] VITALS: BP 170/81
[2019-06-25 08:17] LABS: CARBON DIOXIDE 30.4 mmol/L (21-32)
[2019-06-25 08:27] LABS: POTASSIUM 2.4 mmol/L (3.5-5.1)
--- NOTE | 2019-06-25 08:34 | NUR ---
PATIENT HAS BEEN SCREENED AND CATEGORIZED HIGH NUTRITION RISK. PATIENT WILL BE SEEN WITHIN 1-2 DAYS OF ADMISSION. 06/25/19-06/26/[address]
[2019-06-25] MEDS: PHARMACY COMMENTS MC SCH (09:00)
[2019-06-25] MEDS: KCL 20 MEQ/WATER INJ PREMIX 100 ML IV SCH ×6 (09:21→23:16)
[2019-06-25] MEDS: METOPROLOL 25 MG TAB PO SCH ×2 (09:22→20:41)
--- NOTE | 2019-06-25 09:32 | NUR ---
PATIENT LYING DOWN IN BED SLEEPING, AROUSABLE BY VOICE. NO DISTRESS NOTED. DENIES ANY PAIN. SCHEDULED MEDICATIONS DUE GIVEN. WILL CONTINUE TO MONITOR.
--- NOTE | 2019-06-25 10:30 | NUR ---
ASSISTED SUPERVISOR RECORD PRESS IN CLEANING AND REPOSITIONING PATIENT. NO DISTRESS NOTED. WILL CONTINUE TO MONITOR.
--- NOTE | 2019-06-25 11:19 | NUR ---
Envelope Machine Adjuster Note: Basic Screen: Yes High Risk DC Screen Yes Name: ROLO MCQUEEN Home Relationship: SISTER Pre-Admission Living Arrangements: Lives with Other Prior ADL Needs Assistance Current Home Health Name/Tel: YES - CANNOT RECALL AGENCY Current DME/02 Name/Tel: [facility] Current Hospice Name/Tel: N/A Current Dialysis Name/Tel: [facility] Healthcare Decision Maker: Patient Advance Directive No Physician Orders for Life Sustaining Treatment Form No Patient/Family Have Educational Needs No Discipline: Case Mgt/Social Svcs Tentative Discharge Plan/Destination: SNF/ECF Will require assistance post discharge: No Referred to Marketing Effectiveness Manager: No Tentative Discharge Plan Summary: Patient is a 69-year-old female admitted for infectious colitis and hypokalemic. Patient has PMHX of diabetes, hypertension, pacemaker, and renal disease. Patient was admitted from home. ENRIKE contacted [facility] and spoke to [facility]. Per Jenni, patient was discharged from [facility] and returned home with sister, Rolo Mcqeuen. ENRIKE contacted Rolo Mcqueen [phone]. Per Rolo, patient lives with her [address], [place] [address]. Rolo stated that patient receives home health but she could not recall what agency patient receives it. Rolo stated that patient has nurse come 3x a week. Patient also receives dialysis from [facility]. Rolo reported that patient's tentative discharge plan is to find a SNF to accept patient. Rolo stated that patient did not want to return to [facility]. ENRIKE will follow up as needed. Signature: RICCARDO Pollock Date: Jun 25, 2019 Time: 11:18
[2019-06-25 12:00] VITALS: BP 185/89
--- NOTE | 2019-06-25 12:24 | NUR ---
DR. JASSO AT BEDSIDE REVIEWING PLAN OF CARE WITH PATIENT. SCHEDULED MEDICATIONS DUE GIVEN. WILL CONTINUE TO MONITOR.
[2019-06-25] MEDS: NACL 0.45% 1,000 ML IV SCH (12:46)
[2019-06-25] MEDS: cloNIDine 0.1 MG TAB PO PRN (12:46)
--- NOTE | 2019-06-25 15:19 | NUR ---
06/25/19 RD INITIAL ASSESSMENT COMPLETED PLEASE REFER TO NUTRITION ASSESSMENT UNDER CARE ACTIVITY FOR ESTIMATED NUTRITIONAL NEEDS. 1. CONTINUE FULL DIET TOLERATED 2. IF PO INTAKE FALLS BELOW 50% CONSIDER ENSURE BID 3. WHEN PATIENT IS MEDICALLY STABLE CONSIDER ADVANCING DIET TO RENAL AND CCHO 60GM MECHANICAL SOFT 4. RD TO FOLLOW-UP 3-5 DAYS, MODERATE RISK GABRIELLA PINEDA, RD
[2019-06-25 16:00] VITALS: BP 146/78
--- NOTE | 2019-06-25 17:28 | NUR ---
PATIENT LYING DOWN IN BED, CONDITION UNCHANGED. SCHEDULED MEDICATIONS DUE GIVEN. WILL CONTINUE TO MONITOR.
--- NOTE | 2019-06-25 19:12 | NUR ---
GAVE REPORT TO J2EE PROGRAMMER NURSE FOR CONTINUITY OF CARE. PATIENT IN STABLE CONDITION.
--- NOTE | 2019-06-25 19:13 | NUR ---
RECEIVED REPORT FROM DAY SHIFT NURSE. PATIENT LYING DOWN IN BED SLEEPING, AROUSABLE BY VOICE. NO DISTRESS NOTED. DENIES ANY PAIN. SKIN WARM TO TOUCH. SKIN INTACT. IV SITE INTACT, PATENT, AND IVF INFUSING PER MD ORDERS. ABDOMEN SOFT, NON-DISTENDED. REVIEWED PLAN OF CARE WITH PATIENT. PATIENT VERBALIZED UNDERSTANDING. SAFETY MEASURES IN PLACE, CALL LIGHT WITHIN REACH. WILL CONTINUE TO MONITOR.
--- NOTE | 2019-06-25 20:42 | NUR ---
GIVEN FLAGYL AND METOPROLOL MD ORDERED. PT TOLERATED WELL.
[2019-06-25] MEDS ORDERED: KCL 20 MEQ/WATER INJ PREMIX 100 ML IV ONE (22:59)
--- NOTE | 2019-06-25 23:16 | NUR ---
GIVEN VANCOMYCIN MD ORDERED. BS CHECKED, 176, WILL ADMINISTER INSULIN. GIVEN LAST BAG OF KCL, PT TOLERATED WELL.
--- NOTE | 2019-06-25 23:33 | NUR ---
GIVEN INSULIN SLIDING SCALE. PT TOLERATE WELL.
[2019-06-26] VITALS: BP 159/83
--- NOTE | 2019-06-26 02:45 | NUR ---
PT SLEEPING IN BED. NO ACUTE DISTRESS NOTED.
[2019-06-26] MEDS: NACL 0.45% 1,000 ML IV SCH (05:15)
[2019-06-26] MEDS: BLOOD GLUCOSE MONITORING 1 DEV DEV FS SCH ×3 (05:15→17:18)
[2019-06-26] MEDS: metroNIDAZOLE 500 MG/NS PREMIX 100 ML IV SCH ×3 (05:15→20:15)
[2019-06-26] MEDS: VANCOMYCIN 500 MG VIAL GT SCH ×3 (05:16→17:24)
--- NOTE | 2019-06-26 05:16 | NUR ---
GIVEN FLAGYL AND MANUJLAO MD ORDERED. PT TOLERATED WELL. BS CHECKED 210. GIVEN INSULIN BASED ON SLIDING SCALE. PT TOLERATED WELL.
[2019-06-26] MEDS: INSULIN LISPRO SLIDING SCALE 100 UNITS/ML VIAL SUBQ PRN ×3 (05:24→17:31)
[2019-06-26 05:47] LABS: BASOPHILS % (AUTO) 0.3 % (0.0-2.0); EOSINOPHILS # (AUTO) 0.1 K/uL (0-0.4); HEMATOCRIT 28.6 % (36-52); HEMOGLOBIN 9.1 g/dL (12.0-18.0); LYMPHOCYTES # (AUTO) 1.2 K/uL (2.0-11.5); LYMPHOCYTES % (AUTO) 12.8 % (20.5-51.1); MEAN CORPUSCULAR HEMOGLOBIN 29 pg (27-31); MEAN CORPUSCULAR HGB CONC 32 g/dL (33-37); MEAN CORPUSCULAR VOLUME 90.6 fL (80-94); MONOCYTES # (AUTO) 0.4 K/uL (0.8-1.0); MONOCYTES % (AUTO) 4.7 % (1.7-9.3); NEUTROPHILS # (AUTO) 7.4 K/uL (1.8-7.7); NEUTROPHILS % (AUTO) 81.2 % (42.2-75.2); PLATELET COUNT (AUTO) 361 K/uL (140-450); RED BLOOD CELL COUNT(AUTO) 3.16 MIL/uL (4.20-6.10); RED CELL DISTRIBUTION WIDTH 19.3 % (11.6-13.7); WHITE BLOOD COUNT (AUTO) 9.1 K/uL (4.8-10.8)
[2019-06-26 06:18] LABS: MAGNESIUM 1.5 mg/dL (1.8-2.4); PHOSPHORUS 1.6 mg/dL (2.5-4.9)
--- NOTE | 2019-06-26 06:58 | NUR ---
PT SLEEPING IN BED. NO ACUTE DISTRESS NOTED.
--- NOTE | 2019-06-26 07:20 | NUR ---
Received report from PM nurseArmen. Pt is asleep, on room air, bed at lowest position, call light within reach.
[2019-06-26 08:00] VITALS: BP 163/82
[2019-06-26] MEDS: PHARMACY COMMENTS MC SCH (09:00)
--- NOTE | 2019-06-26 09:13 | NUR ---
DC PLANN[age] YRS OLD MALE PATIENT WAS ADMITTED FROM HOME WITH A DX OF INFECTIOUS COLOTIS AND HYPOKALEMIA. PT HAS A HX OF CHF, ESRD ON HD (TTHS) PT HAS RT UPPER CHEST TUNNELED HD CATH AT [facility]. DM,C-DIFF, DEMENTIA AND DEHYDRATION. STARTED ON IV FLAGYL AND PO VANCO AND IV K-RIDER . CONTINUE IVF , FULL LIQUID DIET AND NEPHRO CONSULT SEEN BY DR KYM RODRIGUEZ ORDERED HEMODIALYSIS TODAY. STOOL SENT TO LAB FOR C-DIFF AND + FOR C-DIFF PLACED PT ISOLATION. DC PLAN TO GO HOME WHEN STABLE .CM TO FOLLOW. Addendum: 06/28/19 at 1439 by Nanette Rogers CM RECEIVED AN DC ORDER BACK TO [facility]. CONTACTED PATIENT'S SISTER ROLO STARKS AT [phone] REGARDING DC PLAN. SHE STATED SHE DO NOT WANT THE PATIENT BACK TO [facility]. ORDER FAXED TO [facility]. CM WILL FOLLOW UP. Addendum: 06/28/19 at 9883 by Nanette Rogers CM CONTACTED MARYA OF [facility], MADE HER AWARETHAT PATIENT'S SISTER DOES NOT WANT THE PATIENT TO GO BACK TO [facility]. SHE STATED TO SEND REFERRAL TO [facility]. REFERRAL SENT. CONTACTED [facility], NO SNF BEDS AVAILABLE AT THIS TIME. RECEIVED A CALL FROM JEFF CASTELLANOS. HE STATED HE WILL REVIEW THE CASE AND WILL CALL ME BACK. Addendum: 06/29/19 at 1215 by Nanette Rogers CM PER CLAUDE ADMISSION AT [facility], NO LONG-TERM BEDS AVAILABLE AT THIS TIME. PER [facility], NO ISO BEDS AT THIS TIME. PER [facility], NO ROCKET SCIENTIST AND ISO BEDS AT THIS TIME. CONTACTED [facility], NO ANSWER. LEFT MESSAGE TO [facility]MISS[facility]. PER SHERICE TRISTAN [facility], TO GO AHEAD FAX THE REFERRAL TO [phone]. REFERRAL SENT. Addendum: 06/29/19 at 1620 by Nanette Rogers CM PER MANJULA [facility] [phone], NO ROCKET SCIENTIST BEDS AT THIS TIME. PER [facility] TRIST[facility] [phone], UNABLE TO ACCEPT THE PATIENT, NO LONG-TERM BEDS AT THIS TIME. PER ARCADIO TRISTAN [facility] [phone], NO MALE BEDS AT THIS TIME. BUT WILL TOUCH BASE WITH ME IF IN CASE ONE BECOME AVAILABLE. Addendum: 06/30/19 at 0857 by Nanette Rogers CM PER [facility], UNABLE TO ACCEPT THE PATIENT DUE TO NO ROCKET SCIENTIST BEDS AT THIS TIME. Addendum: 06/30/19 at 1535 by Nanette Rogers CM COLONIZATION OF MRSA NARES SENT TO [facility]. PER TRUMAN OF [facility], THEY ARE ABLE TO TAKE THE PATIENT AND WILL GO TO ROOM 106B UNDER DR. MATA. SENIOR COMPLIANCE OFFICER WILL BE AT 1830 BY [facility]. PRIMARY RN MARTIN MADE AWARE.
[2019-06-26] MEDS: METOPROLOL 25 MG TAB PO SCH ×2 (09:38→20:14)
--- NOTE | 2019-06-26 10:14 | NUR ---
Pt's magnesium was at 1.5 and phosphorous was at 1.6. Informed Dr. Curtis of abnormal lab values. No additional interventions needed.
[2019-06-26] MEDS ORDERED: MAG SULF 2000 MG/WATER PREMIX 50 ML IV SCH (10:30)
[2019-06-26 10:45] LABS: ALBUMIN 1.6 g/dL (3.4-5.0); ANION GAP 11.4 (8-16); CARBON DIOXIDE 27.4 mmol/L (21-32); CREATININE 2.7 mg/dL (0.7-1.3); POTASSIUM 3.8 mmol/L (3.5-5.1); TOTAL BILIRUBIN 0.3 mg/dL (0.0-1.0)
--- NOTE | 2019-06-26 11:19 | NUR ---
Informed by dialysis nurse Roxi that pt's Peter cath is clogged. He spoke to Dr Ramirez with order to hold dialysis today, give alteplase to sit in cath overnight, then retry hemodialysis tomorrow. Pt verbalized understanding & agree with POC.
[2019-06-26] MEDS ORDERED: ALTEPLASE 2 MG VIAL MC SCH (12:00)
--- NOTE | 2019-06-26 12:12 | NUR ---
Pt's blood sugar is at 157. Insulin coverage needed. Administered 2 units humalog subcutaneous, left upper arm.
[2019-06-26] MEDS: MUPIROCIN CA NASAL 2% 1GM TUBE NS SCH (12:45)
[2019-06-26] MEDS: CHLORHEXADINE GLUC 2% CLOTH TP SCH (12:47)
[2019-06-26] MEDS ORDERED: POTASSIUM PHOSPHATE 15 MM in NACL 0.9% 250 ML IV SCH (13:30)
[2019-06-26 16:00] VITALS: BP 194/92
[2019-06-26] MEDS: MORPHINE SULFATE 2 MG/ML SYR IVP PRN ×2 (16:30→22:07)
--- NOTE | 2019-06-26 16:30 | NUR ---
Pt is complaining of generalized, intermittent pain 7/10. Administered PRN morphine. Will reassess.
--- NOTE | 2019-06-26 17:18 | NUR ---
Pt's blood sugar is 232. Insulin coverage is needed. Administered 4 units humalog subcutaneous.
--- NOTE | 2019-06-26 19:43 | NUR ---
RECEIVED PATIENT FROM AM NURSE IN STABLE CONDITION. MED SURG PATIENT. ABLE TO FOLLOW SIMPLE COMMANDS. RESPIRATIONS EVEN, UNLABORED. SKIN WARM, DRY TO TOUCH. NO C/O PAIN. NO S/SX ACUTE DISTRESS. EMIR CATH ON RIGHT IJ. IV SITE 20 G TO RIGHT AC INTACT AND PATENT. IV SITE TO RIGHT UPPER ARM 22G INTACT AND PATENT. IV FLUIDS INFUSING WELL. CONTACT ISOLATION PRECAUTIONS OBSERVED BY ALL STAFF. BED IN LOWEST POSITION. SIDE RAILS UP X2. CALL LIGHT WITHIN REACH. WILL CONTINUE TO MONITOR.
[2019-06-26 21:36] VITALS: BP 187/97
[2019-06-26] MEDS: cloNIDine 0.1 MG TAB PO PRN ×2 (21:40→23:24)
--- NOTE | 2019-06-26 21:45 | NUR ---
PATIENT RESTING IN BED. CHANGED LINEN. NO S/SX ACUTE DISTRESS. NO C/O PAIN AT THIS TIME. IV FLUIDS INFUSING WELL. DUE MEDS GIVEN. BED IN LOWEST POSITION. CALL LIGHT WITHIN REACH. WILL CONTINUE TO MONITOR.
--- NOTE | 2019-06-26 22:07 | NUR ---
PT C/O GENERALIZED PAIN . MEDICATED ORDERED. WILL CONTINUE TO MONITOR.
--- NOTE | 2019-06-26 23:10 | NUR ---
REASSESSED BLOOD PRESSURE FOR CATAPRES USE. BP 164/ 81 HR 73. PATIENT COMFORTABLE WITH NO C/O PAIN. NO S/SX ACUTE DISTRESS. CALL LIGHT WITHIN REACH. WILL CONTINUE TO MONITOR.
[2019-06-27] MEDS: BLOOD GLUCOSE MONITORING 1 DEV DEV FS SCH ×4 (00:04→18:03)
[2019-06-27] MEDS: VANCOMYCIN 500 MG VIAL GT SCH ×4 (00:19→18:31)
[2019-06-27] MEDS: INSULIN LISPRO SLIDING SCALE 100 UNITS/ML VIAL SUBQ PRN ×4 (00:22→21:43)
--- NOTE | 2019-06-27 00:22 | NUR ---
BLOOD SUGAR WAS CHECKED RESULT 187. INSULIN COVERAGE GIVEN ORDERED. HAD SOME APPLE SAUCE. WILL CONTINUE TO MONITOR.
--- NOTE | 2019-06-27 02:25 | NUR ---
PATIENT ASLEEP. NO C/O PAIN. NO S/SX ACUTE DISTRESS. ISOLATION PRECAUTIONS OBSERVED. BED IN LOWEST POSITION. CALL LIGHT WITHIN REACH. WILL CONTINUE TO MONITOR.
--- NOTE | 2019-06-27 03:40 | NUR ---
ASLEEP. NO S/SX ACUTE DISTRESS. IV FLUIDS INFUSING WELL. FREQUENT CHECKS MADE BY STAFF. BED IN LOWEST POSITION. CALL LIGHT WITHIN REACH. WILL CONTINUE TO MONITOR.
--- NOTE | 2019-06-27 04:23 | NUR ---
CONTINUES IN STABLE CONDITION. NO S/SX ACUTE DISTRESS. ALL NEEDS ATTENDED TO. CALL LIGHT WITHIN REACH. WILL CONTINUE TO MONITOR.
[2019-06-27] MEDS: metroNIDAZOLE 500 MG/NS PREMIX 100 ML IV SCH ×3 (04:49→21:07)
--- NOTE | 2019-06-27 06:20 | NUR ---
AWAKE AND IN STABLE CONDITION. BLOOD GLUCOSE 170 MG/DL. 2 UNITS OF HUMALOG COVERAGE GIVEN SQ. DUE MEDS GIVEN ORDERED. NO C/O PAIN. NO S/SX ACUTE DISTRESS. CALL LIGHT WITHIN REACH. WILL CONTINUE TO MONITOR.
[2019-06-27 07:13] LABS: BASOPHILS % (AUTO) 0.4 % (0.0-2.0); EOSINOPHILS # (AUTO) 0.1 K/uL (0-0.4); EOSINOPHILS % (AUTO) 1.1 % (0.0-4.0); HEMATOCRIT 26.6 % (36-52); HEMOGLOBIN 8.6 g/dL (12.0-18.0); LYMPHOCYTES # (AUTO) 1.2 K/uL (2.0-11.5); LYMPHOCYTES % (AUTO) 15.7 % (20.5-51.1); MEAN CORPUSCULAR HEMOGLOBIN 29 pg (27-31); MEAN CORPUSCULAR HGB CONC 32 g/dL (33-37); MEAN CORPUSCULAR VOLUME 89.7 fL (80-94); MONOCYTES # (AUTO) 0.5 K/uL (0.8-1.0); NEUTROPHILS # (AUTO) 5.8 K/uL (1.8-7.7); NEUTROPHILS % (AUTO) 76.8 % (42.2-75.2); PLATELET COUNT (AUTO) 352 K/uL (140-450); RED BLOOD CELL COUNT(AUTO) 2.97 MIL/uL (4.20-6.10); RED CELL DISTRIBUTION WIDTH 19.5 % (11.6-13.7); WHITE BLOOD COUNT (AUTO) 7.6 K/uL (4.8-10.8)
--- NOTE | 2019-06-27 07:16 | NUR ---
ENDORSED PATIENT TO AM SHIFT NURSE IN STABLE CONDITION.
[2019-06-27 07:35] LABS: ANION GAP 10.3 (8-16); CARBON DIOXIDE 25.2 mmol/L (21-32); CREATININE 2.6 mg/dL (0.7-1.3); POTASSIUM 3.5 mmol/L (3.5-5.1)
[2019-06-27 07:43] LABS: ALBUMIN 1.5 g/dL (3.4-5.0); CARBON DIOXIDE 25.5 mmol/L (21-32); CREATININE 2.6 mg/dL (0.7-1.3); POTASSIUM 3.5 mmol/L (3.5-5.1); TOTAL BILIRUBIN 0.2 mg/dL (0.0-1.0)
[2019-06-27 07:45] LABS: MAGNESIUM 1.8 mg/dL (1.8-2.4)
[2019-06-27 07:46] LABS: PHOSPHORUS 2.6 mg/dL (2.5-4.9)
[2019-06-27] MEDS: PHARMACY COMMENTS MC SCH ×3 (09:00→18:31)
[2019-06-27] MEDS: METOPROLOL 25 MG TAB PO SCH ×2 (09:02→21:08)
--- NOTE | 2019-06-27 09:38 | NUR ---
Eusebio, dialysis nurse at bedside to initiate hemodialysis tx, wearing proper PPE for enteral contact precautions. Pt resting in bed, awake, no c/o discomfort, no signs of distress. Call light within reach.
[2019-06-27] MEDS: NIFEdipine 60 MG TABER PO SCH ×2 (10:00→13:24)
[2019-06-27] MEDS: MUPIROCIN CA NASAL 2% 1GM TUBE NS SCH (12:51)
[2019-06-27] MEDS: CHLORHEXADINE GLUC 2% CLOTH TP SCH (12:52)
[2019-06-27] MEDS: MORPHINE SULFATE 2 MG/ML SYR IVP PRN ×2 (12:52→18:18)
--- NOTE | 2019-06-27 13:00 | NUR ---
Per Eusebio dialysis nurse, hemodialysis completed with 1L output. Right chest dialysis cath intact & asymptomatic, dressing clean & dry. Pt in no distress, no c/o discomfort.
[2019-06-27 13:24] VITALS: BP 183/90
--- NOTE | 2019-06-27 13:24 | NUR ---
Nifedipine given at this time d/t BP 183/90. Pt in high fowlers in bed, eating lunch, no c/o discomfort/pain. Sister at bedside. Call light within reach.
[2019-06-27 14:30] VITALS: BP 187/85
[2019-06-27] MEDS: cloNIDine 0.1 MG TAB PO PRN (14:49)
--- NOTE | 2019-06-27 14:49 | NUR ---
Catapress administered for persistent HTN. Pt resting in bed, watching TV, no c/o discomfort, no signs of distress. Call light within reach.
--- NOTE | 2019-06-27 16:40 | NUR ---
Dr Curtis notified on the phone re: pt's persistent HTN after nifedipine & clonidine. Pt asymptomatic. New orders received, noted & carried out.
[2019-06-27] MEDS ORDERED: LABETALOL 200 MG TAB ONE (16:52)
--- NOTE | 2019-06-27 16:55 | NUR ---
Labetalol administered po. Pt in high fowlers in bed, eating pudding. No signs of distress. No c/o discomfort. Call light within reach.
[2019-06-27 17:55] VITALS: BP 154/85
--- NOTE | 2019-06-27 17:56 | NUR ---
Current BP = 154/85, HR = 90. Pt in high fowlers in bed, eating dinner, watching TV. No signs of distress, no c/o discomfort, respirations even & nonlabored. Sister Radha at bedside. Call light within reach.
--- NOTE | 2019-06-27 19:25 | NUR ---
Report given to pm nurse Haley. Also informed of pt's sister's request to have Dr Montgomery (highwall drill operator) call her tomorrow for updates.
--- NOTE | 2019-06-27 19:26 | NUR ---
RECEIVED REPORT FROM AM SHIFT NURSE CHRSI. PATIENT ASLEEP IN BED. NO APPARENT DISTRESS NOTED. VISIBLE CHEST RISE AND FALL NOTED. WITH A GRAEME CATHETER ON RIGHT UPPER CHEST FOR DIALYSIS ACCESS. WITH RIGHT AC 20 GAUGE PERIPHERAL IV AND RIGHT UPPER ARM 22 GUAGE RUNNING IVF. ON CONTACT PRECAUTIONS FOR C. DIFF. BED ALARM ON. BED ON LOW POSITION. WILL CONTINUE TO MONITOR.
[2019-06-27] MEDS: LORazepam 2 MG/ML VIAL IVP PRN (21:10)
--- NOTE | 2019-06-27 21:20 | NUR ---
PATIENT ASLEEP IN BED. NO APPARENT DISTRESS NOTED. VISIBLE CHEST RISE AND FALL NOTED. BED ON LOW POSITION. BED ALARM ON. WILL CONTINUE TO MONITOR.
--- NOTE | 2019-06-27 23:15 | NUR ---
REPOSITIONED AND TURNED PATIENT FOR COMFORT. TOLERATED WELL. BED ON LOW POSITION. BED ALARM ON. CALL LIGHT WITHIN REACH. WILL CONTINUE TO MONITOR.
[2019-06-28] VITALS: BP 121/68
[2019-06-28] MEDS: VANCOMYCIN 500 MG VIAL GT SCH ×4 (00:25→17:37)
[2019-06-28] MEDS: BLOOD GLUCOSE MONITORING 1 DEV DEV FS SCH ×4 (00:27→17:37)
[2019-06-28] MEDS: INSULIN LISPRO SLIDING SCALE 100 UNITS/ML VIAL SUBQ PRN ×4 (00:29→17:39)
--- NOTE | 2019-06-28 01:10 | NUR ---
PATIENT ASLEEP IN BED. NO APPARENT DISTRESS NOTED. VISIBLE CHEST RISE AND FALL NOTED. BED ON LOW POSITION. BED ALARM ON. WILL CONTINUE TO MONITOR. TURNED AND REPOSITIONED FOR COMFORT.
--- NOTE | 2019-06-28 03:10 | NUR ---
PATIENT ASLEEP IN BED. NO APPARENT DISTRESS NOTED. VISIBLE CHEST RISE AND FALL. WILL CONTINUE TO MONITOR.
--- NOTE | 2019-06-28 05:00 | NUR ---
PATIENT ASLEEP IN BED. NO APPARENT DISTRESS NOTED. BED ON LOW POSITION. BED ALARM ON. ON CONTACT PRECAUTIONS. OBSERVED AT ALL TIMES. WILL CONTINUE TO MONITOR.
[2019-06-28] MEDS: metroNIDAZOLE 500 MG/NS PREMIX 100 ML IV SCH ×3 (05:23→21:35)
--- NOTE | 2019-06-28 06:56 | NUR ---
PATIENT ASLEEP IN BED. NO APPARENT DISTRESS NOTED. VISIBLE CHEST RISE AND FALL NOTED. WILL ENDORSE TO NEXT SHIFT FOR CONTINUITY OF CARE.
--- NOTE | 2019-06-28 07:20 | NUR ---
RECEIVED REPORT FROM DROP TESTER NURSE BOBO. PT AWAKE, ORIENTED X2, SHOWS SIGNS OF CONFUSION. IV ON RT AC 20 GA RUNNING IVF TKO, AND IV ON RT UA ON SALINE LOCK, FLUSHING WITH NO RESISTANCE. RESPIRATIONS EVEN AND UNLABORED ON RA. ACTIVE BS, SOFT ABD. PT IS ON FALL RISK PRECAUTIONS, SAFETY MEASURES IN PLACE. REVIEWED POC WITH PT, PT WILL NEED REINFORCEMENT.
--- NOTE | 2019-06-28 07:20 | NUR ---
ENDORSED TO AM SHIFT NURSE FOR CONTINUITY OF CARE.
[2019-06-28 08:00] VITALS: BP 128/69
[2019-06-28 08:24] LABS: ALBUMIN 1.4 g/dL (3.4-5.0); CARBON DIOXIDE 26.3 mmol/L (21-32); CREATININE 2.4 mg/dL (0.7-1.3); POTASSIUM 3.3 mmol/L (3.5-5.1); TOTAL BILIRUBIN 0.3 mg/dL (0.0-1.0)
[2019-06-28 08:35] LABS: BASOPHILS % (AUTO) 0.6 % (0.0-2.0); EOSINOPHILS # (AUTO) 0.1 K/uL (0-0.4); EOSINOPHILS % (AUTO) 1.5 % (0.0-4.0); HEMATOCRIT 25.8 % (36-52); HEMOGLOBIN 8.4 g/dL (12.0-18.0); LYMPHOCYTES # (AUTO) 1.2 K/uL (2.0-11.5); LYMPHOCYTES % (AUTO) 17.7 % (20.5-51.1); MEAN CORPUSCULAR HEMOGLOBIN 29 pg (27-31); MEAN CORPUSCULAR HGB CONC 32 g/dL (33-37); MEAN CORPUSCULAR VOLUME 89.8 fL (80-94); MONOCYTES # (AUTO) 0.5 K/uL (0.8-1.0); MONOCYTES % (AUTO) 7.7 % (1.7-9.3); NEUTROPHILS % (AUTO) 72.5 % (42.2-75.2); PLATELET COUNT (AUTO) 341 K/uL (140-450); RED BLOOD CELL COUNT(AUTO) 2.88 MIL/uL (4.20-6.10); RED CELL DISTRIBUTION WIDTH 19.8 % (11.6-13.7); WHITE BLOOD COUNT (AUTO) 6.9 K/uL (4.8-10.8)
[2019-06-28] MEDS: METOPROLOL 25 MG TAB PO SCH ×2 (08:48→20:50)
--- NOTE | 2019-06-28 09:00 | NUR ---
PT ASKS MULTIPLE TIMES TO BE READJUSTED IN BED AFTER REPOSITIONING 10 MINS AGO, PT NEEDS FREQUENT REMINDERS AND REORIENTATION.
[2019-06-28] MEDS ORDERED: METR250T2 PO (09:47)
--- NOTE | 2019-06-28 11:10 | NUR ---
PT REQUESTS FOR MORE FOOD, NOTIFIED PT THAT HE CANNOT HAVE SALTY FOOD D/T RECOMMENDED DIET BY . PT GIVEN JANUARY MIMS.
[2019-06-28] MEDS ORDERED: POTASSIUM CHLORIDE 10 MEQ TABER PO SCH (12:00)
[2019-06-28] MEDS: MUPIROCIN CA NASAL 2% 1GM TUBE NS SCH (12:07)
[2019-06-28] MEDS: CHLORHEXADINE GLUC 2% CLOTH TP SCH (12:08)
[2019-06-28] MEDS: MORPHINE SULFATE 2 MG/ML SYR IVP PRN ×3 (12:12→22:21)
--- NOTE | 2019-06-28 13:30 | NUR ---
NOTIFIED MANAGER TECHNICAL COMPLAINT ANALYST REGARDING PT'S REQUEST FOR MORE FOOD, GIVEN EXT NUMBER TO RECEIVE UPDATES.
--- NOTE | 2019-06-28 15:00 | NUR ---
PT GIVEN CHICKEN SALAD SANDWICH AND SHERBET. PT GIVEN EDUCATION THAT DIET IS TO BE MONITORED D/T ORDERED DIET.
[2019-06-28 16:00] VITALS: BP 149/80
--- NOTE | 2019-06-28 16:00 | NUR ---
PT REPORTS "I FEEL NERVOUS, I CANNOT BREATHE", PT'S O2 SAT 99%, INSTRUCTED TO TAKE DEEP BREATHS INTO THE NOSE AND OUT THROUGH THE MOUTH SLOWLY. WILL ADMINISTER ATIVAN FOR ANXIETY PER ORDER.
[2019-06-28] MEDS: LORazepam 2 MG/ML VIAL IVP PRN (16:02)
--- NOTE | 2019-06-28 17:10 | NUR ---
PT RESTING COMFORTABLY IN BED, PT HAS NO C/O PAIN OR SIGNS OF ANXIETY.
--- NOTE | 2019-06-28 19:20 | NUR ---
ENDORSED PT TO COMMERCIAL CORRESPONDENT NURSE TOMMY PT HAS NO SIGNS OF DISTRESS AT THIS TIME.
--- NOTE | 2019-06-28 19:21 | NUR ---
RECD. RESTING IN BED, AWAKE, A/OX2. REORIENTED TO HOSPITAL SETTING. RESPIRATION EVEN AND UNLABORED. COARSE LUNG SOUNDS NOTED ON BILATERAL LUNG AUSCULTATION. WITH OCCASIONAL UNPRODUCTIVE COUGHING NOTED. IV OF NS A TKO INFUSING, RIGHT UPPER ARM G18. WITH RIGHT AC G 20, SALINE LOCK AND RIGHT UPPER CHEST EMIR CATH INTACT. SAFETY MEASURES ENFORCED, BED AT THE LOWEST POSITION, BED ON ALARM, CALL LIGHT IN REACH. PLAN OF CARE FOR THE SHIFT DISCUSSED. NEEDS REINFORCEMENT. DENIES PAIN 0/10.
[2019-06-28] MEDS: LABETALOL 200 MG TAB PO SCH (20:49)
--- NOTE | 2019-06-28 20:50 | NUR ---
DUE PO [id number] GIVEN, TOLERATED WELL. SNACK FOR THE NIGHT GIVEN, ATE 50%.
[2019-06-29] VITALS: BP 169/86
--- NOTE | 2019-06-29 00:18 | NUR ---
COMPLAINED OF UNABLE TO EXPECTORATE PHLEGM WHEN HE IS COUGHING. MEDICATED WITH ROBITUSSIN 100 MG. PO ORDERED.
[2019-06-29] MEDS: VANCOMYCIN 500 MG VIAL GT SCH ×4 (00:34→17:34)
[2019-06-29] MEDS: BLOOD GLUCOSE MONITORING 1 DEV DEV FS SCH ×4 (00:39→18:10)
[2019-06-29] MEDS: INSULIN LISPRO SLIDING SCALE 100 UNITS/ML VIAL SUBQ PRN ×4 (00:41→17:38)
[2019-06-29] MEDS: guaiFENesin 20 MG/ML UDC PO PRN ×2 (01:18→21:04)
--- NOTE | 2019-06-29 01:20 | NUR ---
NO COUGHING NOTED, SLEEPING COMFORTABLY IN BED.
--- NOTE | 2019-06-29 04:00 | NUR ---
REPOSITIONED IN BED FOR THE FIFTH TIME. MADE COMFORTABLE IN BED WITH PILLOWS.
[2019-06-29] MEDS: metroNIDAZOLE 500 MG/NS PREMIX 100 ML IV SCH (04:38)
--- NOTE | 2019-06-29 06:58 | NUR ---
CONDITION REMAIN STABLE. NO DIARRHEA NOTED DURING SHIFT. ALL NEEDS ATTENDED.
--- NOTE | 2019-06-29 07:22 | NUR ---
RECEIVED REPORT FROM NIGHT NURSE. PATIENT IS ON ROOM AIR, AAOX1-2. MECHANICAL SOFT DIET, BEDBOUND. PATIENT IS ON CONTACT PRECAUTIONS FOR MRSA NARES AND C.DIFF. IV TO RIGHT AC 20G. PATIENT IS TO HAVE HEMODIALYSIS TODAY AND THERE IS A DISCHARGE ORDER BACK TO FACILITY. WILL FOLLOW UP
[2019-06-29 07:52] LABS: BASOPHILS # (AUTO) 0.1 K/uL (0.00-0.22); BASOPHILS % (AUTO) 0.7 % (0.0-2.0); EOSINOPHILS # (AUTO) 0.1 K/uL (0-0.4); EOSINOPHILS % (AUTO) 1.7 % (0.0-4.0); HEMOGLOBIN 9.2 g/dL (12.0-18.0); LYMPHOCYTES # (AUTO) 1.2 K/uL (2.0-11.5); LYMPHOCYTES % (AUTO) 15.8 % (20.5-51.1); MEAN CORPUSCULAR HEMOGLOBIN 30 pg (27-31); MEAN CORPUSCULAR HGB CONC 33 g/dL (33-37); MEAN CORPUSCULAR VOLUME 90.2 fL (80-94); MONOCYTES # (AUTO) 0.6 K/uL (0.8-1.0); NEUTROPHILS # (AUTO) 5.7 K/uL (1.8-7.7); NEUTROPHILS % (AUTO) 73.8 % (42.2-75.2); PLATELET COUNT (AUTO) 414 K/uL (140-450); WHITE BLOOD COUNT (AUTO) 7.7 K/uL (4.8-10.8)
[2019-06-29 08:00] VITALS: BP 154/84
--- NOTE | 2019-06-29 08:26 | NUR ---
DIALYSIS NURSE AT BEDSIDE. GAVE CBC, CHEM AND ORDER FOR HD.
[2019-06-29] MEDS: PHARMACY COMMENTS MC SCH (08:40)
[2019-06-29] MEDS: METOPROLOL 25 MG TAB PO SCH (08:41)
[2019-06-29] MEDS: VIT-B COMP/VIT-C/FOLIC ACID 1 TAB PO SCH (08:41)
[2019-06-29] MEDS: NIFEdipine 60 MG TABER PO SCH (08:41)
[2019-06-29] MEDS: LABETALOL 200 MG TAB PO SCH ×2 (08:41→21:04)
--- NOTE | 2019-06-29 08:42 | NUR ---
DID NOT ADMINISTER MORNING MEDICATION D/T DIALYSIS NURSE AT BEDSIDE FOR DIALYSIS TREATMENT
[2019-06-29] MEDS ORDERED: EPOETIN ALFA 10,000 UNITS/ML VIAL IV SCH (09:00)
[2019-06-29 10:58] LABS: CREATININE 2.7 mg/dL (0.7-1.3)
--- NOTE | 2019-06-29 11:23 | NUR ---
PER SISTER KENDALL, SHE DOESN'T NOT WANT TO GO BACK TO [facility]. WEAPONS DESIGNER GERARD IS AWARE AND IS FINDING PLACEMENT ELSEWHERE.
[2019-06-29 11:36] LABS: ALBUMIN 1.7 g/dL (3.4-5.0); ANION GAP 16.3 (8-16); CARBON DIOXIDE 22.6 mmol/L (21-32); POTASSIUM 3.9 mmol/L (3.5-5.1); TOTAL BILIRUBIN 0.3 mg/dL (0.0-1.0)
--- NOTE | 2019-06-29 12:30 | NUR ---
ADMINISTERED 4U INSULIN FOR BLOOD SUGAR OF 208. GAVE MORPHINE FOR PAIN. WILL RE-ASSESS
[2019-06-29] MEDS: MUPIROCIN CA NASAL 2% 1GM TUBE NS SCH (12:38)
[2019-06-29] MEDS: CHLORHEXADINE GLUC 2% CLOTH TP SCH (12:38)
[2019-06-29] MEDS: MORPHINE SULFATE 2 MG/ML SYR IVP PRN ×2 (12:45→18:54)
--- NOTE | 2019-06-29 12:45 | NUR ---
ADMINISTERED MORPHINE IVP FOR GENERALIZED PAIN. WILL RE-ASSESS
--- NOTE | 2019-06-29 14:00 | NUR ---
PATIENT IS SCREAMING OUT FOR HIS SISTER KENDALL. REMINDED PATIENT THAT I ASSISTED HIM IN CALLING HER EARLIER AND THAT HE SPOKE WITH HER. PATIENT HAS NO RECOLLECTION OF SPEAKING WITH SISTER. WILL CONTINUE TO RE-ORIENT PATIENT. PATIENT IS VERY AGITATED AT THIS TIME.
[2019-06-29] MEDS: LORazepam 2 MG/ML VIAL IVP PRN ×2 (14:43→21:28)
--- NOTE | 2019-06-29 14:44 | NUR ---
ADMINISTERED ATIVAN FOR ANXIETY AND AGITATION. PER PATIENTS REQUESTS, CALLED SISTER KENDALL AGAIN FROM THE PHONE IN HIS ROOM. SISTER IS AWARE OF HIS AGITATION AND IS SPEAKING WITH HIM ON THE PHONE.
[2019-06-29 16:00] VITALS: BP 171/92
--- NOTE | 2019-06-29 17:38 | NUR ---
ADMINISTERED INSULIN 6U FOR BLOOD SUGAR OF 281. PATIENT IS SITTING UP AT BEDSIDE. CALL LIGHT IN FRONT OF PATIENT.
--- NOTE | 2019-06-29 18:02 | NUR ---
PATIENTS SISTER AT BEDSIDE. INFORMED HER ON PATIENTS PLAN OF CARE.
--- NOTE | 2019-06-29 18:55 | NUR ---
ADMINISTERED MORPHINE FOR PAIN. WILL ENDORSE TO STORAGE MANAGEMENT CONSULTANT TO RE-ASSESS PAIN LEVEL
--- NOTE | 2019-06-29 19:10 | NUR ---
RECD. RESTING IN BED, AWAKE, A/OX2, REORIENTED TO HOSPITAL SETTING. RESPIRATION EVEN AND UNLABORED. IV OF NS AT 10 ML/HR INFUSING, RIGHT UPPER ARM G22, SALINE LOCK AT THE RIGHT AC G20, PATENT AND INTACT. TUNNEL CATH FOR DIALYSIS AT THE RIGHT UPPER CHEST WITH DRESSING DRY AND INTACT. SAFETY MEASURES ENFORCED, BED ON THE LOWEST POSITION, SIDE RAILS UP, CALL LIGHT IN REACH. PLAN OF CARE FOR THE SHIFT DISCUSSED. NEEDS REINFORCEMENT. BODY PAINS DECREASED TO 3/10, WILL CONTINUE TO MONITOR.
--- NOTE | 2019-06-29 21:28 | NUR ---
PT CALLING LOUDLY FROM HIS ROOM,ANXIOUS AND AGITATED. ADMINISTERED ATIVAN PRN ORDERS
[2019-06-30] VITALS: BP 168/96
--- NOTE | 2019-06-30 | NUR ---
SLEEPING COMFORTABLY IN BED.
[2019-06-30] MEDS: BLOOD GLUCOSE MONITORING 1 DEV DEV FS SCH ×3 (00:21→12:08)
[2019-06-30] MEDS: VANCOMYCIN 500 MG VIAL GT SCH ×4 (00:21→17:18)
[2019-06-30] MEDS: INSULIN LISPRO SLIDING SCALE 100 UNITS/ML VIAL SUBQ PRN ×3 (00:23→12:22)
--- NOTE | 2019-06-30 02:00 | NUR ---
CLEANSED AND MADE COMFORTABLE IN BED WITH WARM BLANKETS AND PILLOWS.
[2019-06-30] MEDS: MORPHINE SULFATE 2 MG/ML SYR IVP PRN ×3 (03:05→16:05)
--- NOTE | 2019-06-30 04:30 | NUR ---
AWAKE IN BED, ENCOURAGED TO GO BACK TO SLEEP. NO DISTRESS NOTED.
[2019-06-30] MEDS: guaiFENesin 20 MG/ML UDC PO PRN (06:15)
--- NOTE | 2019-06-30 06:15 | NUR ---
WITH PERSISTENT UNPRODUCTIVE COUGHING, MEDICATED WITH ROBITUSSIN ORDERED.
--- NOTE | 2019-06-30 07:20 | NUR ---
RECEIVED REPORT FROM NIGHT NURSE. PT IS AWAKE AND ALERT, AAOX2, PT IS STABLE, NO SIGNS OF DISTRESS NOTED. INTRODUCE SELF, UPDATE WHITEBOARD, SAFETY MEASURES IN PLACE.
[2019-06-30 08:00] VITALS: BP 188/99
[2019-06-30] MEDS ORDERED: VALSARTAN 80 MG TAB PO SCH (09:00)
[2019-06-30] MEDS: NIFEdipine 60 MG TABER PO SCH (09:24)
[2019-06-30] MEDS: VIT-B COMP/VIT-C/FOLIC ACID 1 TAB PO SCH (09:25)
[2019-06-30] MEDS: LABETALOL 200 MG TAB PO SCH (09:25)
[2019-06-30] MEDS: PHARMACY COMMENTS MC SCH (09:39)
--- NOTE | 2019-06-30 10:08 | NUR ---
MEDICATED PT FOR SEVERE BACK AND ABDOMINAL PAIN 01/30, PT EDUCATION GIVEN, PT VERBALIZED UNDERSTANDING, PT IS STABLE, NO SIGNS OF DISTRESS NOTED. CALL LIGHT WITHIN REACH.
--- NOTE | 2019-06-30 12:00 | NUR ---
PT RESTING IN BED, NO SIGNS OF DISTRESS NOTED, CALL LIGHT WITHIN REACH. SAFETY MEASURES IN PLACE.
[2019-06-30] MEDS: CHLORHEXADINE GLUC 2% CLOTH TP SCH (12:19)
[2019-06-30] MEDS: MUPIROCIN CA NASAL 2% 1GM TUBE NS SCH (12:19)
--- NOTE | 2019-06-30 14:16 | NUR ---
06/30/19 RD FOLLOW UP COMPLETED PLEASE REFER TO NUTRITION ASSESSMENT UNDER CARE ACTIVITY FOR ESTIMATED NUTRITIONAL NEEDS. 1. RECOMMEND SWALLOW EVALUATION FOR MODIFIED FOOD TEXTURES/LIQUIDS 2. CONTINUE DIET WITH RENAL AND CCHO 60GM DIETARY RESTRICTIONS IN ADDITION TO RECOMMENDED FOOD TEXTURES BY SKIDDER LOADER 3. RECOMMEND NEPRO BID 4. PROVIDE ASSISTANCE DURING MEALS 5. RD TO FOLLOW-UP 2-3 DAYS, HIGH RISK GABRIELLA PINEDA, RD
--- NOTE | 2019-06-30 15:29 | NUR ---
PT IN BED, PT IS AWAKE RESTING IN BED, NO SIGNS OF DISTRESS NOTED, RESPIRATIONS ARE EVEN AND UNLABORED ON ROOM AIR. CALL LIGHT WITHIN REACH.
[2019-06-30 16:00] VITALS: BP 184/95
--- NOTE | 2019-06-30 16:05 | NUR ---
GAVE MORPHINE FOR SEVER ABDOMINAL AND BACK PAIN 01/30, EDUCATION GIVEN, PT TOLERATED WELL, PT IS STABLE, CALL LIGHT WITHIN REACH.
[2019-06-30] MEDS: LORazepam 2 MG/ML VIAL IVP PRN (17:16)
--- NOTE | 2019-06-30 17:16 | NUR ---
PT AGITATED AND ANXIOUS, GAVE ATIVAN TO HELP HIM RELAX. EDUCATION GIVEN, PT TOLERATED WELL, CALL LIGHT WITHIN REACH.
--- NOTE | 2019-06-30 18:21 | NUR ---
CALLED [facility] AND GAVE REPORT TO MARK ABOUT PT.
--- NOTE | 2019-06-30 18:50 | NUR ---
PT DISCHARGED TO [facility], PT PICKED UP BY TRANSPORT, PT TRANSFERRED TO [facility], PT IS STABLE,
[2019-06-30] MEDS ORDERED: LABETALOL 200 MG TAB PO SCH (21:00)
[2019-07-01] MEDS ORDERED: VALSARTAN 80 MG TAB PO SCH (09:00)
== END 2019-06-30 18:50 | DRG 371 ==
LOC: MED 16:57 → MTU 20:41
PROVIDERS: ADMIT Internal Medicine Pulmonary Disease; ATTEND Internal Medicine Pulmonary Disease
PROC: 5A1D70Z Performance of Urinary Filtration, Intermittent, Less than 6 Hours Per Day (ICD-10-PCS; principal; 2019-06-26)
PROC: 5A1D70Z Performance of Urinary Filtration, Intermittent, Less than 6 Hours Per Day (ICD-10-PCS; 2019-06-27)
PROC: 5A1D70Z Performance of Urinary Filtration, Intermittent, Less than 6 Hours Per Day (ICD-10-PCS; 2019-06-29)
DX: A04.72 Enterocolitis due to Clostridium difficile, not specified as recurrent (principal); N18.6 End stage renal disease; E44.0 Moderate protein-calorie malnutrition; I13.2 Hypertensive heart and chronic kidney disease with heart failure and with stage 5 chronic kidney disease, or end stage renal disease; Z68.1 Body mass index [BMI] 19.9 or less, adult; A09 Infectious gastroenteritis and colitis, unspecified; Z99.2 Dependence on renal dialysis; E11.22 Type 2 diabetes mellitus with diabetic chronic kidney disease; E78.5 Hyperlipidemia, unspecified; E83.39 Other disorders of phosphorus metabolism; E83.42 Hypomagnesemia; E86.0 Dehydration; E87.6 Hypokalemia; I50.9 Heart failure, unspecified; N40.0 Benign prostatic hyperplasia without lower urinary tract symptoms; F03.90 Unspecified dementia, unspecified severity, without behavioral disturbance, psychotic disturbance, mood disturbance, and anxiety; R62.7 Adult failure to thrive; D63.8 Anemia in other chronic diseases classified elsewhere; Z22.322 Carrier or suspected carrier of Methicillin resistant Staphylococcus aureus; Z86.19 Personal history of other infectious and parasitic diseases
CPT/HCPCS: 36415; 36600; 71045; 80048; 80053; 82803; 82948; 83605; 83735; 83880; 84100; 84484; 85025; 87040; 87070; 87081; 90935; 93005; 96374; 99285; J0885; J1644; J1815; J2060; J2270; J2997; J3370; J3475; J3480; J3490; J7030; J7120; Q0092